=== PATIENT | male | born 1945 | race Two or more races ===

== ENCOUNTER 2024-03-20 14:27 | Emergency (ER) | payer MEDICARE, MEDICAID, SELFPAY ==
[2024-03-20 14:41] VITALS: BP 140/91; PULSE 80; RESP 19; TEMP 36.8; O2SAT 98; BMI 42.0
--- NOTE | 2024-03-20 14:54 | XR_ITS ---
Examination: CT abdomen and pelvis without contrast. Coronal 3-D reconstructions. Sagittal 2-D reconstructions. Date and time of exam:March 20, 2024 at 1500 hrs. Indications: Onset generalized abdominal pain today CTDI: vol (mGy): 16.7 DLP: (mGycm): 1100 Technique: Axial images of the abdomen have been obtained, 3 mm slice thickness Intravenous contrast material has not been administered. Low dose protocols were performed. One or more of the following dose reduction techniques were used; automated exposure control, adjustment of the mA and/or KV according to patient size, use of iterative reconstruction technique. Findings: No focal liver or splenic lesions Absent gallbladder Edema in the duodenum axial image 65 No pancreatic edema Mild renal parenchymal scar formation No pericecal inflammatory change No bowel obstruction No diverticulitis Eccentric thickening of the urinary bladder wall, anteriorly measuring up to 10 mm Transverse prostate dimension 4.3 cm Advanced degenerative disc disease L1-L2, L4-L5, L5-S1 Impression: Edema involving the duodenum consistent with active peptic disease duodenum Mild renal parenchymal scar formation, mild perinephric stranding consider urinary tract infection Abnormal thickening of the urinary bladder wall anteriorly measuring up to 10 mm, differential would include cystitis, early bladder carcinoma not excluded, consider cystoscopy follow-up
--- NOTE | 2024-03-20 14:54 | PD.EDRME ---
Rapid Medical Screening Exam RME Arrival date/time: 03/20/24 14:27 78-year-old male presents the emergency department complaint of abdominal pain all over the last couple of weeks seen by his PCP with started on Cipro Chief Complaint: Abdominal Pain Vital signs: Vital Signs Temperature 98.3 F 03/20/24 14:41 Pulse Rate 80 03/20/24 14:41 Respiratory Rate 19 03/20/24 14:41 Blood Pressure 140/91 H 03/20/24 14:41 Pulse Oximetry (%) 98 03/20/24 14:41 Oxygen Delivery Method Room Air 03/20/24 14:41
[2024-03-20 16:20] LABS: Basophils # (Auto) 0.1 Thou/mm3 (0.0-0.2); Basophils % (Auto) 1 % (0-2.5); Eosinophils # (Auto) 0.1 Thou/mm3 (0.0-0.5); Eosinophils % (Auto) 1 % (0-10); Hematocrit 46.3 % (41.0-53.0); Hemoglobin 16.4 g/dL (13.5-16.0); Immature Granulocytes % (Auto) 1 % (0-0); Immature Granulocytes Auto 0.08 Thou/mm3 (0.00-0.00); Lymphocytes # (Auto) 1.5 Thou/mm3 (1.0-4.8); Lymphocytes % (Auto) 12 % (10-50); Mean Corpuscular HGB Conc 35.4 g/dl (31.0-37.0); Mean Corpuscular Hemoglobin 34.2 pg (25.0-35.0); Mean Corpuscular Volume 97 fL (80-100); Monocytes % (Auto) 8 % (0-12); Neutrophils # (Auto) 9.9 Thou/mm3 (1.8-7.7); Neutrophils % (Auto) 78 % (37-80); Nucleated Red Blood Cell % 0 /100 WBC (0); Platelet Count 250 Thou/mm3 (140-440); RDW Standard Deviation 49.4 fL (35.1-43.9); White Blood Count 12.6 Thou/mm3 (3.8-10.6)
[2024-03-20 16:38] LABS: Alanine Aminotransferase 36 U/L (10-49); Albumin, Serum 3.5 gm/dL (3.4-4.8); Albumin/Globulin Ratio 1.3 (1.2-2.2); Alkaline Phosphatase 93 U/L (46-116); Anion Gap 7 (7-16); Aspartate Amino Transferase 40 U/L (0-34); BUN/Creatinine Ratio 6 Ratio (12-20); Bilirubin,Total 0.7 mg/dL (0.3-1.2); Blood Urea Nitrogen 8 mg/dL (9-23); Calcium 8.9 mg/dL (8.3-10.6); Calcium (Corrected) 9.3 mg/dL (8.5-10.1); Carbon Dioxide 27.8 mMol/L (20.0-31.0); Chloride 104 mMol/L (98-107); Creatinine (Component) 1.3 mg/dL (0.6-1.3); Estimated Creatinine Clearance 61.3 mL/min (>60); Globulin 2.8 gm/dL (2.3-3.5); Glucose 87 mg/dL (74-106); Lipase 36 U/L (12-53); Osmolality,Calculated 274 (275-295); Potassium 4.1 mMol/L (3.4-5.1); Sodium 139 mMol/L (136-145); Total Protein 6.3 gm/dL (5.7-8.2); eGFR 56 See Note
[2024-03-20 18:13] VITALS: BP 141/84; PULSE 88; RESP 16; TEMP 37.1; O2SAT 95
[2024-03-20 19:11] LABS: Collection Type, Urine Clean Catch
[2024-03-20 19:27] LABS: Bacteria,Urine Rare; Bilirubin,Urine Negative (Negative); Blood,Urine Negative (Negative); Clarity,Urine Clear (Clear/Hazy); Color,Urine Yellow (Lt Yel-Yel); Culture Indicated,Urine Not Indicated; Glucose, Urine Negative (Negative); Hyaline Casts,Urine < 1 /hpf (0-1); Ketones,Urine Trace (Negative); Leukocyte Esterase,Urine Negative (Negative); Nitrite,Urine Negative (Negative); Protein,Urine 1+ (Neg - Trace); RBC,Urine 1 /hpf (0-3); Specific Gravity,Urine 1.021 (1.001-1.035); Squamous Epithelial Cell,Urine < 1 /hpf (0-5); Urobilinogen,Urine Negative mg/dL (0.0-1.0); WBC,Urine 3 /hpf (0-5)
[2024-03-20 21:28] VITALS: BP 141/73; PULSE 83; RESP 17; TEMP 36.6; O2SAT 97
--- NOTE | 2024-03-20 21:35 | EDNOTE_ITS ---
ED Abdominal Pain RME/HPI General Chief Complaint: Abdominal Pain Stated complaint: abd pain x1 month Time seen by provider: 03/20/24 21:33 Arrival date/time: 03/20/24 14:27 Limitations: no limitations RME / HPI RME / HPI narrative: 03/20/24 14:27 78-year-old male presents the emergency department complaint of abdominal pain all over the last couple of weeks seen by his PCP with started on Cipro DR. BHARDWAJ MAIN ED EVALUATION: 78-year-old male presents to the Emergency Department with complaint of decreased appetite for the last week. He denies abdominal pain. He recently finished a course of Ciprofloxacin ?diarrhea three weeks ago and was told if he does not feel better to come to the emergency department . He has not follow back up with his primary care physician. He also prescribed famotidine which he is taking. He denies eating. He just states he ?gets full easy?. He denies belching or burping. Related Data Home Medications ?Medication ?Instructions ?Recorded ?Confirmed ibuprofen 800 mg tablet 800 mg PO TID PRN Pain 09/25/20 11/23/23 lisinopril 40 mg tablet 40 mg PO QDAY 03/05/23 11/23/23 Previous Rx's ?Medication ?Instructions ?Recorded pantoprazole 40 mg tablet,delayed 40 mg PO QDAY #20 tabs 03/20/24 release (Protonix) Allergies Allergy/AdvReac Type Severity Reaction Status Date / Time aspirin Allergy Intermediate UPSET Verified 11/23/23 10:58 STOMACH Review of Systems Review of Systems Systems Reviewed: All systems reviewed, normal except as documented Narrative Review of Systems: GEN: No fever, no chills, no weight loss, + decreased appetite EYES: No discharge, no visual changes, no pain HEENT: No ear pain, no congestion, no sore throat PULM: No shortness of breath, no cough, no congestion CV: No chest pain, no dyspnea on exertion, no palpitations GI: No nausea, no vomiting, no diarrhea, no pain, no constipation : No frequency, no urgency and no dysuria MUSC/SKEL: No joint pain, no back pain SKIN: No rash PSYCH: No hallucinations, no depression HEME/LYMPH: No easy bleeding or bruising tendencies NEURO: No weakness, no headache Past Medical History Past Medical History CARDIAC: Positive Hypertension GASTROINTESTINAL: Positive Gall Bladder Disease and Gastroesophageal Reflux Disease Family History FAMILY HISTORY: Positive Family Cardiac Disorders, Family Gastrointestinal Problems, Family Cancer and Family Surgery; Negative Family Psychiatric Problems, Family Respiratory Disorders or Family Anesthesia Reaction Social History SMOKING STATUS: Never smoker SUBSTANCE USE: does not use ALCOHOL: Never ED Exam General Limitations: Present no limitations General appearance: Present alert and in no apparent distress Head Head exam: Present atraumatic, normocephalic and normal inspection Eye Eye exam: Present normal appearance, PERRL and EOMI ENT ENT exam: Present normal exam, normal oropharynx and mucous membranes moist Neck Neck exam: Present normal inspection, full ROM and trachea midline Chest Chest inspection: Present normal inspection and symmetric chest wall rise Respiratory Respiratory exam: Present normal lung sounds bilaterally Cardiovascular Cardiovascular exam: Present regular rate, normal rhythm and normal heart sounds Abdominal Exam Abdominal exam: Present soft and normal bowel sounds Extremities Exam Extremities exam: Present normal inspection and full ROM Back Exam Back exam: Present normal inspection and full ROM Neurological Exam Neurological exam: Present alert, oriented X3 and CN II-XII intact Psychiatric Psychiatric exam: Present normal affect and normal mood Skin Skin exam: Present warm, dry, intact and normal color Course Quality Measures none Orders Category Date Time Status CT abdomen pelvis wo con Stat Exams 03/20/24 14:54 Completed CBC Stat Lab 03/20/24 15:45 Completed Comprehensive Metabolic Panel Stat Lab 03/20/24 15:45 Completed Lipase Stat Lab 03/20/24 15:45 Completed UA, C/S IF [Urinalysis, C/S if Indicated] Stat Lab 03/20/24 18:25 Completed Vital Signs Vital signs: Vital Signs Temperature 98.3 F 03/20/24 14:41 Pulse Rate 80 03/20/24 14:41 Respiratory Rate 19 03/20/24 14:41 Blood Pressure 140/91 H 03/20/24 14:41 Pulse Oximetry (%) 98 03/20/24 14:41 Oxygen Delivery Method Room Air 03/20/24 14:41 Abdominal Pain MDM MDM Narrative MDM Narrative:: Makenzie Connelly am scribing for and in the presence of Dr. Bhardwaj. Patient data External records reviewed:: [facility] previous records (Reviewed Orthopedics note by Dr. Pack dated 11/23/23.) Clinical information provided by:: patient Social determinants that could affect healthcare access:: none Patient has the following chronic illnesses:: Hypertension and arthritis How is presenting disease/condition affected by chronic disease/condition?: uneffected by Evaluation data The following diagnostics were reviewed and interpreted by me:: lab results and radiology exam(s) Lab and/or radiology exams considered but not ordered:: none Interpretation Summary: Procedure(s): CT abdomen pelvis wo [facility] Accession Number(s): [id number] cc: Og (ERLIN),Tonio KERN; King Garcia MD~ Examination: CT abdomen and pelvis without contrast. Coronal 3-D reconstructions. Sagittal 2-D reconstructions. Date and time of exam:March 20, 2024 at 1500 hrs. Indications: Onset generalized abdominal pain today CTDI: vol (mGy): 16.7 DLP: (mGycm): 1100 Technique: Axial images of the abdomen have been obtained, 3 mm slice thickness Intravenous contrast material has not been administered. Low dose protocols were performed. One or more of the following dose reduction techniques were used; automated exposure control, adjustment of the mA and/or KV according to patient size, use of iterative reconstruction technique. Findings: No focal liver or splenic lesions Absent gallbladder Edema in the duodenum axial image 65 No pancreatic edema Mild renal parenchymal scar formation No pericecal inflammatory change No bowel obstruction No diverticulitis Eccentric thickening of the urinary bladder wall, anteriorly measuring up to 10 mm Transverse prostate dimension 4.3 cm Advanced degenerative disc disease L1-L2, L4-L5, L5-S1 Impression: Edema involving the duodenum consistent with active peptic disease duodenum Mild renal parenchymal scar formation, mild perinephric stranding consider urinary tract infection Abnormal thickening of the urinary bladder wall anteriorly measuring up to 10 mm, differential would include cystitis, early bladder carcinoma not excluded, consider cystoscopy follow-up Dictated By: King Garcia MD Medications / Prescriptions Medications or Prescriptions considered but not ordered:: none Medication administrations:: see above if any Consultations Consultation(s) initiated? (list below): No Diagnosis Differential diagnosis abdominal pain: abdominal pain, constipation, small bowel obstruction and other (GERD) Most likely diagnosis given after review of the tests above:: As noted below. Admission Indicated Admission indicated?: not indicated Admission Request Was there a request for admission?: No Disposition Plan Disposition Plan: Discharge Discharge Attestation Discharge Attestation: The patient and all family members were given an opportunity to ask questions and understood the discharge instructions. Discharge instructions specifically effects, indications for sooner follow up or return to the emergency department, and the expected course of current diagnosis. Patient condition: Stable Discharge Plan Plan Patient Disposition: HOME (Self Care) Prescriptions/Referrals Prescriptions/Med Rec: New pantoprazole [Protonix] 40 mg tablet,delayed release (DR/EC) 40 mg PO QDAY Qty: 20 0RF No Action lidocaine HCl [Xylocaine] 10 mg/mL (1 %) solution 20 ml Infiltration X1 Qty: 20 0RF triamcinolone acetonide 40 mg/mL suspension 40 mg intra-articular .x2 Qty: 1 0RF lisinopril 40 mg tablet 40 mg PO QDAY ibuprofen 800 mg Tablet 800 mg PO TID PRN (Reason: Pain) Referrals: Rubén Triana MD [Primary Care Provider] - In 1 week Problem List Clinical Impression: Peptic ulcer disease Patient/Caregiver Discharge Instructions Education Materials: ED PEPTIC ULCER vs GASTRITIS Additional Instructions: You can continue with your normal famotidine for the next 5 days to take with today's prescribed Protonix. After 5 days you can continue with just the Protonix and follow-up with your primary care doctor in 10 to 14 days for recheck. Feel free return to the emergency department sooner if symptoms worsen or if you notice any new, concerning issues. Print Language: Serbian Stand Alone Forms: Kamilah Award Info., Patient Portal Info Letter
--- NOTE | 2024-03-20 21:37 | PC.NURSE ---
Dr. Christianson at bedside to speak to pt
== END 2024-03-20 23:05 | disposition home or self-care (01) ==
PROVIDERS: Nurse Practitioner Primary Care; Emergency Provider Emergency Medicine; PCP Internal Medicine
DX: K27.9 Peptic ulcer, site unspecified, unspecified as acute or chronic, without hemorrhage or perforation (principal)
CPT/HCPCS: 36415; 74176; 80053; 81001; 83690; 85025; 99284

== ENCOUNTER 2024-05-29 13:41 | Emergency (ER) | payer MEDICARE, MEDICAID, SELFPAY ==
[2024-05-29 13:46] VITALS: BP 110/67; PULSE 106; RESP 18; TEMP 37.4; O2SAT 91
[2024-05-29 13:51] VITALS: BMI 30.4
[2024-05-29 13:57] VITALS: BP 125/75; PULSE 94; RESP 18
--- NOTE | 2024-05-29 15:00 | XR_ITS ---
Examination: Abdomen AP single view Technique: AP portable supine abdomen, single view Exam date and time: May 29, 2024 1559 hours INDICATIONS: Constipation last night. FINDINGS: Mild air and stool throughout the colon No obstruction No free air Minimal small bowel ileus Surgical clips upper right abdomen IMPRESSION: Nonobstructive bowel gas pattern
--- NOTE | 2024-05-29 15:00 | PD.EDRME ---
Rapid Medical Screening Exam E Arrival date/time: 05/29/24 13:41 78-year-old male presents to the emergency department with complaints of lower abdominal pain and rectal pain history of hemorrhoids and constipation. I have greeted and performed a focused initial assessment of this patient. Initial appropriate labs ordered at this time. A comprehensive ED assessment and evaluation of the patient and analysis of all test and completion of medical decision making process will be conducted by additional ED provider. Chief Complaint: General Adult/Misc Complain Time Seen by Provider: 05/29/24 14:39 Vital signs: Vital Signs Temperature 99.3 F 05/29/24 13:46 Pulse Rate 106 H 05/29/24 13:46 Respiratory Rate 18 05/29/24 13:46 Blood Pressure 110/67 05/29/24 13:46 Pulse Oximetry (%) 91 L 05/29/24 13:46 Oxygen Delivery Method Room Air 05/29/24 13:46
[2024-05-29 15:35] LABS: Basophils # (Auto) 0.1 Thou/mm3 (0.0-0.2); Basophils % (Auto) 0 % (0-2.5); Eosinophils # (Auto) 0.3 Thou/mm3 (0.0-0.5); Eosinophils % (Auto) 2 % (0-10); Hemoglobin 15.5 g/dL (13.5-16.0); Immature Granulocytes % (Auto) 1 % (0-0); Immature Granulocytes Auto 0.09 Thou/mm3 (0.00-0.00); Lymphocytes # (Auto) 1.7 Thou/mm3 (1.0-4.8); Lymphocytes % (Auto) 13 % (10-50); Mean Corpuscular HGB Conc 35.2 g/dl (31.0-37.0); Mean Corpuscular Hemoglobin 34.4 pg (25.0-35.0); Mean Corpuscular Volume 98 fL (80-100); Monocytes # (Auto) 1.1 Thou/mm3 (0.0-0.8); Monocytes % (Auto) 8 % (0-12); Neutrophils # (Auto) 10.3 Thou/mm3 (1.8-7.7); Neutrophils % (Auto) 76 % (37-80); Nucleated Red Blood Cell % 0 /100 WBC (0); Platelet Count 303 Thou/mm3 (140-440); RDW Standard Deviation 58.8 fL (35.1-43.9); White Blood Count 13.5 Thou/mm3 (3.8-10.6)
[2024-05-29 15:53] LABS: Collection Type, Urine Clean Catch; Squamous Epithelial Cell,Urine 0 /hpf (0-5)
[2024-05-29 15:58] LABS: Alanine Aminotransferase 36 U/L (10-49); Albumin, Serum 2.9 gm/dL (3.4-4.8); Albumin/Globulin Ratio 0.8 (1.2-2.2); Alkaline Phosphatase 173 U/L (46-116); Anion Gap 8 (7-16); Aspartate Amino Transferase 52 U/L (0-34); BUN/Creatinine Ratio 17 Ratio (12-20); Bilirubin,Total 2.2 mg/dL (0.3-1.2); Blood Urea Nitrogen 17 mg/dL (9-23); Calcium 8.3 mg/dL (8.3-10.6); Calcium (Corrected) 9.2 mg/dL (8.5-10.1); Carbon Dioxide 28.9 mMol/L (20.0-31.0); Chloride 106 mMol/L (98-107); Estimated Creatinine Clearance 65.5 mL/min (>60); Globulin 3.5 gm/dL (2.3-3.5); Glucose 89 mg/dL (74-106); Lipase 40 U/L (12-53); Osmolality,Calculated 285 (275-295); Potassium 4.3 mMol/L (3.4-5.1); Sodium 143 mMol/L (136-145); Total Protein 6.4 gm/dL (5.7-8.2); eGFR > 60 See Note
[2024-05-29 16:24] LABS: Bilirubin,Urine 2+ (Negative); Blood,Urine Negative (Negative); Clarity,Urine Clear (Clear/Hazy); Color,Urine Drk-Yellow (Lt Yel-Yel); Glucose, Urine Negative (Negative); Hyaline Casts,Urine < 1 /hpf (0-1); Ketones,Urine Trace (Negative); Leukocyte Esterase,Urine Negative (Negative); Nitrite,Urine Negative (Negative); Protein,Urine 1+ (Neg - Trace); RBC,Urine 1 /hpf (0-3); Specific Gravity,Urine 1.026 (1.001-1.035); WBC,Urine 2 /hpf (0-5)
[2024-05-29 19:32] VITALS: BP 109/72; PULSE 96; RESP 18; TEMP 37; O2SAT 95
--- NOTE | 2024-05-29 20:20 | PC.NURSE ---
Patient was changed into a grown and placed in room 17 in the ER for review of labs.
--- NOTE | 2024-05-29 21:09 | PD.EDADULT ---
ED General RME/HPI General Chief complaint: Abdominal Pain Stated complaint: CONSTIPATION/WEAKNESS Time Seen by Provider: 05/29/24 14:39 Arrival date/time: 05/29/24 13:41 CC: Diarrhea and rectal pain HPI ongoing for the past several days. The patient is in in episodes of diarrhea that are relieved temporarily with Imodium A-D but now has pressure sensation when he bears down, with a burning sensation. Patient currently has diarrhea which is restarted in the past 2 days 4 days prior to this the patient was on immediate Imodium and had no diarrhea. Past medical history includes C. difficile for which the patient was treated. Patient also complaining of swollen lower extremities. Left leg has been chronic for decades however the right leg has been for the past several weeks. RME / HPI RME / HPI narrative: 05/29/24 13:41 78-year-old male presents to the emergency department with complaints of lower abdominal pain and rectal pain history of hemorrhoids and constipation. I have greeted and performed a focused initial assessment of this patient. Initial appropriate labs ordered at this time. A comprehensive ED assessment and evaluation of the patient and analysis of all test and completion of medical decision making process will be conducted by additional ED provider. Related Data Home Medications ?Medication ?Instructions ?Recorded ?Confirmed ibuprofen 800 mg tablet 800 mg PO TID PRN Pain 09/25/20 11/23/23 lisinopril 40 mg tablet 40 mg PO QDAY 03/05/23 11/23/23 Previous Rx's ?Medication ?Instructions ?Recorded pantoprazole 40 mg tablet,delayed 40 mg PO QDAY #20 tabs 03/20/24 release (Protonix) furosemide 20 mg tablet (Lasix) 20 mg PO QAM #4 tabs 05/29/24 zinc oxide 22 % topical cream 1 applic topical .Twice daily #113 05/29/24 grams Allergies Allergy/AdvReac Type Severity Reaction Status Date / Time aspirin Allergy Intermediate UPSET Verified 11/23/23 10:58 STOMACH Review of Systems Review of Systems Narrative Review of Systems: GEN: No fever, no chills, no weight loss EYES: No discharge, no visual changes, no pain HEENT: No ear pain, no congestion, no sore throat PULM: No shortness of breath, no cough, no congestion CV: No chest pain, no dyspnea on exertion, no palpitations GI: No nausea, no vomiting, no diarrhea, no pain, no constipation : No frequency, no urgency, no dysuria MUSC/SKEL: No joint pain, no back pain SKIN: No rash PSYCH: No hallucinations, no depression HEME/LYMPH: No easy bleeding or bruising tendencies NEURO: No weakness, no headache ED Exam Narrative Physical exam: [General: Deconditioned but not in any acute distress Head normocephalic HEENT: Within acceptable limits Neck is supple nontender Chest equal chest rise nontender to palpation Respiratory: Clear to auscultation no wheezes crackles or rubs CV: Rate rhythm is regular no murmurs rubs or clicks Abdomen is distended secondary to body habitus soft nontender no masses positive bowel sounds all 4 quadrants Rectum: Poor rectal tone small amount of shukla diarrhea. Rectal area is excoriated with no open lesions or bleeding. Back: No CVA tenderness no spinous process tenderness from cervical spine thoracic and lumbar spine Skin: Intact no petechiae rash induration ulceration or crepitus Extremities: Moving all extremity against resistance cap refill less than 2 seconds neurosensory intact, 2+ pitting edema in both ankles and up to the base of the knee bilaterally. No abdominal or hip edema. Neuro: Awake alert oriented x3 Glascow coma 15 no focal deficits] Course Quality Measures none Orders Category Date Time Status XR abdomen 1V Stat Exams 05/29/24 15:00 Completed CBC Stat Lab 05/29/24 15:20 Completed Comprehensive Metabolic Panel Stat Lab 05/29/24 15:20 Completed Lipase Stat Lab 05/29/24 15:20 Completed Urinalysis Stat Lab 05/29/24 15:40 Completed Vital Signs Vital signs: Vital Signs Temperature 99.3 F 05/29/24 13:46 Pulse Rate 106 H 05/29/24 13:46 Respiratory Rate 18 05/29/24 13:46 Blood Pressure 110/67 05/29/24 13:46 Pulse Oximetry (%) 91 L 05/29/24 13:46 Oxygen Delivery Method Room Air 05/29/24 13:46 [facility] Patient data External records reviewed:: [facility] previous records Clinical information provided by:: patient and family Social determinants that could affect healthcare access:: none Patient has the following chronic illnesses:: Hypertension How is presenting disease/condition affected by chronic disease/condition?: uneffected by Evaluation data The following diagnostics were reviewed and interpreted by me:: lab results and radiology exam(s) Lab and/or radiology exams considered but not ordered:: CBC has a leukocytosis of 13.5 no anemia thrombocytopenia CMP shows no acute electrolyte imbalances renal impairment mild transaminitis elevation, with T. bili of 2.2. Lipase of 40 Urine is negative for UTI Abdominal x-ray as interpreted by radiology shows unobstructed bowel bladder pattern. Interpretation Summary: Buttock excoriation, lower extremity edema Medications Medications considered but not ordered:: None Medication administrations:: None Consultations Consultation(s) initiated? (list below): No Diagnosis Differential Diagnosis ED Complaint MDM: Constipation ileus obstipation Most likely diagnosis given after review of the tests above:: Buttock excoriation, lower extremity edema Admission Indicated Admission indicated?: not indicated Explain why admission is indicated or not indicated:: Stable for outpatient follow-up Admission Request Was there a request for admission?: No Disposition Plan Disposition Plan: Discharge Discharge Attestation Discharge Attestation: The patient and all family members were given an opportunity to ask questions and understood the discharge instructions. Discharge instructions specifically effects, indications for sooner follow up or return to the emergency department, and the expected course of current diagnosis. Patient condition: Stable Medical Decision Making Differential Diagnosis Differential Diagnosis: Constipation ileus obstipation Lab Data 05/29/24 15:20 05/29/24 15:20 Labs: Lab Results 05/29/24 05/29/24 Range/Units 15:20 15:40 WBC 13.5 H (3.8-10.6) Thou/mm3 RBC 4.50 (4.50-5.90) Miln/mm3 Hgb 15.5 (13.5-16.0) g/dL Hct 44.0 (41.0-53.0) % MCV 98 (80-100) fL MCH 34.4 (25.0-35.0) pg MCHC 35.2 (31.0-37.0) g/dl RDW Std Deviation 58.8 H (35.1-43.9) fL Plt Count 303 (140-440) Thou/mm3 Neut % (Auto) 76 (37-80) % Lymph % (Auto) 13 (10-50) % Stanley % (Auto) 8 (0-12) % Eos % (Auto) 2 (0-10) % Baso % (Auto) 0 (0-2.5) % Neut # (Auto) 10.3 H (1.8-7.7) Thou/mm3 Lymph # (Auto) 1.7 (1.0-4.8) Thou/mm3 Stanley # (Auto) 1.1 H (0.0-0.8) Thou/mm3 Eos # (Auto) 0.3 (0.0-0.5) Thou/mm3 Baso # (Auto) 0.1 (0.0-0.2) Thou/mm3 Immature Gran # (Auto) 0.09 H (0.00-0.00) Thou/mm3 Absolute Nucleated RBC 0.00 (0.00-0.00) Thou/mm3 Immature Gran % 1 H (0-0) % Nucleated RBC % 0 (0) /100 WBC Sodium 143 (136-145) mMol/L Potassium 4.3 (3.4-5.1) mMol/L Chloride 106 (98-107) mMol/L Carbon Dioxide 28.9 (20.0-31.0) mMol/L Anion Gap 8 (7-16) BUN 17 (9-23) mg/dL Creatinine 1.0 (0.6-1.3) mg/dL Estim Creat Clear Calc 65.5 (>60) mL/min eGFR > 60 (60 - ) See Note BUN/Creatinine Ratio 17 (12-20) Ratio Glucose 89 (74-106) mg/dL Calculated Osmolality 285 (275-295) Calcium 8.3 (8.3-10.6) mg/dL Corrected Calcium 9.2 (8.5-10.1) mg/dL Total Bilirubin 2.2 H (0.3-1.2) mg/dL AST 52 H (0-34) U/L ALT 36 (10-49) U/L Alkaline Phosphatase 173 H (46-116) U/L Total Protein 6.4 (5.7-8.2) gm/dL Albumin 2.9 L (3.4-4.8) gm/dL Globulin 3.5 (2.3-3.5) gm/dL Albumin/Globulin Ratio 0.8 L (1.2-2.2) Lipase 40 (12-53) U/L Ur Collection Type Clean Catch Urine Color Drk-Yellow A (Lt Yel-Yel) Urine Clarity Clear (Clear/Hazy) Urine pH 6.0 (5.0-7.0) Ur Specific [place] 1.026 (1.001-1.035) Urine Protein 1+ A (Neg - Trace) Urine Glucose (UA) Negative (Negative) Urine Ketones Trace (Negative) Urine Blood Negative (Negative) Urine Nitrite Negative (Negative) Urine Bilirubin 2+ A (Negative) Urine Urobilinogen (Auto) 2.0 (0.0-1.0) mg/dL Ur Leukocyte Esterase Negative (Negative) Urine RBC 1 (0-3) /hpf Urine WBC 2 (0-5) /hpf Ur Squamous Epith Cells 0 (0-5) /hpf Urine Bacteria None (None) Hyaline Casts < 1 (0-1) /hpf Discharge Plan Plan Patient Disposition: HOME (Self Care) Patient condition on transfer: Stable Prescriptions/Referrals Prescriptions/Med Rec: New furosemide [Lasix] 20 mg tablet 20 mg PO QAM Qty: 4 0RF zinc oxide 22 % cream 1 applic topical .Twice daily Qty: 113 0RF No Action lidocaine HCl [Xylocaine] 10 mg/mL (1 %) solution 20 ml Infiltration X1 Qty: 20 0RF triamcinolone acetonide 40 mg/mL suspension 40 mg intra-articular .x2 Qty: 1 0RF lisinopril 40 mg tablet 40 mg PO QDAY ibuprofen 800 mg Tablet 800 mg PO TID PRN (Reason: Pain) pantoprazole [Protonix] 40 mg tablet,delayed release (DR/EC) 40 mg PO QDAY Qty: 20 0RF Referrals: Rubén Triana MD [Primary Care Provider] - In 1 week Problem List Clinical Impression: Pain, rectal, Bilateral edema of lower extremity Patient/Caregiver Discharge Instructions Education Materials: ED Leg Swelling in Both Legs Additional Instructions: Apply the cream to the rectum twice a day to help provide a barrier as long as you have diarrhea. Take the medications each morning for the next 4 days. Print Language: Filipino Stand Alone Forms: Kamilah Award Info., Patient Portal Info Letter, Work/School Release PA/DISTRICT LOSS PREVENTION MANAGER Supervising Physician PA/DISTRICT LOSS PREVENTION MANAGER Supervising Physician: Hina Leung ENP
--- NOTE | 2024-05-29 21:15 | PC.NURSE ---
PATIENT STARTED TO THROW THINGS AND SPIT AT STAFF A SHERYL BOWEN WAS CALLED AND PROVIDER ORDERED MEDS AND RESTRAINTS FOR PATIENTS SAFETY AND STAFFS SAFETY.
[2024-05-29] MEDS: COD LIV OIL/ZNOX CREAM 40% 60 GM TUBE TOP (21:36)
[2024-05-29 21:41] VITALS: BP 110/70; PULSE 86; RESP 18; TEMP 36.8; O2SAT 95
== END 2024-05-29 21:47 | disposition home or self-care (01) ==
PROVIDERS: Nurse Practitioner Primary Care; Emergency Provider Emergency Medicine; PCP Internal Medicine
DX: K62.89 Other specified diseases of anus and rectum (principal); R60.0 Localized edema; K59.00 Constipation, unspecified
CPT/HCPCS: 36415; 74018; 80053; 81001; 83690; 85025; 99283; A9270

== ENCOUNTER → 2024-06-05 | Outpatient (CLI) | payer MEDICARE, MEDICAID, SELFPAY | END | disposition home or self-care (01) | LOC: SLDO 13:50 | PROVIDERS: Referring Provider Internal Medicine; Visit Provider Internal Medicine | DX: R19.7 Diarrhea, unspecified (principal) | CPT/HCPCS: 87015; 87045; 87046; 87177; 87209; 87493; 87899 ==

== ENCOUNTER 2024-08-19 14:03 | Inpatient (IN) | payer MEDICARE, MEDICAID, SELFPAY ==
--- NOTE | 2024-08-19 14:12 | XR_ITS ---
Examination: CT brain head without contrast. 2-D sagittal coronal reconstructions Date and time of exam:08/19/2024, 3:16 PM CTDI: vol (mGy):53.3 DLP: (mGycm):1177 INDICATION: Confusion Technique: Multiple CT axial sections of the brain have been obtained, 5 mm slice thickness. Contrast has not been administered. 2-D sagittal, coronal reconstructions have been obtained Low dose protocols were performed. One or more of the following dose reduction techniques were used; automated exposure control, adjustment of the mA and/or KV according to patient size, use of iterative reconstruction technique. Findings: Diffuse cortical atrophy with associated ventricular and extra-axial enlargement. Periventricular low density white matter changes consistent with chronic small vessel disease. Intra-axial or extra-axial hemorrhage density is not seen. No mass effect or midline shift Basal cisterns are not remarkable. Fourth ventricle is midline. Cranial vault intact. Impression: Negative for acute hemorrhage, mass effect or midline shift. Chronic changes as above
--- NOTE | 2024-08-19 14:12 | EKG_ITS ---
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
--- NOTE | 2024-08-19 14:12 | XR_ITS ---
Exam: Chest 1 view, AP Date and time of exam: 08/19/2024, 3:24 PM INDICATION: Hypoxia Comparison: 12/23/2021. Findings: Study limited by patient rotation and low lung volumes. Diffuse ill-defined opacification throughout the visualized left lung mason. Left hemidiaphragm and left costophrenic angle are obscured. Blunting of the right costophrenic angle. No pneumothorax. No acute bony abnormality. Impression: Limited study as above. Diffuse left-sided infiltrate. Possible bilateral pleural effusions
--- NOTE | 2024-08-19 14:13 | EDNOTE_ITS ---
<Statement entered by Kelsie Hudson MD - 08/20/24 15:22> As co-signing physician, I was present and available for consult prn. I concur with the plan and care as documented by the midlevel provider. ED General RME/HPI General Chief complaint: Shortness of Breath/Dyspnea Stated complaint: LOW OXYGEN Time Seen by Provider: 08/19/24 14:06 Arrival date/time: 08/19/24 14:03 RME / HPI RME / HPI narrative: 78-year-old male patient with significant history of hypertension, was sent to us from home for evaluation regarding hypoxia. Apparently patient was noted to be hypoxic, with oxygen saturation less than 90%. Patient was also noted to be confused for the last few days that comes and goes. On my initial evaluation patient is able to answer question appropriately, was noted to be alert and oriented x 3. Patient is denying any complaints. He told me that he is okay. Related Data Home Medications ?Medication ?Instructions ?Recorded ?Confirmed ibuprofen 800 mg tablet 800 mg PO TID PRN Pain 09/2511/23/23 lisinopril 40 mg tablet 40 mg PO QDAY 03/05/2311/22 Previous Rx's ?Medication ?Instructions ?Recorded pantoprazole 40 mg tablet,delayed 40 mg PO QDAY #20 ta bs 03/20/24 release (Protonix) furosemide 20 mg tablet (Lasix) 20 mg PO QAM #4 tabs 0 05/29/24 zinc oxide 22 % topical cream 1 applic topical .Twice daily #113 05/29/24 grams Allergies Allergy/AdvReac Type Severity Reaction Status Date / Time aspirin Allergy Intermediate UPSET Verified 11/23/23 10:58 STOMACH Review of Systems Review of Systems Narrative Review of Systems: Review of system reviewed and within normal limits except mentioned in HPI ED Exam Narrative Physical exam: VITAL SIGNS: Reviewed. GENERAL APPEARANCE: Alert and interactive, follows commands, no acute distress, HEAD AND FACE: Non-traumatic. ENT: PERRL, pink conjunctivitis, eyelid no trauma, Mucous membrane moist. NECK: Supple, nontender, no nuchal rigidity. CHEST: No tenderness, no crepitus, no paradoxical movement, no retractions. LUNGS: Clear, well ventilated, symmetric, no rales, no wheezing, no ronchi, no stridor, good breath sounds bilaterally. HEART: Regular rate, regular rhythm, no murmur, no gallops. ABDOMEN: Soft, positive bowel sounds, nondistended, no guarding, nontender, no rebound, no masses, RECTAL: Deferred. GENITAL: Deferred. NEUROLOGICAL: Gross motor function intact sensory function intact, Appropriate for age. MUSCULOSKELETAL: low back nontender, full range of motion. EXTREMITIES: Nontender, full range of motion. SKIN: Color pink, dry, no rash, no lacerations, no abrasions, no contusions. LYMPHATICS: Deferred. Course Quality Measures none Orders Category Date Time Status COVID-19 Screening Questionnaire NOW Care 08/19/24 16:44 Active Decision to Admit X1 Care 08/19/24 16:44 Active EKG (ED ONLY) *Do not use* NOW Care 08/19/24 14:[address] head/brain wo con Stat Exams 08/19/24 14:12 Completed EKG (ED Only) Stat Exams 08/19/24 14:12 Draft XR chest 1V Stat Exams 08/19/24 14:12 Completed B-Type Natriuretic Peptide Stat Lab 08/19/24 14:59 Completed Blood Culture (Lab) Stat Lab 08/19/24 14:59 Received C-Reactive Protein Stat Lab 08/19/24 14:59 Completed CBC Stat Lab 08/19/24 14:59 Completed Comprehensive Metabolic Panel Stat Lab 08/19/24 14:59 Completed Lactate (Lactic Acid) Stat Lab 08/19/24 14:59 Results Partial Thromboplastin Time Stat Lab 08/19/24 14:59 Completed Procalcitonin Stat Lab 08/19/24 14:59 Completed Prothrombin Time with INR Stat Lab 08/19/24 14:59 Completed Troponin I Stat Lab 08/19/24 14:59 Completed UA, C/S IF [Urinalysis, C/S if Indicated] Stat Lab 08/19/24 14:50 Completed Azithromycin Inj [Zithromax Inj] 500 mg Med 08/19/24 16:21 Discontinued Sodium Chloride 0.9% 250 ml [Ns] 250 ml IV X1 KCL 10% Liq UDC 15 ML Med 08/19/24 17:33 Discontinued 40 meq PO X1 ONE POTASSIUM CHL 10 mEq IVPB [Kcl Ivpb] Med 08/19/24 16:22 Discontinued 10 meq in 100 ml IV X1 Potassium Chloride [K-Dur] Med 08/19/24 16:21 Discontinued 40 meq PO X1 ONE Ringers Lactated 1000 ml [Lactated Ringers] 1,000 ml Med 08/19/24 16:37 Discontinued IV 999 mls/hr cefTRIAXone/D5w 1gm IV premix [Rocephin/D5w 1gm IV Med 08/19/24 16:21 Discontinued premix] 1 gm in 50 ml IV X1 Vital Signs Vital signs: Vital Signs Temperature 98.6 F 08/19/24 15:06 Pulse Rate 91 08/19/24 15:06 Respiratory Rate 18 08/19/24 15:06 Blood Pressure 113/87 H 08/19/24 15:06 Pulse Oximetry (%) 96 08/19/24 15:06 Oxygen Delivery Method Nasal Cannula 08/19/24 15:06 Oxygen Flow Rate 1.5 08/19/24 15:06 [facility] Patient data External records reviewed:: None Clinical information provided by:: patient Social determinants that could affect healthcare access:: none Patient has the following chronic illnesses:: None How is presenting disease/condition affected by chronic disease/condition?: no chronic disease Evaluation data The following diagnostics were reviewed and interpreted by me:: lab results, radiology exam(s) and EKG tracing(s) Lab and/or radiology exams considered but not ordered:: None Interpretation Summary: EKG showed atrial fibrillation ventricular rate of 95 bpm, no ST segment elevation depression noted. Medications Medications considered but not ordered:: None Medication administrations:: Medication Administration History Discontinued Medications Ceftriaxone Sodium/Dextrose (Rocephin/D5w 1gm Iv Premix) 1 gm in 50 mls @ 100 mls/hr IV X1 ONE Stop: 08/19/24 16:50 Last Admin: 08/19/24 17:17 Dose: 100 mls/hr Documented By: Azithromycin 500 mg/ Sodium (Chloride) 250 mls @ 250 mls/hr IV X1 ONE Stop: 08/19/24 17:20 Potassium Chloride (Kcl Ivpb) 10 meq in 100 mls @ 100 mls/hr IV X1 ONE Stop: 08/19/24 17:21 Lactated Ringer's (Lactated Ringers) 1,000 mls @ 999 mls/hr IV .Q1H1M ONE Stop: 08/19/24 17:37 Potassium Chloride (Potassium Chloride 20 Meq Tabcr) 40 meq PO X1 ONE Stop: 08/19/24 16:22 Potassium Chloride (Potassium Chloride 10% 20 Meq/15 Ml Udc) 40 meq PO X1 ONE Stop: 08/19/24 17:34 Potassium replacement, IV fluid hydration Zithromax IV and ceftriaxone IV Consultations Consultation(s) initiated? (list below): No Diagnosis Differential Diagnosis ED Complaint MDM: Altered mental status, pneumonia, hypoxia Most likely diagnosis given after review of the tests above:: Altered mental status, pneumonia, hypoxia Admission Indicated Admission indicated?: indicated Explain why admission is indicated or not indicated:: Needs to be admitted for further management. Admission Request Was there a request for admission?: Yes Admission Attestation Admission request attestation: Discussed case with [Dr. Carlos] from Hospitalist service regarding admission. Discussed patients ED course, exam findings, labs, and radiology results. The Hospitalist [agrees,] to accept the patient for admission. Disposition Plan Disposition Plan: Admit Medical Decision Making MDM Narrative MDM Narrative: 78-year-old male patient with significant history of hypertension, was sent to us from home for evaluation regarding hypoxia. Apparently patient was noted to be hypoxic, with oxygen saturation less than 90%. Patient was also noted to be confused for the last few days that comes and goes. On my initial evaluation patient is able to answer question appropriately, was noted to be alert and oriented x 3. Patient is denying any complaints. He told me that he is okay. Patient is DNR EKG showed atrial fibrillation, ventricular rate of 95 bpm, no ST segment elevation or depression noted. Potassium was noted to be 2.6. CBC no leukocytosis. Lactic acid 2.6. Total bili was noted to be 1.3. C-reactive protein is 1.7. Urinalysis no UTI chest x-ray showed Limited study as above. Diffuse left-sided infiltrate. Possible bilateral pleural effusions Currently patient is satting 92% on 2 L. Patient received IV fluids, IV ceftriaxone and IV Zithromax. Differential Diagnosis Differential Diagnosis: Altered mental status, pneumonia, hypoxia Lab Data 08/19/24 14:59 08/19/24 14:59 Labs: Lab Results 08/19/24 08/19/24 Range/Units 14:50 14:59 WBC 8.3 (3.8-10.6) Thou/mm3 RBC 3.62 L (4.50-5.90) Miln/mm3 Hgb 12.2 L (13.5-16.0) g/dL Hct 33.3 L (41.0-53.0) % MCV 92 (80-100) fL MCH 33.7 (25.0-35.0) pg MCHC 36.6 (31.0-37.0) g/dl RDW Std Deviation 46.2 H (35.1-43.9) fL Plt Count 56 L (140-440) Thou/mm3 Neut % (Auto) 80 (37-80) % Lymph % (Auto) 13 (10-50) % [place] % (Auto) 6 (0-12) % Eos % (Auto) 0 (0-10) % Baso % (Auto) 0 (0-2.5) % Neut # (Auto) 6.7 (1.8-7.7) Thou/mm3 Lymph # (Auto) 1.1 (1.0-4.8) Thou/mm3 [place] # (Auto) 0.5 (0.0-0.8) Thou/mm3 Eos # (Auto) 0.0 (0.0-0.5) Thou/mm3 Baso # (Auto) 0.0 (0.0-0.2) Thou/mm3 Immature Gran # (Auto) 0.05 H (0.00-0.00) Thou/mm3 Absolute Nucleated RBC 0.00 (0.00-0.00) Thou/mm3 Immature Gran % 1 H (0-0) % Nucleated RBC % 0 (0) /100 WBC PT 11.9 (9.0-12.2) Seconds INR 1.1 (0.9-1.3) APTT 23.6 (22.0-36.0) Seconds Sodium 137 (136-145) mMol/L Potassium 2.6 L* (3.4-5.1) mMol/L Chloride 99 (98-107) mMol/L Carbon Dioxide 27.8 (20.0-31.0) mMol/L Anion Gap 10 (7-16) BUN 11 (9-23) mg/dL Creatinine 0.6 (0.6-1.3) mg/dL Estim Creat Clear Calc Not Performed. eGFR > 60 (60 - ) See Note BUN/Creatinine Ratio 18 (12-20) Ratio Glucose 90 (74-106) mg/dL Calculated Osmolality 273 L (275-295) Lactic Acid 2.6 H (0.4-2.0) mMol/L Calcium 8.0 L (8.3-10.6) mg/dL Corrected Calcium 9.2 (8.5-10.1) mg/dL Total Bilirubin 1.3 H (0.3-1.2) mg/dL AST 29 (0-34) U/L ALT 14 (10-49) U/L Alkaline Phosphatase 106 (46-116) U/L Troponin I < 0.020 (0.0-0.045) ng/mL C-Reactive Prot, Quant 1.7 H (0.0-0.9) mg/dL B-Natriuretic Peptide 155 H (0-100) pg/mL Total Protein 5.2 L (5.7-8.2) gm/dL Albumin 2.5 L (3.4-4.8) gm/dL Globulin 2.7 (2.3-3.5) gm/dL Albumin/Globulin Ratio 0.9 L (1.2-2.2) Procalcitonin 0.14 (0.0-0.49) ng/ml Ur Collection Type Clean Catch Urine Color Drk-Yellow A (Lt Yel-Yel) Urine Clarity Clear (Clear/Hazy) Urine pH 6.0 (5.0-7.0) Ur Specific [place] 1.022 (1.001-1.035) Urine Protein Trace (Neg - Trace) Urine Glucose (UA) Negative (Negative) Urine Ketones Negative (Negative) Urine Blood Negative (Negative) Urine Nitrite Negative (Negative) Urine Bilirubin 1+ A (Negative) Urine Urobilinogen (Auto) 8.0 (0.0-1.0) mg/dL Ur Leukocyte Esterase Negative (Negative) Urine RBC 2 (0-3) /hpf Urine WBC 4 (0-5) /hpf Ur Squamous Epith Cells < 1 (0-5) /hpf Urine Bacteria None (None) Ur Culture Indicated? Not Indicated Misc Test Result Platelets confirmed Discharge Plan Plan Patient Disposition: Admit Acute Care w/in Hospital Prescriptions/Referrals Prescriptions/Med Rec: No Action lidocaine HCl [Xylocaine] 10 mg/mL (1 %) solution 20 ml Infiltration X1 Qty: 20 0RF triamcinolone acetonide 40 mg/mL suspension 40 mg intra-articular .x2 Qty: 1 0RF lisinopril 40 mg tablet 40 mg PO QDAY ibuprofen 800 mg Tablet 800 mg PO TID PRN (Reason: Pain) pantoprazole [Protonix] 40 mg tablet,delayed release (DR/EC) 40 mg PO QDAY Qty: 20 0RF furosemide [Lasix] 20 mg tablet 20 mg PO QAM Qty: 4 0RF zinc oxide 22 % cream 1 applic topical .Twice daily Qty: 113 0RF Referrals: Rubén Triana MD [Primary Care Provider] - In 1 week Problem List Clinical Impression: Pneumonia, Altered mental status Patient/Caregiver Discharge Instructions Print Language: Khmer Stand Alone Forms: [facility] Award Info., Patient Portal Info Letter
[2024-08-19 14:21] VITALS: PULSE 85; RESP 18; O2SAT 96
[2024-08-19 15:04] LABS: Collection Type, Urine Clean Catch
[2024-08-19 15:06] VITALS: BP 113/87; PULSE 91; RESP 18; TEMP 37; O2SAT 96
[2024-08-19 15:06] LABS: Lactate (Lactic Acid) 2.6 mMol/L (0.4-2.0)
--- NOTE | 2024-08-19 15:09 | PC.NURSE ---
Pt comes from home [facility], family called stating pt's O2 low at 90-91% RA. Pt placed on 2L O@ and is able to maintain a sat of 95-96%. Family also told EMS that pt has been talking to himself for the last 2-3 days. GCS 15, vital other than O2 are WNL. Bs 77 per EMS, 84 with me. Pt not currently showing signs of distress, has NC in at 1.5L and on monitor.
[2024-08-19 15:14] LABS: Basophils % (Auto) 0 % (0-2.5); Eosinophils % (Auto) 0 % (0-10); Hematocrit 33.3 % (41.0-53.0); Hemoglobin 12.2 g/dL (13.5-16.0); Immature Granulocytes % (Auto) 1 % (0-0); Immature Granulocytes Auto 0.05 Thou/mm3 (0.00-0.00); Lymphocytes # (Auto) 1.1 Thou/mm3 (1.0-4.8); Lymphocytes % (Auto) 13 % (10-50); Mean Corpuscular HGB Conc 36.6 g/dl (31.0-37.0); Mean Corpuscular Hemoglobin 33.7 pg (25.0-35.0); Mean Corpuscular Volume 92 fL (80-100); Monocytes # (Auto) 0.5 Thou/mm3 (0.0-0.8); Monocytes % (Auto) 6 % (0-12); Neutrophils # (Auto) 6.7 Thou/mm3 (1.8-7.7); Neutrophils % (Auto) 80 % (37-80); Nucleated Red Blood Cell % 0 /100 WBC (0); RDW Standard Deviation 46.2 fL (35.1-43.9); Red Blood Count 3.62 Miln/mm3 (4.50-5.90); White Blood Count 8.3 Thou/mm3 (3.8-10.6)
[2024-08-19 15:16] LABS: Bilirubin,Urine 1+ (Negative); Blood,Urine Negative (Negative); Clarity,Urine Clear (Clear/Hazy); Color,Urine Drk-Yellow (Lt Yel-Yel); Culture Indicated,Urine Not Indicated; Glucose, Urine Negative (Negative); Ketones,Urine Negative (Negative); Leukocyte Esterase,Urine Negative (Negative); Nitrite,Urine Negative (Negative); Protein,Urine Trace (Neg - Trace); RBC,Urine 2 /hpf (0-3); Specific Gravity,Urine 1.022 (1.001-1.035); Squamous Epithelial Cell,Urine < 1 /hpf (0-5); WBC,Urine 4 /hpf (0-5)
[2024-08-19 15:21] LABS: Platelet Count 56 Thou/mm3 (140-440)
[2024-08-19 15:24] LABS: INR 1.1 (0.9-1.3); Partial Thromboplastin Time 23.6 Seconds (22.0-36.0); Prothrombin Time 11.9 Seconds (9.0-12.2)
[2024-08-19 15:34] LABS: Alanine Aminotransferase 14 U/L (10-49); Albumin, Serum 2.5 gm/dL (3.4-4.8); Albumin/Globulin Ratio 0.9 (1.2-2.2); Alkaline Phosphatase 106 U/L (46-116); Anion Gap 10 (7-16); Aspartate Amino Transferase 29 U/L (0-34); B-Type Natriuretic Peptide 155 pg/mL (0-100); BUN/Creatinine Ratio 18 Ratio (12-20); Bilirubin,Total 1.3 mg/dL (0.3-1.2); Blood Urea Nitrogen 11 mg/dL (9-23); C-Reactive Protein 1.7 mg/dL (0.0-0.9); Calcium (Corrected) 9.2 mg/dL (8.5-10.1); Carbon Dioxide 27.8 mMol/L (20.0-31.0); Chloride 99 mMol/L (98-107); Creatinine (Component) 0.6 mg/dL (0.6-1.3); Globulin 2.7 gm/dL (2.3-3.5); Glucose 90 mg/dL (74-106); Osmolality,Calculated 273 (275-295); Procalcitonin 0.14 ng/ml (0.0-0.49); Sodium 137 mMol/L (136-145); Total Protein 5.2 gm/dL (5.7-8.2); Troponin I < 0.020 ng/mL (0.0-0.045); eGFR > 60 See Note
[2024-08-19 15:37] LABS: Potassium 2.6 mMol/L (3.4-5.1)
[2024-08-19 15:44] LABS: Slide Review Platelets confirmed
[2024-08-19] MEDS: cefTRIAXone/D5w 1gm IV premix 1 GM/50 ML BAG IV (17:17)
[2024-08-19 18:01] LABS: Reflex Lactate? Y
--- NOTE | 2024-08-19 18:11 | PD.RESHP ---
Documentation for date of: 08/19/24 HPI History of Present Illness History of present illness: 78 y/o male patient with significant medical history for hypertension, GERD, severe osteoarthritis of bilateral knees and current smoker was brought to ED from home for symptoms of altered mental status and hypoxia (in lower 90s when checked at home). Patient is accompanied by daughter who provides further information. Patient was witnessed to have altered mental status last night which has progressed. Per daughter, patient was admitted at [facility] in March 2020 for for C. difficile, COVID and influenza B. Since then patient has declined and mobility. At baseline patient is AO x 3 but for the last he has become immobile. No symptoms of fever, chills, nausea, vomiting, chest pain/chest pressure or other associate symptoms. Patient has been endorsing intermittent nonproductive cough for the last few week per daughter. ED vitals were unremarkable, labs were significant for WBC 8.3, Hgb 12.2, PLT 56 (was 300K in May 2024) potassium 2.6, lactic acid 2.6, T. bili 1.3, BNP 155, CRP 1.7. Urinalysis was negative for UTI. Head CT was negative for acute hemorrhage or midline shift, chest x-ray reading indicated: Diffuse left-sided infiltrate. Possible bilateral pleural effusions. Patient will be admitted for altered mental status and pneumonia. 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[place], [id number] current smoker, denies alcohol use or other illicit drugs Allergies: Aspirin = upset stomach CODE STATUS: DNR Review of Systems Review of Systems Systems Reviewed: All systems reviewed, normal except as documented Exam Vital Signs Temp Pulse Resp BP Pulse Ox O2 Del Method O2 Flow Rate 98.6 F 91 18 113/87 H 96 Nasal Cannula 1.5 08/19/24 15:06 08/19/24 15:06 08/19/24 15:06 08/19/24 15:06 08/19/24 15:06 08/19/24 15:06 08/19/24 15:06 Narrative Exam Constitutional: Frail looking elderly, in no acute distress, lying in bed, hard of hearing HEENT: NCAT, EOMI, reactive round pupils b/l, patent nares b/l, moist mucous membranes Lung: Distant breath sounds on L side, no wheezing, no rhonchi Heart: Regular S1S2, no murmurs, gallops, or rubs Abdomen: Soft, non-distended, non-tender, bowel sounds present throughout Extremities: No cyanosis, clubbing, edema of LLE compared to right Neurologic: AOx1, unable to perform the rest due to mentation Skin: Warm, dry, no lesions or rashes noted Results: Labs 08/22/24 08:20 08/22/24 08:20 Labs: Short CBC 08/19/24 Range/Units 14:59 WBC 8.3 (3.8-10.6) Thou/mm3 Hgb 12.2 L (13.5-16.0) g/dL Hct 33.3 L (41.0-53.0) % Plt Count 56 L (140-440) Thou/mm3 BMP 08/19/24 14:59 Sodium 137 Potassium 2.6 L* Chloride 99 Carbon Dioxide 27.8 BUN 11 Creatinine 0.6 Glucose 90 Calcium 8.0 L Cardiac Enzymes 08/19/24 Range/Units 14:59 Troponin I < 0.020 (0.0-0.045) ng/mL Liver Function 08/19/24 Range/Units 14:59 Total Bilirubin 1.3 H (0.3-1.2) mg/dL AST 29 (0-34) U/L ALT 14 (10-49) U/L Alkaline Phosphatase 106 (46-116) U/L Albumin 2.5 L (3.4-4.8) gm/dL Urine 08/19/24 Range/Units 14:50 Urine Color Drk-Yellow A (Lt Yel-Yel) Urine Clarity Clear (Clear/Hazy) Urine pH 6.0 (5.0-7.0) Ur Specific [place] 1.022 (1.001-1.035) Urine Protein Trace (Neg - Trace) Urine Glucose (UA) Negative (Negative) Quality Measures Quality Measures none Advance care planning discussed with:: child Medications Home Medications and Allergies Home Medications ?Medication ?Instructions ?Recorded ?Confirmed ?Type ibuprofen 800 mg tablet 800 mg PO TID PRN Pain 09/25/20 08/19/24 History lisinopril 40 mg tablet 40 mg PO QDAY 03/05/23 08/19/24 History albuterol sulfate 90 mcg/actuation 2 puff inhalation Q4H PRN 08/19/24 08/19/24 History aerosol inhaler shortness of breath or wheezing metoclopramide HCl 10 mg tablet 10 mg PO Q6H PRN nausea and 08/19/24 08/19/24 History vomiting ondansetron HCl 4 mg tablet 4 mg PO Q6H PRN nausea and vomiting 08/19/24 08/19/24 History Allergies Allergy/AdvReac Type Severity Reaction Status Date / Time aspirin Allergy Intermediate UPSET Verified 08/19/24 20:56 STOMACH Visit Medications Acetaminophen (Acetaminophen 325 Mg Tablet) 650 mg PO Q6H PRN PRN Reason: Fever >101.5 Stop: 09/18/24 17:49 Albuterol/Ipratropium (Albuterol/Ipratropium (Duoneb) Rt Ol 3 Ml Nebu) 3 ml INH Q6HRRT TEE Stop: 09/18/24 18:59 Docusate Sodium (Docusate Sod 100 Mg Capsule) 100 mg PO QDAY PRN; Protocol PRN Reason: CONSTIPATION Stop: 09/18/24 17:54 Heparin Sodium (Porcine) (Heparin Sod Inj 5000 Unit/Ml Vial) 5,000 unit SC Q8HR TEE Stop: 09/02/24 21:59 Sodium Chloride (Ns) 1,000 mls @ 100 mls/hr IV .Q10H TEE Stop: 09/18/24 17:59 Ceftriaxone Sodium/Dextrose (Rocephin/D5w 2gm) 2 gm in 50 mls @ 100 mls/hr IV QDAY@1400 TEE Stop: 08/27/24 13:59 Azithromycin 500 mg/ Sodium (Chloride) 250 mls @ 250 mls/hr IV QDAY@1400 TEE Stop: 08/27/24 13:59 Metoclopramide HCl (Metoclopramide Inj 5 Mg/Ml Vial 2 Ml) 10 mg IVP Q6H PRN; Protocol PRN Reason: NAUSEA OR VOMITING Stop: 09/18/24 17:49 Pantoprazole Sodium (Pantoprazole Inj 40 Mg Vial) 40 mg IVP QDAY TEE Stop: 09/19/24 08:59 Potassium Chloride (Potassium Chloride 10% 20 Meq/15 Ml Udc) 40 meq PO X1 ONE Stop: 08/19/24 18:07 Discontinued Medications Ceftriaxone Sodium/Dextrose (Rocephin/D5w 1gm Iv Premix) 1 gm in 50 mls @ 100 mls/hr IV X1 ONE Stop: 08/19/24 16:50 Last Admin: 08/19/24 17:17 Dose: 100 mls/hr Azithromycin 500 mg/ Sodium (Chloride) 250 mls @ 250 mls/hr IV X1 ONE Stop: 08/19/24 17:20 Potassium Chloride (Kcl Ivpb) 10 meq in 100 mls @ 100 mls/hr IV X1 ONE Stop: 08/19/24 17:21 Lactated Ringer's (Lactated Ringers) 1,000 mls @ 999 mls/hr IV .Q1H1M ONE Stop: 08/19/24 17:37 Azithromycin 500 mg/ Sodium (Chloride) 250 mls @ 250 mls/hr IV QDAY@1400 TEE Stop: 08/27/24 13:59 Potassium Chloride (Potassium Chloride 20 Meq Tabcr) 40 meq PO X1 ONE Stop: 08/19/24 16:22 Potassium Chloride (Potassium Chloride 10% 20 Meq/15 Ml Udc) 40 meq PO X1 ONE Stop: 08/19/24 17:34 Sodium Chloride (Sodium Chloride Rt 10% 15 Ml Nebu) 5 ml INH X1 ONE Stop: 08/19/24 17:56 Assessment & Plan Plan 78 y/o male patient with significant medical history for hypertension, GERD, severe osteoarthritis of bilateral knees and current smoker was brought to ED from home for symptoms of altered mental status and hypoxia. Patient admitted for AMS and PNA. #Acute encephalopathy likely due to #Pneumonia #Possible aspiration Patient with AMS for x1 day Patient also endorsing intermittent cough CXR showed diffuse left-sided infiltrate Plan: -Neurocheck Q4H -IV abx Azithro and Rocephin -Blood culture -DuoNebs Q6H -Tylenol for fever -Aspiration precaution #DVT Patient immobile for last few months On physical exam LLE edematous compared to right Platelets decreased from 300K to 59K since May 2024 Wells score of 4.5 points, 16.2% chance of PE Plan: -US of LE -Heparin prophylaxis -Follow up CBC #Thrombocytopenia Patient's plt level has decreased over last x2 months from 300K to 59K Occult blood negative No sign of active bleeding PT and PTT normal Likely TTP vs ITP, less likely HUS Plan: -Monitor daily CBC -Blood smear -Transfuse plts if < 20K #Hx of HTN #Hx of GERD Plan: -Currently BP WNL -Consider restarting home med after reconciliation -PPI prophylaxis Health Maintenance Dispo: Patient admitted for AMS secondary to PNA Diet: Regular after passing swallow eval DVT/PPx: Heparin GI ppx: Protonix Lines: PIV Code Status: DNR This patient care was discussed with my attending Dr. Javier Carlos MD PGY-2 Disclaimer: Minor errors in stoker installation mechanic may be present since this note was dictated by speech recognition software. Attending Provider Attestation/Addendum Patient seen and examined at bedside with resident. Agree with assessment and plan as dictated above. In short patient is a 78-year-old male with history of hypertension, GERD, recent C. difficile infection, failure to thrive who presented to the ED with worsening fatigue, somnolence, weight loss, unilateral leg swelling. Patient found to be hypoxic when picked up by EMS. In the ER, labs mostly normal but chest x-ray showed left-sided pneumonia. Ultrasound obtained showed DVT and platelet count in the 60s which was normal as of 3 months ago. Will admit patient for further management of pneumonia, altered mental status and weakness, DVT management. William Herrera MD
[2024-08-19 18:26] VITALS: BP 111/74; PULSE 85; RESP 17; TEMP 36.9; O2SAT 100
[2024-08-19 18:30] LABS: Lactic Acid, 3 HR 2.5 mMol/L (0.4-2.0)
--- NOTE | 2024-08-19 18:35 | XR_ITS ---
Examination: Venous duplex lower extremity sonogram, bilateral. Date and time of exam: August 19, 2024 at 0958 hrs. Indications: Redness swelling and pain involving the legs this week Technique: Multiple sonographic images of the deep venous system have been obtained. B-mode/2-D grayscale imaging of vascular structures and Doppler spectral analysis (waveforms) and color performed Both legs are examined. Findings: Normal right deep venous system Extensive occlusive deep vein thrombus involving the left superficial femoral, popliteal veins. Impression: Extensive occlusive deep vein thrombus involving the left superficial femoral and popliteal veins
[2024-08-19] MEDS: ALBUTEROL/IPRATROPIUM (Duoneb) RT SOL 3 ML NEBU INH (18:37)
[2024-08-19] MEDS: SODIUM CHLORIDE RT 10% 15 ML NEBU 5 ML INH (18:38)
[2024-08-19 18:40] VITALS: PULSE 104; PULSE 88; RESP 20; O2SAT 100; O2SAT 94
[2024-08-19 18:52] VITALS: PULSE 92; RESP 20; O2SAT 100
[2024-08-19] MEDS: POTASSIUM CHLORIDE 10% 20 MEQ/15 ML UDC 40 MEQ PO (19:53)
[2024-08-19] MEDS: RINGERS LACTATED 1000 ML 1,000 ML 999 ML IV (19:57)
[2024-08-19] MEDS: POTASSIUM CHL 10 mEq IVPB 10 MEQ/100 ML BAG 100 MEQ IV ×3 (19:59→23:59)
[2024-08-19] MEDS: AZITHROMYCIN INJ 500 MG in SODIUM CHLORIDE 0.9% 250 ML 250 ML 250 MG IV (19:59)
[2024-08-19 23:24] LABS: Basophils % (Auto) 0 % (0-2.5); Eosinophils % (Auto) 0 % (0-10); Hematocrit 29.7 % (41.0-53.0); Hemoglobin 10.9 g/dL (13.5-16.0); Immature Granulocytes % (Auto) 1 % (0-0); Immature Granulocytes Auto 0.04 Thou/mm3 (0.00-0.00); Lymphocytes % (Auto) 13 % (10-50); Mean Corpuscular HGB Conc 36.7 g/dl (31.0-37.0); Mean Corpuscular Volume 93 fL (80-100); Monocytes # (Auto) 0.5 Thou/mm3 (0.0-0.8); Monocytes % (Auto) 6 % (0-12); Neutrophils % (Auto) 80 % (37-80); Nucleated Red Blood Cell % 0 /100 WBC (0); RDW Standard Deviation 45.9 fL (35.1-43.9); Red Blood Count 3.21 Miln/mm3 (4.50-5.90); White Blood Count 7.5 Thou/mm3 (3.8-10.6)
[2024-08-19 23:28] LABS: Platelet Count 49 Thou/mm3 (140-440)
[2024-08-20] VITALS (10 sets, daily range): BP systolic 95–106; BP diastolic 59–75; PULSE 78–89; RESP 16–22; TEMP 35.5–36.6; O2SAT 94–100; BMI 29.2
[2024-08-20] MEDS: SODIUM CHLORIDE 0.9% 1000 ML 1,000 ML 100 ML IV ×2 (00:03→15:02)
[2024-08-20] MEDS: ALBUTEROL/IPRATROPIUM (Duoneb) RT SOL 3 ML NEBU INH ×4 (00:21→19:24)
[2024-08-20] MEDS: POTASSIUM CHL 10 mEq IVPB 10 MEQ/100 ML BAG 100 MEQ IV ×5 (00:40→21:38)
[2024-08-20 00:56] LABS: Path Review Blood Smear Sent to Pathologist; Slide Review Platelets confirmed
[2024-08-20 06:12] LABS: OBS Card Lot # 23001; OBS Developer Lot # 23002; OBS Performed By fabic; OBS QC OK? Yes; Occult Blood, Stool Negative (Negative)
--- NOTE | 2024-08-20 07:07 | XR_ITS ---
Examination: CTA chest with intravenous contrast 2-D reconstructions 3-D reconstructions, vascular Date and time of exam: August 21, 1999 2510 0 9:00 PM Indications: Onset chest pain shortness of breath today CTDI: vol (mGy) 13.1 DLP: (mGycm) 498 Technique: Multiple axial sections of the thorax have been obtained. 3 mm slice thickness, from below the hemidiaphragms to above the apices of the lungs. Mediastinal and lung density settings have been obtained. 2-D sagittal and coronal reconstructions. 3-D angiographic renderings, 3-D volume renderings, 3D post processing, vascular maximum intensity projections obtained. Contrast administered is 100 cc Isovue-370 intravenous. Low dose protocols were performed. One or more of the following dose reduction techniques were used; automated exposure control, adjustment of the mA and/or KV according to patient size, use of iterative reconstruction technique. Findings: No thoracic aortic aneurysmal dilatation Multiple pulmonary artery filling defects in right pulmonary artery branches Infarction of the right lower lobe Moderate enlargement cardiac contour with prominent vascular congestion Moderate left pleural disease Probable septal pulmonary edema No pathologic mediastinal lymphadenopathy No focal liver or splenic lesions Cirrhosis, liver irregular in contour with mild ascites Absent gallbladder Impression: Multiple pulmonary artery emboli right pulmonary artery branches Mild heart failure Pulmonary infarction right base Cirrhosis, mild ascites
[2024-08-20] MEDS: PANTOPRAZOLE INJ 40 MG VIAL IVP (09:36)
[2024-08-20 09:44] LABS: Basophils % (Auto) 0 % (0-2.5); Eosinophils # (Auto) 0.1 Thou/mm3 (0.0-0.5); Eosinophils % (Auto) 2 % (0-10); Hematocrit 25.2 % (41.0-53.0); Hemoglobin 9.6 g/dL (13.5-16.0); Immature Granulocytes % (Auto) 1 % (0-0); Immature Granulocytes Auto 0.04 Thou/mm3 (0.00-0.00); Lymphocytes % (Auto) 18 % (10-50); Mean Corpuscular HGB Conc 38.1 g/dl (31.0-37.0); Mean Corpuscular Volume 89 fL (80-100); Monocytes # (Auto) 0.3 Thou/mm3 (0.0-0.8); Monocytes % (Auto) 6 % (0-12); Neutrophils # (Auto) 4.2 Thou/mm3 (1.8-7.7); Neutrophils % (Auto) 74 % (37-80); Nucleated Red Blood Cell # 0.02 Thou/mm3 (0.00-0.00); Nucleated Red Blood Cell % 0 /100 WBC (0); RDW Standard Deviation 43.9 fL (35.1-43.9); Red Blood Count 2.82 Miln/mm3 (4.50-5.90); White Blood Count 5.7 Thou/mm3 (3.8-10.6)
[2024-08-20 09:51] LABS: Platelet Count 29 Thou/mm3 (140-440)
[2024-08-20 10:01] LABS: Alanine Aminotransferase 10 U/L (10-49); Albumin, Serum 1.9 gm/dL (3.4-4.8); Albumin/Globulin Ratio 0.9 (1.2-2.2); Alkaline Phosphatase 81 U/L (46-116); Anion Gap 7 (7-16); Aspartate Amino Transferase 20 U/L (0-34); BUN/Creatinine Ratio 28 Ratio (12-20); Bilirubin,Total 0.7 mg/dL (0.3-1.2); Blood Urea Nitrogen 11 mg/dL (9-23); Calcium 7.3 mg/dL (8.3-10.6); Carbon Dioxide 26.8 mMol/L (20.0-31.0); Chloride 104 mMol/L (98-107); Creatinine (Component) 0.4 mg/dL (0.6-1.3); Globulin 2.2 gm/dL (2.3-3.5); Glucose 87 mg/dL (74-106); Magnesium 1.1 mg/dL (1.6-2.6); Osmolality,Calculated 274 (275-295); Phosphorous 2.7 mg/dL (2.4-5.1); Potassium 2.9 mMol/L (3.4-5.1); Sodium 138 mMol/L (136-145); Total Protein 4.1 gm/dL (5.7-8.2); eGFR > 60 See Note
[2024-08-20] MEDS: Magnesium Sulfate 4 GM Ivpb 4 GM/50 ML BAG IV (10:59)
[2024-08-20 11:03] LABS: Slide Review Platelets confirmed
[2024-08-20 11:10] LABS: Immature Reticulocyte Fraction 0.8 % (2.3-13.4); Reticulocyte % (Auto) 0.3 % (0.5-1.5); Reticulocyte Absolute Auto 8.5 Biln/L (25.0-75.0); Reticulocyte Hgb Content 40.2 pg (28.0-35.0)
[2024-08-20 11:15] LABS: Fibrinogen 132 mg/dL (175-375)
[2024-08-20 11:20] LABS: LDH (Lactate Dehydrogenase) 112 U/L (120-246)
--- NOTE | 2024-08-20 12:26 | ESPR_ITS ---
Documentation for date of: 08/20/24 Subjective Subjective Interval history: Patient examined at bedside. Venous doppler positive for DVT in left superficial femoral and popliteal veins. Hb has downtrended to 10.9, platelets downtrended to 29 today. Will hold off on starting heparin drip for DVT and consider starting fondaparinux. Start dexamethasone empirically for ITP. Further workup is pending including--LDH, haptoglobin, fibrinogen, and reticulocytes. CT angio chest pending to rule out PE. Continue antibiotics pneumonia, blood cultures are pending. Exam Vital Signs Temp Pulse Resp BP Pulse Ox O2 Del Method O2 Flow Rate 97.3 F 84 19 97/59 L 100 Room Air 0.5 08/20/24 08:00 08/20/24 08:00 08/20/24 08:00 08/20/24 08:00 08/20/24 08:00 08/20/24 08:00 08/19/24 18:52 Narrative Exam Constitutional: Frail looking elderly, in no acute distress, lying in bed, hard of hearing HEENT: NCAT, EOMI, reactive round pupils b/l, patent nares b/l, moist mucous membranes Lung: Distant breath sounds on L side, no wheezing, no rhonchi Heart: Regular S1S2, no murmurs, gallops, or rubs Abdomen: Soft, non-distended, non-tender, bowel sounds present throughout Extremities: No cyanosis, clubbing, edema of LLE compared to right/cold Neurologic: AOx1, unable to perform the rest due to mentation Skin: Warm, dry, purpural noticed throughout body Objective Labs 08/20/24 09:25 08/20/24 09:25 Labs: Laboratory Results - last 24 hr 08/19/24 08/19/24 08/19/24 14:50 14:59 18:19 WBC 8.3 RBC 3.62 L Hgb 12.2 L Hct 33.3 L MCV 92 MCH 33.7 MCHC 36.6 RDW Std Deviation 46.2 H Plt Count 56 L Neut % (Auto) 80 Lymph % (Auto) 13 [place] % (Auto) 6 Eos % (Auto) 0 Baso % (Auto) 0 Neut # (Auto) 6.7 Lymph # (Auto) 1.1 [place] # (Auto) 0.5 Eos # (Auto) 0.0 Baso # (Auto) 0.0 Immature Gran # (Auto) 0.05 H Absolute Nucleated RBC 0.00 Immature Gran % 1 H Nucleated RBC % 0 Smear Path Review Retic Count (auto) Absolute Retic Immature Retic Fraction Retic Hgb Content CHr PT 11.9 INR 1.1 APTT 23.6 Fibrinogen Sodium 137 Potassium 2.6 L* Chloride 99 Carbon Dioxide 27.8 Anion Gap 10 BUN 11 Creatinine 0.6 Estim Creat Clear Calc Not Performed. eGFR > 60 BUN/Creatinine Ratio 18 Glucose 90 Calculated Osmolality 273 L Lactic Acid 2.6 H 2.5 H Calcium 8.0 L Corrected Calcium 9.2 Phosphorus Magnesium Total Bilirubin 1.3 H AST 29 ALT 14 Alkaline Phosphatase 106 Lactate Dehydrogenase Troponin I < 0.020 C-Reactive Prot, Quant 1.7 H B-Natriuretic Peptide 155 H Total Protein 5.2 L Albumin 2.5 L Globulin 2.7 Albumin/Globulin Ratio 0.9 L Procalcitonin 0.14 Ur Collection Type Clean Catch Urine Color Drk-Yellow A Urine Clarity Clear Urine pH 6.0 Ur Specific [place] 1.022 Urine Protein Trace Urine Glucose (UA) Negative Urine Ketones Negative Urine Blood Negative Urine Nitrite Negative Urine Bilirubin 1+ A Urine Urobilinogen (Auto) 8.0 Ur Leukocyte Esterase Negative Urine RBC 2 Urine WBC 4 Ur Squamous Epith Cells < 1 Urine Bacteria None Ur Culture Indicated? Not Indicated Stool Occult Blood Misc Test Result Platelets confirmed 08/19/24 08/20/24 08/20/24 22:52 02:19 09:25 WBC 7.5 5.7 RBC 3.21 L 2.82 L Hgb 10.9 L 9.6 L Hct 29.7 L 25.2 L MCV 93 89 MCH 34.0 34.0 MCHC 36.7 38.1 H RDW Std Deviation 45.9 H 43.9 Plt Count 49 L 29 L* D Neut % (Auto) 80 74 Lymph % (Auto) 13 18 [place] % (Auto) 6 6 Eos % (Auto) 0 2 Baso % (Auto) 0 0 Neut # (Auto) 6.0 4.2 Lymph # (Auto) 1.[address] [place] # (Auto) 0.5 0.3 Eos # (Auto) 0.0 0.1 Baso # (Auto) 0.0 0.0 Immature Gran # (Auto) 0.04 H 0.04 H Absolute Nucleated RBC 0.00 0.02 H Immature Gran % 1 H 1 H Nucleated RBC % 0 0 Smear Path Review Sent to Pathologist Not Performed. Retic Count (auto) 0.3 L Absolute Retic 8.5 L Immature Retic Fraction 0.8 L Retic Hgb Content CHr 40.2 H PT INR APTT Fibrinogen 132 L Sodium 138 Potassium 2.9 L Chloride 104 Carbon Dioxide 26.8 Anion Gap 7 BUN 11 Creatinine 0.4 L Estim Creat Clear Calc 166.0 eGFR > 60 BUN/Creatinine Ratio 28 H Glucose 87 Calculated Osmolality 274 L Lactic Acid Calcium 7.3 L Corrected Calcium 9.0 Phosphorus 2.7 Magnesium 1.1 L Total Bilirubin 0.7 D AST 20 ALT 10 Alkaline Phosphatase 81 D Lactate Dehydrogenase 112 L Troponin I C-Reactive Prot, Quant B-Natriuretic Peptide Total Protein 4.1 L Albumin 1.9 L D Globulin 2.2 L Albumin/Globulin Ratio 0.9 L Procalcitonin Ur Collection Type Urine Color Urine Clarity Urine pH Ur Specific [place] Urine Protein Urine Glucose (UA) Urine Ketones Urine Blood Urine Nitrite Urine Bilirubin Urine Urobilinogen (Auto) Ur Leukocyte Esterase Urine RBC Urine WBC Ur Squamous Epith Cells Urine Bacteria Ur Culture Indicated? Stool Occult Blood Negative Misc Test Result Platelets confirmed Platelets confirmed Quality Measures Quality Measures none Advance care planning discussed with:: other Assessment & Plan Assessment Current Active Medications: Generic Name Dose Route Start Last Admin Trade Name Freq PRN Reason Stop Dose Admin Acetaminophen 650 mg 08/19/24 17:50 Acetaminophen 325 Mg Tablet PO 09/18/24 17:49 Q6H PRN Fever >101.5 Albuterol/Ipratropium 3 ml 08/19/24 19:00 08/20/24 07:07 Albuterol/Ipratropium (Duoneb) Rt Lo 3 Ml Nebu INH 09/18/24 18:59 3 ml Q6HRRT TEE Administration Docusate Sodium 100 mg 08/19/24 17:55 Docusate Sod 100 Mg Capsule PO 09/18/24 17:54 QDAY PRN CONSTIPATION Protocol Sodium Chloride 1,000 mls @ 100 mls/hr 08/19/24 18:00 08/20/24 00:03 Ns IV 09/18/24 17:59 100 mls/hr .Q10H TEE Administration Ceftriaxone Sodium/Dextrose 2 gm in 50 mls @ 100 mls/hr 08/20/24 14:00 Rocephin/D5w 2gm IV 08/27/24 13:59 QDAY@1400 TEE Azithromycin 500 mg/ Sodium 250 mls @ 250 mls/hr 08/20/24 14:00 Chloride IV 08/27/24 13:59 QDAY@1400 TEE Magnesium Sulfate 4 gm in 50 mls @ 12.5 mls/hr 08/20/24 10:31 08/20/24 10:59 Magnesium Sulfate Ivpb IV 08/20/24 14:30 12.5 mls/hr X1 ONE Administration Metoclopramide HCl 10 mg 08/19/24 17:50 Metoclopramide Inj 5 Mg/Ml Vial 2 Ml IVP 09/18/24 17:49 Q6H PRN NAUSEA OR VOMITING Protocol Pantoprazole Sodium 40 mg 08/20/24 09:00 08/20/24 09:36 Pantoprazole Inj 40 Mg Vial IVP 09/19/24 08:59 40 mg QDAY TEE Administration Pharmacy Consult 1 each 08/19/24 21:07 Pharmacy To Consult Pneumovacc XX 09/18/24 21:06 PRN PRN CONSULT Plan Matthew Perez is 78 y/o male patient with significant medical history for hypertension, GERD, severe osteoarthritis of bilateral knees and current smoker was brought to ED from home for symptoms of altered mental status and hypoxia. Patient admitted for AMS and PNA. #Acute encephalopathy likely due to #Pneumonia #Possible aspiration Patient with AMS for x1 day Patient also endorsing intermittent cough CXR showed diffuse left-sided infiltrate Plan: -Neurocheck Q4H -IV abx Azithro and Rocephin -Blood culture pending -DuoNebs Q6H -Tylenol for fever -Aspiration precaution #DVT #Thrombocytopenia Patient immobile for last few months On physical exam LLE edematous compared to right Platelets decreased from 300K to 59K since May 2024 Wells score of 4.5 points, 16.2% chance of PE Venous doppler positive for DVT in left superficial femoral and popliteal veins. Plan: -platelets further dropped from 56-->49-->29 -CT angio chest is pending -hold heparin -LDH, smear, haptoglobin, retic count pending -start dexamethasone 1 g daily for empiric treatment for ITP -start fondaparinux 7.5mgSC daily for DVT treatment -follow up with repeat PTPTT -Follow up CBC #Hx of HTN #Hx of GERD Plan: -Currently BP WNL -Consider restarting home med after reconciliation -PPI prophylaxis Health Maintenance Dispo: abx, DVT tx Diet: dysphagia after passing swallow eval DVT/PPx: no heparin, fondparanux 7.5mg daily GI ppx: Protonix Lines: PIV Code Status: DNR The patient's management plan was discussed with my attending physician Dr. Herrera. Kellen Cruz, PGY-1
[2024-08-20] MEDS: cefTRIAXone/D5w 2gm 2 GM/50 ML BAG IV (14:36)
[2024-08-20] MEDS: AZITHROMYCIN INJ 500 MG in SODIUM CHLORIDE 0.9% 250 ML 250 ML 250 MG IV (14:37)
[2024-08-20] MEDS: MethylPREDNISolone. 1,000 MG in SODIUM CHLORIDE 0.9% 250 ML 250 ML 266 MG IV (14:37)
[2024-08-20] MEDS: FONDAPARINUX 2.5 MG/0.5 ML 7.5 MG SC (15:00)
[2024-08-20 15:08] LABS: INR 1.1 (0.9-1.3); Partial Thromboplastin Time 29.6 Seconds (22.0-36.0)
--- NOTE | 2024-08-20 19:00 | PC.NURSE ---
Report received, pt resting family at side, currently running IV potassium 10meq bag one of eight total ordered. Pt has CTA ordered in need of min 20g to AC, unable to obtain access today.
--- NOTE | 2024-08-20 20:04 | PC.NURSE ---
Attempted to start IV to pt, unable to. Contacted charge nurse Lulú.
--- NOTE | 2024-08-20 21:20 | PC.NURSE ---
Tori MAYO able to start 20g to right upper arm via ultrasound, will contact CT for CTA.
--- NOTE | 2024-08-20 22:00 | PC.NURSE ---
Pt taken to CT
--- NOTE | 2024-08-20 22:20 | PC.NURSE ---
Pt back from CT 22g to right wrist leaking not functioning removed, connected pt back to IVF and potassium infusion to 20g to Right upper arm.
[2024-08-21] VITALS (12 sets, daily range): BP systolic 110–128; BP diastolic 82–91; PULSE 80–112; RESP 18–24; TEMP 35.2–36.9; O2SAT 93–100
[2024-08-21] MEDS: ALBUTEROL/IPRATROPIUM (Duoneb) RT SOL 3 ML NEBU INH ×4 (00:11→18:59)
[2024-08-21] MEDS: POTASSIUM CHL 10 mEq IVPB 10 MEQ/100 ML BAG 100 MEQ IV ×5 (00:15→08:03)
--- NOTE | 2024-08-21 00:16 | PRELIM_ITS ---
CT angiogram of the chest with intravenous contrast dated August 20, 2024 2209 hours Clinical History: Rule out pulmonary thromboembolism. Technique:Helical axial sections with sagittal and coronal reformats of the chest were obtained with intravenous contrast. Iterative reconstruction technique was employed to reduce patient radiation exposure. 3D and MIP reconstructed images were also provided. Comparison: No prior study is available for comparison. Findings: There are filling defects in the right main pulmonary artery and its divisions of the right middle and lower lobes. Extension is seen to segmental and subsegmental branches of the right lower lobe pulmonary artery (axial images 91- 112/231). No evidence of right heart strain. There is a cavitary segment of consolidation in the corresponding lung segment (axial images 98-126/231), which may represent a pulmonary infarct. There is dependent consolidation in the left lower lobe. There are ground-glass opacities in the left lung, likely due to pulmonary edema. There is small right and moderate left pleural effusions. The mediastinum demonstrates no evidence of mass or lymphadenopathy. The thoracic aorta is unremarkable. There is no pericardial effusion. No evidence of pneumothorax. Degenerative changes are identified in the spine. There is ascites. Impression: 1. Acute pulmonary thromboembolism involving the right pulmonary artery and its divisions as described above. No right heart strain. 2. Findings suggestive of pulmonary infarct in the right lower lobe. Recommend follow-up. 3. Ground-glass opacities in the left lung, likely due to pulmonary edema. 4. Small right and moderate left pleural effusions. 5. Ascites. Report Electronically Signed By: Jong Hough 08/21/2024 12:16:12 AM [EST]
--- NOTE | 2024-08-21 00:18 | PC.NURSE ---
Recieved call from [facility] pt CTA results positive for PE, provided with contact number for physicians, report to be sent.
--- NOTE | 2024-08-21 00:28 | PC.NURSE ---
Attempt to call MD regarding CTA result no answer will attempt again.
--- NOTE | 2024-08-21 00:40 | PC.NURSE ---
Called spoke with Dr. Hartley regarding CTA results positive for PE, informed MD of SC medication given earlier during day and ordered QDAY for DVT, to evaluate chart.
--- NOTE | 2024-08-21 01:00 | PC.NURSE ---
Pt confusion increasing, unaware of surroundings and will not follow simple command, HR change from 80's to 100-120 AFIB, rapid response called for change in mentation.
--- NOTE | 2024-08-21 01:05 | XR_ITS ---
Examination: AP chest single view Technique one AP portable semiupright chest single view Exam date and time: August 21, 2024 0114 hrs. Comparison August 2024 Indications: Rapid response respiratory distress today. Findings: Significant left lung pneumonia which has improved with better aeration left lung compared to August 19, 2024 Moderate left pleural disease Mild enlargement cardiac contour with mild vascular congestion Impression: Improvement, less atelectasis and pneumonia left lung Persistent left pleural fluid
--- NOTE | 2024-08-21 01:11 | XR_ITS ---
Examination: CT brain head without contrast. 2-D sagittal coronal reconstructions Date and time of exam:August 21, 2024 0201 hrs. Indications: Onset altered mental status today CTDI: vol (mGy):47.9 DLP: (mGycm):1023 Technique: Multiple CT axial sections of the brain have been obtained, 5 mm slice thickness. Contrast has not been administered. 2-D sagittal, coronal reconstructions have been obtained Low dose protocols were performed. One or more of the following dose reduction techniques were used; automated exposure control, adjustment of the mA and/or KV according to patient size, use of iterative reconstruction technique. Findings: No significant ventricular enlargement. Intra-axial or extra-axial hemorrhage density is not seen. No mass effect or midline shift Basal cisterns are not remarkable. Fourth ventricle is midline. Cranial vault intact. Impression: Negative for acute hemorrhage, mass effect or midline shift Advise clinical correlation follow-up accordingly
--- NOTE | 2024-08-21 01:20 | PC.NURSE ---
End of rapid plan lab work, CXR, Head CT, cont to replace potassium and admin 4GM magnesium sulfate.
[2024-08-21 01:28] LABS: Base Excess 0 (-3-3); HCO3 24 mEq/L (20-26); Inspired Oxygen, FIO2 21 %; O2 Saturation 94 % (91-98); PCO2 34 mmHg (32.0-48.0); PO2 71 mmHg (83-108); pH, Arterial 7.45 (7.35-7.45)
--- NOTE | 2024-08-21 01:29 | PD.RESEVENT ---
Documentation for date of: 08/21/24 Event Note Event Note: At 1 AM rapid response was called to the room 376 due to patient being more somnolent than usual. Patient has a history of dementia and is AO x 1 on the baseline. Patient is hemodynamically stable, blood pressure 128/91, heart rate 108, irregular rhythm, saturating 98% on room air. Patient appears somnolent, eyes are open, speech is incomprehensible, does not follow commands, AAO x 0. Earlier CTA chest showed pulmonary embolism. Patient is receiving fondaparinux SC, methylprednisolone IV. Also ordered magnesium 4 g IV. CBC, CMP, ammonia, lactate, magnesium, phosphorus, ammonia levels were ordered. CT head without contrast was ordered. Plan of care discussed with attending Dr. López, PGY-[address] Hartley. Camille Kinsey MD, PGY 1.
[2024-08-21 01:30] LABS: Allen Test Performed/OK; Puncture Site Left Radial
--- NOTE | 2024-08-21 01:41 | PC.RT ---
PLANT MACHINIST called for altered mentation, HR108,Spo2 99% on RA, RR 24. RT ABG draw and dismissed @0122 by MARIA ESTHER Mcmanus.
[2024-08-21 01:44] LABS: Lactate (Lactic Acid) 2.9 mMol/L (0.4-2.0)
[2024-08-21 01:48] LABS: Basophils % (Auto) 0 % (0-2.5); Eosinophils % (Auto) 0 % (0-10); Hematocrit 31.4 % (41.0-53.0); Hemoglobin 11.5 g/dL (13.5-16.0); Immature Granulocytes % (Auto) 1 % (0-0); Immature Granulocytes Auto 0.03 Thou/mm3 (0.00-0.00); Lymphocytes # (Auto) 0.3 Thou/mm3 (1.0-4.8); Lymphocytes % (Auto) 4 % (10-50); Mean Corpuscular HGB Conc 36.6 g/dl (31.0-37.0); Mean Corpuscular Hemoglobin 33.3 pg (25.0-35.0); Mean Corpuscular Volume 91 fL (80-100); Monocytes # (Auto) 0.1 Thou/mm3 (0.0-0.8); Monocytes % (Auto) 1 % (0-12); Neutrophils # (Auto) 6.2 Thou/mm3 (1.8-7.7); Neutrophils % (Auto) 94 % (37-80); Nucleated Red Blood Cell % 0 /100 WBC (0); RDW Standard Deviation 45.5 fL (35.1-43.9); Red Blood Count 3.45 Miln/mm3 (4.50-5.90); White Blood Count 6.6 Thou/mm3 (3.8-10.6)
[2024-08-21 01:54] LABS: Platelet Count 62 Thou/mm3 (140-440)
--- NOTE | 2024-08-21 01:55 | PC.NURSE ---
Pt taken for head CT
[2024-08-21 02:12] LABS: Slide Review Platelets confirmed
[2024-08-21] MEDS: Magnesium Sulfate 4 GM Ivpb 4 GM/50 ML BAG IV (02:15)
[2024-08-21] MEDS: SODIUM CHLORIDE 0.9% 1000 ML 1,000 ML 100 ML IV ×2 (02:15→21:53)
[2024-08-21 02:17] LABS: Alanine Aminotransferase 16 U/L (10-49); Albumin, Serum 2.5 gm/dL (3.4-4.8); Albumin/Globulin Ratio 0.9 (1.2-2.2); Alkaline Phosphatase 100 U/L (46-116); Ammonia < 10 uMol/L (11-32); Anion Gap 12 (7-16); Aspartate Amino Transferase 23 U/L (0-34); BUN/Creatinine Ratio 23 Ratio (12-20); Bilirubin,Total 0.7 mg/dL (0.3-1.2); Blood Urea Nitrogen 14 mg/dL (9-23); Calcium 7.7 mg/dL (8.3-10.6); Calcium (Corrected) 8.9 mg/dL (8.5-10.1); Carbon Dioxide 24.4 mMol/L (20.0-31.0); Chloride 102 mMol/L (98-107); Creatinine (Component) 0.6 mg/dL (0.6-1.3); Estimated Creatinine Clearance 110.7 mL/min (>60); Globulin 2.7 gm/dL (2.3-3.5); Glucose 141 mg/dL (74-106); Magnesium 1.8 mg/dL (1.6-2.6); Osmolality,Calculated 278 (275-295); Phosphorous 2.9 mg/dL (2.4-5.1); Potassium 3.5 mMol/L (3.4-5.1); Sodium 138 mMol/L (136-145); Total Protein 5.2 gm/dL (5.7-8.2); eGFR > 60 See Note
--- NOTE | 2024-08-21 02:20 | PC.NURSE ---
Pt back from CT
--- NOTE | 2024-08-21 02:25 | PRELIM_ITS ---
Radiograph of the chest (single view). August 21, 2024 0108 hours Clinical history: Possible aspiration Comparison: X-ray of August 20, 2024. Findings: Cardiomegaly. No pneumothorax. Moderate left pleural effusion, previously large. Left basilar consolidation, improved compared to prior. The bony thorax is unremarkable. Impression: Left basal pneumonia, improved compared to prior. Left pleural effusion, previously large. Report Electronically Signed By: Christiano Jacobs 08/21/2024 2:25:33 AM [EST]
[2024-08-21] MEDS: SODIUM CHLORIDE 0.9% 500 ML 500 ML 999 ML IV (02:58)
--- NOTE | 2024-08-21 03:28 | PRELIM_ITS ---
CT scan of the head without intravenous contrast (axial sections with sagittal and coronal reformats) August 21, 2024 0201 hours Clinical history: Lethargy. Comparison: None. Findings: There is no evidence of intracranial hemorrhage, mass effect or midline shift. There are periventricular white matter hypodensities, compatible with chronic small vessel ischemia. There is severe volume loss. The calvarium is unremarkable. The mastoid air cells and the visualized paranasal sinuses are clear. Impression: No evidence of intracranial hemorrhage, mass effect or midline shift. Periventricular chronic small vessel ischemia and volume loss. Aspect score 10. Report Electronically Signed By: Christiano Jacobs 08/21/2024 3:28:15 AM [EST]
[2024-08-21 04:07] LABS: Thyroid Stimulating Hormone 1.32 uIU/mL (0.55-4.78)
[2024-08-21 04:40] LABS: Reflex Lactate? Y
[2024-08-21 05:30] LABS: Lactate (Lactic Acid) 2.6 mMol/L (0.4-2.0)
[2024-08-21 05:38] LABS: Basophils % (Auto) 0 % (0-2.5); Eosinophils % (Auto) 0 % (0-10); Hematocrit 30.5 % (41.0-53.0); Immature Granulocytes % (Auto) 1 % (0-0); Immature Granulocytes Auto 0.06 Thou/mm3 (0.00-0.00); Lymphocytes # (Auto) 0.4 Thou/mm3 (1.0-4.8); Lymphocytes % (Auto) 5 % (10-50); Mean Corpuscular HGB Conc 36.1 g/dl (31.0-37.0); Mean Corpuscular Volume 94 fL (80-100); Monocytes # (Auto) 0.1 Thou/mm3 (0.0-0.8); Monocytes % (Auto) 1 % (0-12); Neutrophils # (Auto) 7.6 Thou/mm3 (1.8-7.7); Neutrophils % (Auto) 93 % (37-80); Nucleated Red Blood Cell % 0 /100 WBC (0); RDW Standard Deviation 46.7 fL (35.1-43.9); Red Blood Count 3.24 Miln/mm3 (4.50-5.90); White Blood Count 8.2 Thou/mm3 (3.8-10.6)
[2024-08-21 05:43] LABS: Platelet Count 68 Thou/mm3 (140-440)
[2024-08-21 06:01] LABS: Alanine Aminotransferase 13 U/L (10-49); Albumin, Serum 2.4 gm/dL (3.4-4.8); Alkaline Phosphatase 99 U/L (46-116); Anion Gap 10 (7-16); Aspartate Amino Transferase 21 U/L (0-34); BUN/Creatinine Ratio 18 Ratio (12-20); Bilirubin,Total 0.7 mg/dL (0.3-1.2); Blood Urea Nitrogen 11 mg/dL (9-23); Calcium 7.7 mg/dL (8.3-10.6); Carbon Dioxide 23.9 mMol/L (20.0-31.0); Chloride 103 mMol/L (98-107); Creatinine (Component) 0.6 mg/dL (0.6-1.3); Estimated Creatinine Clearance 110.7 mL/min (>60); Globulin 2.5 gm/dL (2.3-3.5); Glucose 145 mg/dL (74-106); Magnesium 2.7 mg/dL (1.6-2.6); Osmolality,Calculated 276 (275-295); Phosphorous 2.9 mg/dL (2.4-5.1); Potassium 3.9 mMol/L (3.4-5.1); Sodium 137 mMol/L (136-145); Total Protein 4.9 gm/dL (5.7-8.2); eGFR > 60 See Note
--- NOTE | 2024-08-21 06:32 | PC.NURSE ---
Pt potassium 3.[address] to complete total of 80meq Kcl, 60meq have been given, contacted Dr. Kinsey if additional two needed to be given, per MD pardo to give last two.
[2024-08-21 07:24] LABS: Slide Review Platelets confirmed
[2024-08-21 08:22] LABS: Reflex Lactate? Y
--- NOTE | 2024-08-21 09:19 | PC.SS ---
Follow up note: On IV meds. On IV antibiotic.
[2024-08-21] MEDS: FONDAPARINUX 2.5 MG/0.5 ML 7.5 MG SC (09:45)
[2024-08-21] MEDS: PANTOPRAZOLE INJ 40 MG VIAL IVP (09:45)
[2024-08-21] MEDS: MethylPREDNISolone. 1,000 MG in SODIUM CHLORIDE 0.9% 250 ML 250 ML 266 MG IV (09:46)
[2024-08-21 09:54] LABS: Lactic Acid, 3 HR 2.7 mMol/L (0.4-2.0)
--- NOTE | 2024-08-21 10:47 | PD.RESPRO ---
Documentation for date of: 08/21/24 Subjective Subjective Interval history: Patient examined at bedside. Overnight, their was a RR at 1am due to worsening mentation and increased somnolence. CT head was negative for acute changes. This morning, their is improvement with patient opening eyes and shaking head. Thrombocytopenia improved to 68 today after starting dexamethasone 1 g daily. Will continue. CT angio chest was positive for PE. Will continue fondapairnux for treatment. Continue azithromycin, Rocefin in setting of pneumonia. Blood cultures were repeated due to possible contamination. Echo pending. Exam Vital Signs Temp Pulse Resp BP Pulse Ox O2 Del Method O2 Flow Rate 97.1 F 88 20 110/82 100 Nasal Cannula 0.5 08/21/24 08:00 08/21/24 08:00 08/21/24 08:00 08/21/24 08:00 08/21/24 08:00 08/21/24 08:00 08/21/24 08:00 Narrative Exam Constitutional: Frail looking elderly, in no acute distress, lying in bed, hard of hearing HEENT: NCAT, EOMI, reactive round pupils b/l, patent nares b/l, moist mucous membranes Lung: Distant breath sounds on L side, no wheezing, no rhonchi Heart: Regular S1S2, no murmurs, gallops, or rubs Abdomen: Soft, non-distended, non-tender, bowel sounds present throughout Extremities: No cyanosis, clubbing, edema of LLE compared to right/cold, retracts due to pain in LE Neurologic: AOx1, unable to perform the rest due to mentation Skin: Warm, dry, purpura noticed throughout body. b/L whole arms dusky, loose skin on extremities and back Objective Labs 08/22/24 08:20 08/22/24 08:20 Labs: Laboratory Results - last 24 hr 08/20/24 08/20/24 08/20/24 09:25 14:17 16:55 WBC 5.7 RBC 2.82 L Hgb 9.6 L Hct 25.2 L MCV 89 MCH 34.0 MCHC 38.1 H RDW Std Deviation 43.9 Plt Count 29 L* D Neut % (Auto) 74 Lymph % (Auto) 18 Walker % (Auto) 6 Eos % (Auto) 2 Baso % (Auto) 0 Neut # (Auto) 4.2 Lymph # (Auto) 1.0 Walker # (Auto) 0.3 Eos # (Auto) 0.1 Baso # (Auto) 0.0 Immature Gran # (Auto) 0.04 H Absolute Nucleated RBC 0.02 H Immature Gran % 1 H Nucleated RBC % 0 Smear Path Review Not Performed. Retic Count (auto) 0.3 L Absolute Retic 8.5 L Immature Retic Fraction 0.8 L Retic Hgb Content CHr 40.2 H PT 12.0 INR 1.1 APTT 29.6 Fibrinogen 132 L Puncture Site ABG pH ABG pCO2 ABG pO2 ABG HCO3 ABG O2 Saturation ABG Base Excess FiO2 Sodium Potassium Chloride Carbon Dioxide Anion Gap BUN Creatinine Estim Creat Clear Calc eGFR BUN/Creatinine Ratio Glucose Calculated Osmolality Lactic Acid Calcium Corrected Calcium Phosphorus Magnesium Total Bilirubin AST ALT Alkaline Phosphatase Ammonia Lactate Dehydrogenase 112 L Total Protein Albumin Globulin Albumin/Globulin Ratio TSH Misc Test Result Platelets confirmed Blood Type A Positive Antibody Screen NEGATIVE Blood Bank Wristband ID Yes 08/21/24 08/21/24 08/21/24 01:20 01:32 05:14 WBC 6.6 8.2 RBC 3.45 L 3.24 L Hgb 11.5 L 11.0 L Hct 31.4 L 30.5 L MCV 91 94 MCH 33.3 34.0 MCHC 36.6 36.1 RDW Std Deviation 45.5 H 46.7 H Plt Count 62 L D 68 L Neut % (Auto) 94 H 93 H Lymph % (Auto) 4 L 5 L [place] % (Auto) 1 1 Eos % (Auto) 0 0 Baso % (Auto) 0 0 Neut # (Auto) 6.2 7.6 Lymph # (Auto) 0.3 L 0.4 L Walker # (Auto) 0.1 0.1 Eos # (Auto) 0.0 0.0 Baso # (Auto) 0.0 0.0 Immature Gran # (Auto) 0.03 H 0.06 H Absolute Nucleated RBC 0.00 0.00 Immature Gran % 1 H 1 H Nucleated RBC % 0 0 Smear Path Review Retic Count (auto) Absolute Retic Immature Retic Fraction Retic Hgb Content CHr PT INR APTT Fibrinogen Puncture Site Left Radial ABG pH 7.45 ABG pCO2 34 ABG pO2 71 L ABG HCO3 24 ABG O2 Saturation 94 ABG Base Excess 0 FiO2 21 Sodium 138 137 Potassium 3.5 D 3.9 Chloride 102 103 Carbon Dioxide 24.4 23.9 Anion Gap 12 10 BUN 14 11 Creatinine 0.6 0.6 Estim Creat Clear Calc 110.7 110.7 eGFR > 60 > 60 BUN/Creatinine Ratio 23 H 18 Glucose 141 H D 145 H Calculated Osmolality 278 276 Lactic Acid 2.9 H 2.6 H Calcium 7.7 L 7.7 L Corrected Calcium 8.9 9.0 Phosphorus 2.9 2.9 Magnesium 1.8 2.7 H Total Bilirubin 0.7 0.7 AST 23 21 ALT 16 13 Alkaline Phosphatase 100 D 99 Ammonia < 10 L Lactate Dehydrogenase Total Protein 5.2 L 4.9 L Albumin 2.5 L D 2.4 L Globulin 2.7 2.5 Albumin/Globulin Ratio 0.9 L 1.0 L TSH 1.32 Misc Test Result Platelets confirmed Platelets confirmed Blood Type Antibody Screen Blood Bank Wristband ID 08/21/24 09:43 WBC RBC Hgb Hct MCV MCH MCHC RDW Std Deviation Plt Count Neut % (Auto) Lymph % (Auto) [place] % (Auto) Eos % (Auto) Baso % (Auto) Neut # (Auto) Lymph # (Auto) [place] # (Auto) Eos # (Auto) Baso # (Auto) Immature Gran # (Auto) Absolute Nucleated RBC Immature Gran % Nucleated RBC % Smear Path Review Retic Count (auto) Absolute Retic Immature Retic Fraction Retic Hgb Content CHr PT INR APTT Fibrinogen Puncture Site ABG pH ABG pCO2 ABG pO2 ABG HCO3 ABG O2 Saturation ABG Base Excess FiO2 Sodium Potassium Chloride Carbon Dioxide Anion Gap BUN Creatinine Estim Creat Clear Calc eGFR BUN/Creatinine Ratio Glucose Calculated Osmolality Lactic Acid 2.7 H Calcium Corrected Calcium Phosphorus Magnesium Total Bilirubin AST ALT Alkaline Phosphatase Ammonia Lactate Dehydrogenase Total Protein Albumin Globulin Albumin/Globulin Ratio TSH Misc Test Result Blood Type Antibody Screen Blood Bank Wristband ID ABG Interpretation ABG results: 08/21/24 01:20 ABG pH 7.45 ABG pCO2 34 ABG pO2 71 L ABG HCO3 24 ABG O2 Saturation 94 ABG Base Excess 0 Quality Measures Quality Measures none Advance care planning discussed with:: other Assessment & Plan Assessment Current Active Medications: Generic Name Dose Route Start Last Admin Trade Name Freq PRN Reason Stop Dose Admin Acetaminophen 650 mg 08/19/24 17:50 Acetaminophen 325 Mg Tablet PO 09/18/24 17:49 Q6H PRN Fever >101.5 Albuterol/Ipratropium 3 ml 08/19/24 19:00 08/21/24 07:14 Albuterol/Ipratropium (Duoneb) Rt Lo 3 Ml Nebu INH 09/18/24 18:59 3 ml Q6HRRT TEE Administration Docusate Sodium 100 mg 08/19/24 17:55 Docusate Sod 100 Mg Capsule PO 09/18/24 17:54 QDAY PRN CONSTIPATION Protocol Fondaparinux 7.5 mg 08/20/24 13:45 08/21/24 09:45 Fondaparinux 2.5 Mg/0.5 Ml Syrg (Non-Formulary) SC 09/03/24 13:44 7.5 mg QDAY TEE Administration Sodium Chloride 1,000 mls @ 100 mls/hr 08/19/24 18:00 08/21/24 02:50 Ns IV 09/18/24 17:59 Not Given .Q10H TEE Ceftriaxone Sodium/Dextrose 2 gm in 50 mls @ 100 mls/hr 08/20/24 14:00 08/20/24 14:36 Rocephin/D5w 2gm IV 08/27/24 13:59 100 mls/hr QDAY@1400 TEE Administration Azithromycin 500 mg/ Sodium 250 mls @ 250 mls/hr 08/20/24 14:00 08/20/24 14:37 Chloride IV 08/27/24 13:59 250 mls/hr QDAY@1400 TEE Administration Methylprednisolone Sodium 266 mls @ 266 mls/hr 08/20/24 13:45 08/21/24 09:46 Succinate 1,000 mg/ Sodium IV 08/23/24 13:44 266 mls/hr Chloride QDAY TEE Administration Metoclopramide HCl 10 mg 08/19/24 17:50 Metoclopramide Inj 5 Mg/Ml Vial 2 Ml IVP 09/18/24 17:49 Q6H PRN NAUSEA OR VOMITING Protocol Pantoprazole Sodium 40 mg 08/20/24 09:00 08/21/24 09:45 Pantoprazole Inj 40 Mg Vial IVP 09/19/24 08:59 40 mg QDAY TEE Administration Pharmacy Consult 1 each 08/19/24 21:07 Pharmacy To Consult Pneumovacc XX 09/18/24 21:06 PRN PRN CONSULT Plan Matthew Perez is 78 y/o male patient with significant medical history for hypertension, GERD, severe osteoarthritis of bilateral knees and current smoker was brought to ED from home for symptoms of altered mental status and hypoxia. Patient admitted for AMS and PNA. #Acute encephalopathy likely due to #Pneumonia #Possible aspiration Patient with AMS for x1 day Patient also endorsing intermittent cough CXR showed diffuse left-sided infiltrate Plan: -Neurocheck Q4H -IV abx Azithro and Rocephin -repeat Blood culture pending -DuoNebs Q6H -Tylenol for fever -Aspiration precaution #DVT #Pulmonary embolism #Thrombocytopenia Patient immobile for last few months On physical exam LLE edematous compared to right Platelets decreased from 300K to 59K since May 2024 Wells score of 4.5 points, 16.2% chance of PE Venous doppler positive for DVT in left superficial femoral and popliteal veins. platelets further dropped from 56-->49-->29 CT angio chest positive for PE LDH 112 (low), retic count 0.3% (low), fibrinogen 132 (low) Plan: -cardiology consulted, recs pending -echo pending -platelets improved today to 68 after starting dexamethasone -hold heparin products - smear, haptoglobin, pending -continue dexamethasone 1 g daily for empiric treatment for ITP -continue fondaparinux 7.5mgSC daily for PE treatment -Follow up CBC #Hx of HTN #Hx of GERD Plan: -Currently BP WNL -Consider restarting home med after reconciliation -PPI prophylaxis Health Maintenance Dispo: abx, DVT, PE tx Diet: dysphagia after passing swallow eval DVT/PPx: no heparin, fondparanux 7.5mg daily GI ppx: Protonix Lines: PIV Code Status: DNR The patient's management plan was discussed with my attending physician Dr. Driscoll. Kellen Cruz, PGY-1 Attending Provider Attestation/Addendum I have discussed and was present for the essential components of the history, physical examination, diagnosis, and treatment plan with the resident. I agree with the patient's care as documented by the resident and amended herein by me. Raghavendra Driscoll DO. Although this document has been carefully reviewed, there may still be some phonetic and other typographical errors. These errors are purely grammatical due to imperfections in the software program and should not be construed in any way to compromise the substance of the patient's medical care during this visit.
--- NOTE | 2024-08-21 11:25 | ECHO_ITS ---
Transthoracic Echo Report Ht (in): 69 Wt (lb): 198 Exam Location: Echo Lab Status: Inpatient [facility] Operator: Comfort Winters Indications: Procedure Performed: BP: 121 / 91 HR: 100 MEASUREMENTS (Male / Female) Normal Values 2D ECHO LVOT Diameter 1.8 cm Aortic Root Diameter 2.9 cm LA Systolic Diameter LX 4.5 cm 3.0 - 4.0 / 2.7 - 3.8 cm DOPPLER AV Peak Velocity 172.0 cm/s AV Peak Gradient 11.8 mmHg AV Mean Gradient 6.0 mmHg AV Velocity Time Integral 34.0 cm LVOT Peak Velocity 76.1 cm/s LVOT Peak Gradient 2.3 mmHg LVOT Velocity Time Integral 19.4 cm LVOT Cardiac Index 2336.5 cm?/min?m? AV Area Cont Eq vti 1.5 cm? AV Area Cont Eq pk 1.1 cm? MR Peak Velocity 324.0 cm/s MR Peak Gradient 42.0 mmHg TR Peak Velocity 246.5 cm/s TR Peak Gradient 24.3 mmHg PV Peak Velocity 99.1 cm/s PV Peak Gradient 3.9 mmHg FINDINGS Left Ventricle Normal left ventricular size, wall thickness, systolic function with no obvious regional wall motion abnormalities. Normal left ventricular diastolic filling pattern for age. The ejection fraction is visually estimated at 50%. Right Ventricle The right ventricle is normal in size and systolic function. The estimated right ventricular systolic pressure, 42 mmHg. RAP 15. Left Atrium The left atrial cavity size is mildly increased. Right Atrium The right atrium is normal by two-dimensional imaging, color flow and Doppler imaging with no structural abnormalities, no thrombus formation present. Atrial Septum The interatrial septum appears normal with no evidence of a shunt. Aorta The aorta is normal by two-dimensional, color flow and Doppler interrogation. Mitral Valve [id number] mitral regurgitation. Aortic Valve The aortic valve is trileaflet and normal by two-dimensional, color flow and Doppler interrogation. There is no significant aortic valve regurgitation. Tricuspid Valve There is mild tricuspid valve regurgitation. Pulmonic Valve The pulmonic valve is not well visualized. There is no significant pulmonic valve regurgitation. Vessels Dilated inferior vena cava. Pericardium The pericardium is normal by two-dimensional imaging. There is no significant pericardial effusion. CONCLUSIONS Indication: PE Normal LV size and function. Estimated EF 50%. RV is normal in size and systolic function. Estimated RVSP, 42 mmHg. RAP 15. LA cavity size is mildly increased. [id number] MR. There is mild TR. Dilated IVC. Kayla Davenport (Electronically Signed) Final Date: 21 August 2024 23:20
--- NOTE | 2024-08-21 13:28 | PD.RESPRO ---
Documentation for date of: 08/21/24 Exam Vital Signs Temp Pulse Resp BP Pulse Ox O2 Del Method O2 Flow Rate 97.1 F 88 20 110/82 100 Nasal Cannula 0.5 08/21/24 08:00 08/21/24 08:00 08/21/24 08:00 08/21/24 08:00 08/21/24 08:00 08/21/24 08:00 08/21/24 08:00 Objective Labs 08/21/24 05:14 08/21/24 05:14 Labs: Laboratory Results - last 24 hr 08/20/24 08/20/24 08/21/24 14:17 16:55 01:20 WBC RBC Hgb Hct MCV MCH MCHC RDW Std Deviation Plt Count Neut % (Auto) Lymph % (Auto) [place] % (Auto) Eos % (Auto) Baso % (Auto) Neut # (Auto) Lymph # (Auto) [place] # (Auto) Eos # (Auto) Baso # (Auto) Immature Gran # (Auto) Absolute Nucleated RBC Immature Gran % Nucleated RBC % PT 12.0 INR 1.1 APTT 29.6 Puncture Site Left Radial ABG pH 7.45 ABG pCO2 34 ABG pO2 71 L ABG HCO3 24 ABG O2 Saturation 94 ABG Base Excess 0 FiO2 21 Sodium Potassium Chloride Carbon Dioxide Anion Gap BUN Creatinine Estim Creat Clear Calc eGFR BUN/Creatinine Ratio Glucose Calculated Osmolality Lactic Acid Calcium Corrected Calcium Phosphorus Magnesium Total Bilirubin AST ALT Alkaline Phosphatase Ammonia Total Protein Albumin Globulin Albumin/Globulin Ratio TSH Misc Test Result Blood Type A Positive Antibody Screen NEGATIVE Blood Bank Wristband ID Yes 08/21/24 08/21/24 08/21/24 01:32 05:14 09:43 WBC 6.6 8.2 RBC 3.45 L 3.24 L Hgb 11.5 L 11.0 L Hct 31.4 L 30.5 L MCV 91 94 MCH 33.3 34.0 MCHC 36.6 36.1 RDW Std Deviation 45.5 H 46.7 H Plt Count 62 L D 68 L Neut % (Auto) 94 H 93 H Lymph % (Auto) 4 L 5 L [place] % (Auto) 1 1 Eos % (Auto) 0 0 Baso % (Auto) 0 0 Neut # (Auto) 6.2 7.6 Lymph # (Auto) 0.3 L 0.4 L [place] # (Auto) 0.1 0.1 Eos # (Auto) 0.0 0.0 Baso # (Auto) 0.0 0.0 Immature Gran # (Auto) 0.03 H 0.06 H Absolute Nucleated RBC 0.00 0.00 Immature Gran % 1 H 1 H Nucleated RBC % 0 0 PT INR APTT Puncture Site ABG pH ABG pCO2 ABG pO2 ABG HCO3 ABG O2 Saturation ABG Base Excess FiO2 Sodium 138 137 Potassium 3.5 D 3.9 Chloride 102 103 Carbon Dioxide 24.4 23.9 Anion Gap 12 10 BUN 14 11 Creatinine 0.6 0.6 Estim Creat Clear Calc 110.7 110.7 eGFR > 60 > 60 BUN/Creatinine Ratio 23 H 18 Glucose 141 H D 145 H Calculated Osmolality 278 276 Lactic Acid 2.9 H 2.6 H 2.7 H Calcium 7.7 L 7.7 L Corrected Calcium 8.9 9.0 Phosphorus 2.9 2.9 Magnesium 1.8 2.7 H Total Bilirubin 0.7 0.7 AST 23 21 ALT 16 13 Alkaline Phosphatase 100 D 99 Ammonia < 10 L Total Protein 5.2 L 4.9 L Albumin 2.5 L D 2.4 L Globulin 2.7 2.5 Albumin/Globulin Ratio 0.9 L 1.0 L TSH 1.32 Misc Test Result Platelets confirmed Platelets confirmed Blood Type Antibody Screen Blood Bank Wristband ID ABG Interpretation ABG results: 08/21/24 01:20 ABG pH 7.45 ABG pCO2 34 ABG pO2 71 L ABG HCO3 24 ABG O2 Saturation 94 ABG Base Excess 0 Quality Measures Quality Measures none Assessment & Plan Assessment Current Active Medications: Generic Name Dose Route Start Last Admin Trade Name Freq PRN Reason Stop Dose Admin Acetaminophen 650 mg 08/19/24 17:50 Acetaminophen 325 Mg Tablet PO 09/18/24 17:49 Q6H PRN Fever >101.5 Albuterol/Ipratropium 3 ml 08/19/24 19:00 08/21/24 07:14 Albuterol/Ipratropium (Duoneb) Rt Lo 3 Ml Nebu INH 09/18/24 18:59 3 ml Q6HRRT TEE Administration Docusate Sodium 100 mg 08/19/24 17:55 Docusate Sod 100 Mg Capsule PO 09/18/24 17:54 QDAY PRN CONSTIPATION Protocol Fondaparinux 7.5 mg 08/20/24 13:45 08/21/24 09:45 Fondaparinux 2.5 Mg/0.5 Ml Syrg (Non-Formulary) SC 09/03/24 13:44 7.5 mg QDAY TEE Administration Sodium Chloride 1,000 mls @ 100 mls/hr 08/19/24 18:00 08/21/24 02:50 Ns IV 09/18/24 17:59 Not Given .Q10H TEE Ceftriaxone Sodium/Dextrose 2 gm in 50 mls @ 100 mls/hr 08/20/24 14:00 08/20/24 14:36 Rocephin/D5w 2gm IV 08/27/24 13:59 100 mls/hr QDAY@1400 TEE Administration Azithromycin 500 mg/ Sodium 250 mls @ 250 mls/hr 08/20/24 14:00 08/20/24 14:37 Chloride IV 08/27/24 13:59 250 mls/hr QDAY@1400 TEE Administration Methylprednisolone Sodium 266 mls @ 266 mls/hr 08/20/24 13:45 08/21/24 09:46 Succinate 1,000 mg/ Sodium IV 08/23/24 13:44 266 mls/hr Chloride QDAY TEE Administration Metoclopramide HCl 10 mg 08/19/24 17:50 Metoclopramide Inj 5 Mg/Ml Vial 2 Ml IVP 09/18/24 17:49 Q6H PRN NAUSEA OR VOMITING Protocol Nicotine 7 mg 08/21/24 13:00 Nicotine Patch 7 Mg/24 Hr Patch.Td24 TOP 09/20/24 12:59 QDAY TEE Pantoprazole Sodium 40 mg 08/20/24 09:00 08/21/24 09:45 Pantoprazole Inj 40 Mg Vial IVP 09/19/24 08:59 40 mg QDAY TEE Administration Pharmacy Consult 1 each 08/19/24 21:07 Pharmacy To Consult Pneumovacc XX 09/18/24 21:06 PRN PRN CONSULT
[2024-08-21] MEDS: NICOTINE PATCH 7 MG/24 HR PATCH.TD24 TOP (13:34)
[2024-08-21] MEDS: cefTRIAXone/D5w 2gm 2 GM/50 ML BAG IV (13:34)
[2024-08-21] MEDS: AZITHROMYCIN INJ 500 MG in SODIUM CHLORIDE 0.9% 250 ML 250 ML 250 MG IV (13:35)
--- NOTE | 2024-08-21 13:43 | ESCONSULT_ITS ---
<Statement entered by Neeta Yanez MD - 08/23/24 22:35> I personally examined the patient and evaluate the patient's overall health and evaluate the patient with PGY 2 Dr. Laure Leonard, PMD appears to be confused patient is difficult to get detailed history but clearly has pulmonary embolism and DVT right lower lobe pulmonary emboli is not large enough to be concerned no evidence of RV overload or pulmonary hypertension hence we will manage with IV heparin watch for bleeding signs. No indication for thrombolytic therapy or catheter-based intervention. Agree with the treatment plan recommendation as documented by Dr. Laure Leonard and will monitor the patient closely HPI Data of Consult Requesting Physician: Fadi Driscoll DO Admitting Provider: William Herrera MD Attending Provider: Fadi Driscoll DO Primary Care Provider: Rubén Triana MD Consult Narrative Reason for consult: PE History of present illness: Patient is a 78-year-old male with past medical history of hypertension, GERD, severe osteoarthritis of bilateral knees, and current smoker who was brought to ED on 08/19/2024 from home for symptoms of altered mental status and hypoxia. Patient is unable to answer any questions, daughter at bedside who provides further information. Patient had a hospitalization at [facility] last April for C. Diff, COVID, and flu after which he has been mostly bedbound. The patient is also still actively smoking 3-4 cigarettes daily. Grandson is the primary caregiver at home. At baseline the patient apparently was able to recognize and speak with family, although he is very [id number]. Around 5 days ago he was noted to have a decline in mentation and thus was brought in. Patient was admitted for AMS and pneumonia treatment. Review of the data shows hemodynamically stable vitals. HR 80-90s, BP in normal range. Patient is saturating 97% on room air. EKG on admission showed afib with a rate of 95. CXR showed diffuse left-sided infiltrate, possible bilateral pleural effusions. Head CT showed chronic diffuse cortical atrophy and chronic small vessel disease. Venous duplex US bilateral lower extremities showed extensive occlusive deep vein thrombus involving the left superficial femoral and popliteal veins. Chest CTA showed multiple pulmonary artery emboli right pulmonary artery branches, mild heart failure, pulmonary infarction right base, cirrhosis, and mild ascites. Labs showed thrombocytopenia with platelet count 68k (as low as 29k on 4/13), hypokalemia on admission to 2.6 which was corrected, lactic acid remaining around 2.6. Troponin negative <0.020, BNP 155. TSH normal 1.32. Creatinine normal 0.6. Procalcitonin normal 0.14. ABG done today showed slight hypoxia pO2 71 otherwise normal with pH 7.45. Cardiology was consulted in the setting of pulmonary embolism findings. 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 HEENT: Normocephalic, atraumatic, mucous membranes moist. Heart: Regular rate and rhythm, normal S1 and S2, no murmurs. Lungs: Clear to auscultation with no wheezing or crackles. Abdomen: Soft, obese, nondistended, nontender, positive bowel sounds. ?No guarding or rebound tenderness. Neurologic: Alert and oriented x0, no gross neurological deficit, and patient able to move all 4 extremities. Follows only some commands. Extremities: Bilateral lower extremity edema L>R. 3+ left leg pitting edema. Skin: No rash or ecchymoses. Results Labs 08/21/24 05:14 08/21/24 05:14 Labs: Short CBC 08/21/24 08/21/24 Range/Units 01:32 05:14 WBC 6.6 8.2 (3.8-10.6) Thou/mm3 Hgb 11.5 L 11.0 L (13.5-16.0) g/dL Hct 31.4 L 30.5 L (41.0-53.0) % Plt Count 62 L D 68 L (140-440) Thou/mm3 BMP 08/21/24 08/21/24 01:32 05:14 Sodium 138 137 Potassium 3.5 D 3.9 Chloride 102 103 Carbon Dioxide 24.4 23.9 BUN 14 11 Creatinine 0.6 0.6 Glucose 141 H D 145 H Calcium 7.7 L 7.7 L Liver Function 08/21/24 08/21/24 Range/Units 01:32 05:14 Total Bilirubin 0.7 0.7 (0.3-1.2) mg/dL AST 23 21 (0-34) U/L ALT 16 13 (10-49) U/L Alkaline Phosphatase 100 D 99 (46-116) U/L Albumin 2.5 L D 2.4 L (3.4-4.8) gm/dL ABG Interpretation ABG results: 08/21/24 01:20 ABG pH 7.45 ABG pCO2 34 ABG pO2 71 L ABG HCO3 24 ABG O2 Saturation 94 ABG Base Excess 0 Quality Measures Quality Measures none Advance care planning discussed with:: patient and child Medications Home Medications and Allergies Home Medications ?Medication ?Instructions ?Recorded ?Confirmed ?Type ibuprofen 800 mg tablet 800 mg PO TID PRN Pain 09/2508/19/24 History lisinopril 40 mg tablet 40 mg PO QDAY 03/05/2308/19 History albuterol sulfate 90 mcg/actuation 2 puff inhalation Q 4H PRN 08/19/24 08/19/24 History aerosol inhaler shortness of breath or wheez ing metoclopramide HCl 10 mg tablet 10 mg PO Q6H PRN nause a and 08/19/24 08/19/24 History vomiting ondansetron HCl 4 mg tablet 4 mg PO Q6H PRN nausea and vomiting 08/19/24 08/19/24 History Allergies Allergy/AdvReac Type Severity Reaction Status Date / Time aspirin Allergy Intermediate UPSET Verified 08/19/24 20:56 STOMACH Visit Medications Acetaminophen (Acetaminophen 325 Mg Tablet) 650 mg PO Q6H PRN PRN Reason: Fever >101.5 Stop: 09/18/24 17:49 Albuterol/Ipratropium (Albuterol/Ipratropium (Duoneb) Rt Lo 3 Ml Nebu) 3 ml INH Q6HRRT [facility] Stop: 09/18/24 18:59 Last Admin: 08/21/24 07:14 Dose: 3 ml Docusate Sodium (Docusate Sod 100 Mg Capsule) 100 mg PO QDAY PRN; Protocol PRN Reason: CONSTIPATION Stop: 09/18/24 17:54 Fondaparinux (Fondaparinux 2.5 Mg/0.5 Ml Syrg (Non-Formulary)) 7.5 mg SC QDAY [facility] Stop: 09/03/24 13:44 Last Admin: 08/21/24 09:45 Dose: 7.5 mg Sodium Chloride (Ns) 1,000 mls @ 100 mls/hr IV .Q10H [facility] Stop: 09/18/24 17:59 Last Admin: 08/21/24 02:50 Dose: Not Given Ceftriaxone Sodium/Dextrose (Rocephin/D5w 2gm) 2 gm in 50 mls @ 100 mls/hr IV QDAY@1400 [facility] Stop: 08/27/24 13:59 Last Admin: 08/21/24 13:34 Dose: 100 mls/hr Azithromycin 500 mg/ Sodium (Chloride) 250 mls @ 250 mls/hr IV QDAY@1400 [facility] Stop: 08/27/24 13:59 Last Admin: 08/21/24 13:35 Dose: 250 mls/hr Methylprednisolone Sodium Succinate 1,000 mg/ Sodium Chloride 266 mls @ 266 mls/hr IV QDAY [facility] Stop: 08/23/24 13:44 Last Admin: 08/21/24 09:46 Dose: 266 mls/hr Metoclopramide HCl (Metoclopramide Inj 5 Mg/Ml Vial 2 Ml) 10 mg IVP Q6H PRN; Protocol PRN Reason: NAUSEA OR VOMITING Stop: 09/18/24 17:49 Nicotine (Nicotine Patch 7 Mg/24 Hr Patch.Td24) 7 mg TOP QDAY [facility] Stop: 09/20/24 12:59 Last Admin: 08/21/24 13:34 Dose: 7 mg Pantoprazole Sodium (Pantoprazole Inj 40 Mg Vial) 40 mg IVP QDAY [facility] Stop: 09/19/24 08:59 Last Admin: 08/21/24 09:45 Dose: 40 mg Pharmacy Consult (Pharmacy To Consult Pneumovacc) 1 each XX PRN PRN PRN Reason: CONSULT Stop: 09/18/24 21:06 Discontinued Medications Dexamethasone Sodium Phosphate (Dexamethasone Sod Phos Inj 4 Mg/Ml Vial) 4 mg IV DAILY [facility]; Protocol Stop: 08/24/24 13:14 Heparin Sodium (Porcine) (Heparin Sod Inj 5000 Unit/Ml Vial) 5,000 unit SC Q8HR [facility] Stop: 09/02/24 21:59 Last Admin: 08/19/24 23:55 Dose: Not Given Ceftriaxone Sodium/Dextrose (Rocephin/D5w 1gm Iv Premix) 1 gm in 50 mls @ 100 mls/hr IV X1 ONE Stop: 08/19/24 16:50 Last Admin: 08/19/24 17:17 Dose: 100 mls/hr Azithromycin 500 mg/ Sodium (Chloride) 250 mls @ 250 mls/hr IV X1 ONE Stop: 08/19/24 17:20 Last Admin: 08/19/24 19:59 Dose: 250 mls/hr Potassium Chloride (Kcl Ivpb) 10 meq in 100 mls @ 100 mls/hr IV X1 ONE Stop: 08/19/24 17:21 Last Admin: 08/19/24 19:59 Dose: 100 mls/hr Lactated Ringer's (Lactated Ringers) 1,000 mls @ 999 mls/hr IV .Q1H1M ONE Stop: 08/19/24 17:37 Last Admin: 08/19/24 19:57 Dose: 999 mls/hr Azithromycin 500 mg/ Sodium (Chloride) 250 mls @ 250 mls/hr IV QDAY@1400 [facility] Stop: 08/27/24 13:59 Potassium Chloride (Kcl Ivpb) 10 meq in 100 mls @ 100 mls/hr IV Q1H [facility] Stop: 08/20/24 02:37 Last Admin: 08/20/24 01:53 Dose: 100 mls/hr Magnesium Sulfate (Magnesium Sulfate Ivpb) 4 gm in 50 mls @ 12.5 mls/hr IV X1 ONE Stop: 08/20/24 14:30 Last Admin: 08/20/24 10:59 Dose: 12.5 mls/hr Potassium Chloride (Kcl Ivpb) 10 meq in 100 mls @ 100 mls/hr IV Q1H TEE Stop: 08/20/24 18:52 Last Infusion: 08/21/24 01:15 Dose: Infused Potassium Chloride (Kcl Ivpb) 10 meq in 100 mls @ 100 mls/hr IV Q1H TEE Stop: 08/20/24 22:59 Last Admin: 08/21/24 06:37 Dose: Not Given Magnesium Sulfate (Magnesium Sulfate Ivpb) 4 gm in 50 mls @ 12.5 mls/hr IV X1 ONE Stop: 08/21/24 05:06 Last Infusion: 08/21/24 06:18 Dose: Infused Sodium Chloride (Ns) 250 mls @ 999 mls/hr IV .Q16M ONE Stop: 08/21/24 02:29 Last Admin: 08/21/24 05:16 Dose: Not Given Sodium Chloride (Ns) 500 mls @ 999 mls/hr IV .Q31M ONE Stop: 08/21/24 02:46 Last Infusion: 08/21/24 03:29 Dose: Infused Potassium Chloride (Kcl Ivpb) 10 meq in 100 mls @ 100 mls/hr IV Q1H TEE Stop: 08/21/24 08:34 Last Admin: 08/21/24 08:03 Dose: 100 mls/hr Methylprednisolone Sodium Succinate (Methylprednisolone Sod Succ 40 Mg Vial) 1,000 mg IVP DAILY TEE Stop: 08/23/24 13:29 Non-Formulary Medication (Argatroban) 1 mcg IV DAILY TEE Stop: 09/19/24 14:29 Pharmacy Consult (Pharmacy To Consult Patient) 1 each XX PRN PRN PRN Reason: CONSULT Stop: 09/18/24 21:06 Pneumococcal Polyvalent Vaccine (Pneumoc 20-Graciela Conj-Dip Crm/Pf 0.5 Ml Syringe) 0.5 ml IMi .ONCE ONE Stop: 08/20/24 09:01 Potassium Chloride (Potassium Chloride 20 Meq Tabcr) 40 meq PO X1 ONE Stop: 08/19/24 16:22 Potassium Chloride (Potassium Chloride 10% 20 Meq/15 Ml Udc) 40 meq PO X1 ONE Stop: 08/19/24 17:34 Last Admin: 08/19/24 19:53 Dose: 40 meq Potassium Chloride (Potassium Chloride 10% 20 Meq/15 Ml Udc) 40 meq PO X1 ONE Stop: 08/19/24 18:07 Last Admin: 08/19/24 21:37 Dose: Not Given Sodium Chloride (Sodium Chloride Rt 10% 15 Ml Nebu) 5 ml INH X1 ONE Stop: 08/19/24 17:56 Last Admin: 08/19/24 18:38 Dose: 5 ml Assessment & Plan Plan 78-year-old male with past medical history of hypertension, GERD, severe osteoarthritis of bilateral knees, and current smoker who was brought to ED from home for symptoms of altered mental status and hypoxia, subsequently admitted for community acquired pneumonia and later found to have acute PE, thus Cardiology was consulted. #Acute pulmonary emboli right pulmonary artery branches #Pulmonary infarction right base #Occlusive deep vein thrombus left superficial femoral and popliteal veins PE found on CTA chest and DVT positive on L venous doppler. Provoked likely secondary to significant bedbound status in the last several months as described by the family. Patient at present appears stable on room air, no evidence of right heart strain. 08/21/2024 Echo showed normal LV size and function. Estimated EF 50%. RV is normal in size and systolic function. Estimated RVSP, 42 mmHg. RAP 15. LA cavity size is mildly increased. [id number] MR. There is mild TR. Dilated IVC. -Continue therapeutic dose anticoagulation, may start patient on Eliquis 10 mg BID -No need for thrombectomy intervention given size of PE, hemodynamically stable, and no evidence of right heart strain Rest of conditions to continue current management per primary team: #Acute metabolic encephalopathy #History of dementia #Community acquired pneumonia #Thrombocytopenia #Chronic normocytic anemia #Current tobacco abuse Cardiology will continue to follow. Patient was discussed with the attending, Dr. Yanez. Thank you for allowing us to participate in the care of this patient. Elif Leonard, PGY-2
--- NOTE | 2024-08-21 15:49 | PC.SS ---
Pt is confused.? SS met with pt, dtr, Ericka, and his grandson, Johny regarding patient's d/c plan.? Pt is confused at this time.? Pt resides alone.? Per family pt is bedbound.? Pt has wheelchair.? Sebas is patient's [facility] caregiver 5-6 hours day (10-6) and family helps care for pt 24 hours at home.? Per family, pt being confused is not his normal baseline (normally pt is altert/oriented at home).? Dtr Ericka Perez states she is patients point of contact and her sister Estela Connerujillo.? SS provided verbal d/c options for d/c to home or SNF.? Isacc, Ericka and grandson are requesting pt go to SNF for short term and Ericka states she will inform the rest of the family.? Family is aware SNF referral will be sent out to the local SNF.? Isacc, Ericka declines [facility] Per Ericka, pt followed up with PCP in May,. DC Plan:? SNF Next of Kin:? Ericka Perez dtr, phone# [phone] or Estela Perez dtr, phone# [phone] PCP:? Rubén Triana Address:? [address] [place] [id number]
[2024-08-21] MEDS: ACETAMINOPHEN 325 MG TABLET 650 MG PO (19:58)
[2024-08-21] MEDS: MELATONIN 3 MG TABLET PO (22:48)
[2024-08-22] VITALS (11 sets, daily range): BP systolic 102–118; BP diastolic 71–89; PULSE 73–96; RESP 16–25; TEMP 35.4–36.1; O2SAT 93–100; BMI 29.3
[2024-08-22] MEDS: ALBUTEROL/IPRATROPIUM (Duoneb) RT SOL 3 ML NEBU INH ×3 (01:58→18:40)
[2024-08-22] MEDS: SODIUM CHLORIDE 0.9% 1000 ML 1,000 ML 100 ML IV ×2 (07:52→09:26)
[2024-08-22 09:07] LABS: Basophils % (Auto) 0 % (0-2.5); Eosinophils % (Auto) 0 % (0-10); Hematocrit 28.7 % (41.0-53.0); Hemoglobin 10.7 g/dL (13.5-16.0); Immature Granulocytes % (Auto) 1 % (0-0); Lymphocytes # (Auto) 0.7 Thou/mm3 (1.0-4.8); Lymphocytes % (Auto) 4 % (10-50); Mean Corpuscular HGB Conc 37.3 g/dl (31.0-37.0); Mean Corpuscular Hemoglobin 33.4 pg (25.0-35.0); Mean Corpuscular Volume 90 fL (80-100); Monocytes # (Auto) 0.3 Thou/mm3 (0.0-0.8); Monocytes % (Auto) 2 % (0-12); Neutrophils # (Auto) 17.7 Thou/mm3 (1.8-7.7); Neutrophils % (Auto) 94 % (37-80); Nucleated Red Blood Cell % 0 /100 WBC (0); RDW Standard Deviation 45.1 fL (35.1-43.9); White Blood Count 18.8 Thou/mm3 (3.8-10.6)
[2024-08-22 09:12] LABS: Platelet Count 47 Thou/mm3 (140-440)
--- NOTE | 2024-08-22 09:19 | PC.SS ---
SS has sent inquiry to the local SNF using [facility].
[2024-08-22 09:25] LABS: Alanine Aminotransferase 14 U/L (10-49); Albumin, Serum 2.5 gm/dL (3.4-4.8); Alkaline Phosphatase 107 U/L (46-116); Anion Gap 9 (7-16); Aspartate Amino Transferase 18 U/L (0-34); BUN/Creatinine Ratio 20 Ratio (12-20); Bilirubin,Total 0.6 mg/dL (0.3-1.2); Blood Urea Nitrogen 12 mg/dL (9-23); Calcium 7.5 mg/dL (8.3-10.6); Calcium (Corrected) 8.7 mg/dL (8.5-10.1); Carbon Dioxide 22.4 mMol/L (20.0-31.0); Chloride 105 mMol/L (98-107); Creatinine (Component) 0.6 mg/dL (0.6-1.3); Estimated Creatinine Clearance 110.7 mL/min (>60); Globulin 2.6 gm/dL (2.3-3.5); Glucose 123 mg/dL (74-106); Magnesium 2.3 mg/dL (1.6-2.6); Osmolality,Calculated 272 (275-295); Phosphorous 2.8 mg/dL (2.4-5.1); Potassium 3.6 mMol/L (3.4-5.1); Sodium 136 mMol/L (136-145); Total Protein 5.1 gm/dL (5.7-8.2); eGFR > 60 See Note
[2024-08-22] MEDS: NICOTINE PATCH 7 MG/24 HR PATCH.TD24 TOP (09:28)
[2024-08-22] MEDS: PANTOPRAZOLE INJ 40 MG VIAL IVP (09:29)
[2024-08-22] MEDS: FONDAPARINUX 2.5 MG/0.5 ML 7.5 MG SC (09:29)
[2024-08-22] MEDS: MethylPREDNISolone. 1,000 MG in SODIUM CHLORIDE 0.9% 250 ML 250 ML 266 MG IV (09:30)
[2024-08-22 09:41] LABS: Slide Review Platelets confirmed
[2024-08-22] MEDS: AZITHROMYCIN INJ 500 MG in SODIUM CHLORIDE 0.9% 250 ML 250 ML 250 MG IV (13:46)
--- NOTE | 2024-08-22 14:32 | ESPR_ITS ---
<Statement entered by Neeta Yanez MD - 08/28/24 08:30> I personally examined evaluated the patient with PGY 2 Dr[address] Laure Leonard MD patient appears to be not. I agree with the treatment plan recommendation as documented doing well no chest pain shortness of breath but have lower patient is having significant bleeding issues with anticoagulation which is discontinued recommending IVC filter placement to be scheduled prognosis poor because of multisystem problems by resident physician Documentation for date of: 08/22/24 Subjective Subjective Interval history: No acute events overnight.?Patient seen and examined at bedside this afternoon. Patient continues to be unable to answer any questions, per family at bedside he has not verbalized formed words and seems to only make sounds. Per nursing, multiple IV sites have been extravasating and going bad. Additionally, patient has bleeding from IV sites and forearm skin tears.?Therefore anticoagulant fondaparinux was held starting today. Labs and vitals were reviewed.?BP remains in normal range. RR 20-21. Patient continues to saturate above 93% on room air and there continues to be no evidence of respiratory distress. Platelets decreased again from 68k to 47k. WBC noted to uptrend greatly from 8.2 to 18.8 however patient is on steroids for ITP treatment. Due to the bleeding it is recommended that IVC filter be placed. Order placed for tomorrow procedure and NPO after midnight. Daughter at bedside updated on the plan and details of the disease process. She shared that patient would most likely be going to SNF at discharge. Review of systems otherwise negative except what is mentioned above. Exam Vital Signs Temp Pulse Resp BP Pulse Ox O2 Del Method O2 Flow Rate 96.2 F L 89 21 H 109/75 93 L Room Air 0.5 08/22/24 11:40 08/22/24 11:40 08/22/24 11:40 08/22/24 11:40 08/22/24 11:40 08/22/24 11:40 08/21/24 08:00 Narrative Exam Physical Exam General: Awake, localizes to voice, makes eye contact but unable to answer any questions, making sounds instead. HEENT: Normocephalic, atraumatic, mucous membranes moist. Heart: Regular rate and rhythm, normal S1 and S2, no murmurs. Lungs: Clear to auscultation with no wheezing or crackles. Abdomen: Soft, obese, nondistended, nontender, positive bowel sounds. ?No guarding or rebound tenderness. Neurologic: Alert and oriented x0, no gross neurological deficit, and patient able to move all 4 extremities. Follows only some commands. Extremities: Bilateral lower extremity edema L>R. Worsening 3+ left leg pitting edema. Skin: Bilateral upper extremities with significant ecchymoses and extravasation sites, open bleeding skin tear 1.5 cm left dorsal hand. Objective Labs 08/22/24 08:20 08/22/24 08:20 Labs: Laboratory Results - last 24 hr 08/22/24 08:20 WBC 18.8 H D RBC 3.20 L Hgb 10.7 L Hct 28.7 L MCV 90 MCH 33.4 MCHC 37.3 H RDW Std Deviation 45.1 H Plt Count 47 L D Neut % (Auto) 94 H Lymph % (Auto) 4 L [place] % (Auto) 2 Eos % (Auto) 0 Baso % (Auto) 0 Neut # (Auto) 17.7 H Lymph # (Auto) 0.7 L [place] # (Auto) 0.3 Eos # (Auto) 0.0 Baso # (Auto) 0.0 Immature Gran # (Auto) 0.10 H Absolute Nucleated RBC 0.00 Immature Gran % 1 H Nucleated RBC % 0 Sodium 136 Potassium 3.6 Chloride 105 Carbon Dioxide 22.4 Anion Gap 9 BUN 12 Creatinine 0.6 Estim Creat Clear Calc 110.7 eGFR > 60 BUN/Creatinine Ratio 20 Glucose 123 H Calculated Osmolality 272 L Calcium 7.5 L Corrected Calcium 8.7 Phosphorus 2.8 Magnesium 2.3 Total Bilirubin 0.6 AST 18 ALT 14 Alkaline Phosphatase 107 Total Protein 5.1 L Albumin 2.5 L Globulin 2.6 Albumin/Globulin Ratio 1.0 L Misc Test Result Platelets confirmed ABG Interpretation ABG results: 08/21/24 01:20 ABG pH 7.45 ABG pCO2 34 ABG pO2 71 L ABG HCO3 24 ABG O2 Saturation 94 ABG Base Excess 0 Quality Measures Quality Measures none Advance care planning discussed with:: patient Assessment & Plan Assessment Current Active Medications: Generic Name Dose Route Start Last Admin Trade Name Freq PRN Reason Stop Dose Admin Acetaminophen 650 mg 08/21/24 19:43 08/21/24 19:58 Acetaminophen 325 Mg Tablet PO 09/18/24 17:49 650 mg Q6H PRN Administration Fever >100.3 or pain 1-3 Albuterol/Ipratropium 3 ml 08/19/24 19:00 08/22/24 07:24 Albuterol/Ipratropium (Duoneb) Rt Lo 3 Ml Nebu INH 09/18/24 18:59 3 ml Q6HRRT TEE Administration Docusate Sodium 100 mg 08/19/24 17:55 Docusate Sod 100 Mg Capsule PO 09/18/24 17:54 QDAY PRN CONSTIPATION Protocol Fondaparinux 7.5 mg 08/20/24 13:45 08/22/24 09:29 Fondaparinux 2.5 Mg/0.5 Ml Syrg (Non-Formulary) SC 09/03/24 13:44 7.5 mg QDAY TEE Administration Sodium Chloride 1,000 mls @ 100 mls/hr 08/19/24 18:00 08/22/24 09:26 Ns IV 09/18/24 17:59 100 mls/hr .Q10H TEE Administration Ceftriaxone Sodium/Dextrose 2 gm in 50 mls @ 100 mls/hr 08/20/24 14:00 08/21/24 13:34 Rocephin/D5w 2gm IV 08/27/24 13:59 100 mls/hr QDAY@1400 TEE Administration Azithromycin 500 mg/ Sodium 250 mls @ 250 mls/hr 08/20/24 14:00 08/22/24 13:46 Chloride IV 08/27/24 13:59 250 mls/hr QDAY@1400 TEE Administration Methylprednisolone Sodium 266 mls @ 266 mls/hr 08/20/24 13:45 08/22/24 09:30 Succinate 1,000 mg/ Sodium IV 08/23/24 13:44 266 mls/hr Chloride QDAY TEE Administration Metoclopramide HCl 10 mg 08/19/24 17:50 Metoclopramide Inj 5 Mg/Ml Vial 2 Ml IVP 09/18/24 17:49 Q6H PRN NAUSEA OR VOMITING Protocol Nicotine 7 mg 08/21/24 13:00 08/22/24 09:28 Nicotine Patch 7 Mg/24 Hr Patch.Td24 TOP 09/20/24 12:59 7 mg QDAY TEE Administration Pantoprazole Sodium 40 mg 08/20/24 09:00 08/22/24 09:29 Pantoprazole Inj 40 Mg Vial IVP 09/19/24 08:59 40 mg QDAY TEE Administration Pharmacy Consult 1 each 08/19/24 21:07 Pharmacy To Consult Pneumovacc XX 09/18/24 21:06 PRN PRN CONSULT Plan 78-year-old male with past medical history of hypertension, GERD, severe osteoarthritis of bilateral knees, and current smoker who was brought to ED from home for symptoms of altered mental status and hypoxia, subsequently admitted for community acquired pneumonia and later found to have acute PE, thus Cardiology was consulted. #Acute pulmonary emboli right pulmonary artery branches #Pulmonary infarction right base #Occlusive deep vein thrombus left superficial femoral and popliteal veins Provoked likely secondary to significant bedbound status in the last several months as described by the family. Patient at present appears stable on room air, no evidence of right heart strain. 08/19/2024 L venous doppler showed extensive occlusive deep vein thrombus involving the left superficial femoral and popliteal veins. 08/21/2024 CTA chest showed multiple pulmonary artery emboli right pulmonary artery branches, pulmonary infarction of the right base. 08/21/2024 Echo showed normal LV size and function. Estimated EF 50%. RV is normal in size and systolic function. Estimated RVSP, 42 mmHg. RAP 15. LA cavity size is mildly increased. [id number] MR. There is mild TR. Dilated IVC. Plan: -No need for thrombectomy intervention given size of PE, hemodynamically stable, and no evidence of right heart strain -Chemical anticoagulation is stopped due to upper extremity bleeding -Recommend IVC filter placement due to source left leg DVT -Patient placed NPO after midnight, family updated Rest of conditions to continue current management per primary team: #Acute metabolic encephalopathy #History of dementia #Community acquired pneumonia #Thrombocytopenia #Chronic normocytic anemia #Current tobacco abuse Cardiology will continue to follow. Patient was discussed with the attending, Dr. Yanez. Thank you for allowing us to participate in the care of this patient. Elif Leonard, PGY-2
[2024-08-22] MEDS: cefTRIAXone/D5w 2gm 2 GM/50 ML BAG IV (15:42)
--- NOTE | 2024-08-22 19:56 | PD.RESPRO ---
Documentation for date of: 08/22/24 Subjective Subjective Interval history: Patient examined at bedside. No major events overnight. Patient is still nonverbal but opens eyes to sternal rub. Vitals are stable,CBC shows worsening leukocytosis from 8 to 18.8, platelets down trended to 47. Blood cultures are still pending. Echo showed EF 50% no evidence of heart strain. Cardiology was consulted for PE/DVT. Stated that patient is not a candidate for thrombectomy as there is no evidence of right heart strain. Order was placed by cardiology team for patient to get IVC filter tomorrow. Today's fondaparinux dose was held due to patient's excessive bleeding. Will continue dexamethasone 1 g for 1 more day and monitor platelets. Exam Vital Signs Temp Pulse Resp BP Pulse Ox O2 Del Method O2 Flow Rate 96.2 F L 86 16 102/71 100 Room Air 0.5 08/22/24 16:00 08/22/24 18:40 08/22/24 18:40 08/22/24 16:00 08/22/24 18:40 08/22/24 16:00 08/21/24 08:00 Narrative Exam Constitutional: Frail looking elderly, in no acute distress, lying in bed, hard of hearing HEENT: NCAT, EOMI, reactive round pupils b/l, patent nares b/l, moist mucous membranes Lung: Distant breath sounds on L side, no wheezing, no rhonchi Heart: Regular S1S2, no murmurs, gallops, or rubs Abdomen: Soft, non-distended, non-tender, bowel sounds present throughout Extremities: No cyanosis, clubbing, edema of LLE compared to right/cold, retracts due to pain in LE Neurologic: AOx1, unable to perform the rest due to mentation Skin: Warm, dry, purpura noticed throughout body. b/L whole arms dusky, loose skin on extremities and back, sites of IV extravasation Objective Labs 08/22/24 08:20 08/22/24 08:20 Labs: Laboratory Results - last 24 hr 08/22/24 08:20 WBC 18.8 H D RBC 3.20 L Hgb 10.7 L Hct 28.7 L MCV 90 MCH 33.4 MCHC 37.3 H RDW Std Deviation 45.1 H Plt Count 47 L D Neut % (Auto) 94 H Lymph % (Auto) 4 L [place] % (Auto) 2 Eos % (Auto) 0 Baso % (Auto) 0 Neut # (Auto) 17.7 H Lymph # (Auto) 0.7 L [place] # (Auto) 0.3 Eos # (Auto) 0.0 Baso # (Auto) 0.0 Immature Gran # (Auto) 0.10 H Absolute Nucleated RBC 0.00 Immature Gran % 1 H Nucleated RBC % 0 Sodium 136 Potassium 3.6 Chloride 105 Carbon Dioxide 22.4 Anion Gap 9 BUN 12 Creatinine 0.6 Estim Creat Clear Calc 110.7 eGFR > 60 BUN/Creatinine Ratio 20 Glucose 123 H Calculated Osmolality 272 L Calcium 7.5 L Corrected Calcium 8.7 Phosphorus 2.8 Magnesium 2.3 Total Bilirubin 0.6 AST 18 ALT 14 Alkaline Phosphatase 107 Total Protein 5.1 L Albumin 2.5 L Globulin 2.6 Albumin/Globulin Ratio 1.0 L Misc Test Result Platelets confirmed ABG Interpretation ABG results: 08/21/24 01:20 ABG pH 7.45 ABG pCO2 34 ABG pO2 71 L ABG HCO3 24 ABG O2 Saturation 94 ABG Base Excess 0 Quality Measures Quality Measures none Advance care planning discussed with:: child Assessment & Plan Assessment Current Active Medications: Generic Name Dose Route Start Last Admin Trade Name Freq PRN Reason Stop Dose Admin Acetaminophen 650 mg 08/21/24 19:43 08/21/24 19:58 Acetaminophen 325 Mg Tablet PO 09/18/24 17:49 650 mg Q6H PRN Administration Fever >100.3 or pain 1-3 Albuterol/Ipratropium 3 ml 08/19/24 19:00 08/22/24 18:40 Albuterol/Ipratropium (Duoneb) Rt Lo 3 Ml Nebu INH 09/18/24 18:59 3 ml Q6HRRT TEE Administration Docusate Sodium 100 mg 08/19/24 17:55 Docusate Sod 100 Mg Capsule PO 09/18/24 17:54 QDAY PRN CONSTIPATION Protocol Sodium Chloride 1,000 mls @ 100 mls/hr 08/19/24 18:00 08/22/24 09:26 Ns IV 09/18/24 17:59 100 mls/hr .Q10H TEE Administration Ceftriaxone Sodium/Dextrose 2 gm in 50 mls @ 100 mls/hr 08/20/24 14:00 08/22/24 15:42 Rocephin/D5w 2gm IV 08/27/24 13:59 100 mls/hr QDAY@1400 TEE Administration Azithromycin 500 mg/ Sodium 250 mls @ 250 mls/hr 08/20/24 14:00 08/22/24 13:46 Chloride IV 08/27/24 13:59 250 mls/hr QDAY@1400 TEE Administration Methylprednisolone Sodium 266 mls @ 266 mls/hr 08/20/24 13:45 08/22/24 09:30 Succinate 1,000 mg/ Sodium IV 08/23/24 13:44 266 mls/hr Chloride QDAY TEE Administration Metoclopramide HCl 10 mg 08/19/24 17:50 Metoclopramide Inj 5 Mg/Ml Vial 2 Ml IVP 09/18/24 17:49 Q6H PRN NAUSEA OR VOMITING Protocol Nicotine 7 mg 08/21/24 13:00 08/22/24 09:28 Nicotine Patch 7 Mg/24 Hr Patch.Td24 TOP 09/20/24 12:59 7 mg QDAY TEE Administration Pantoprazole Sodium 40 mg 08/20/24 09:00 08/22/24 09:29 Pantoprazole Inj 40 Mg Vial IVP 09/19/24 08:59 40 mg QDAY TEE Administration Pharmacy Consult 1 each 08/19/24 21:07 Pharmacy To Consult Pneumovacc XX 09/18/24 21:06 PRN PRN CONSULT Plan Matthew Perez is 78 y/o male patient with significant medical history for hypertension, GERD, severe osteoarthritis of bilateral knees and current smoker was brought to ED from home for symptoms of altered mental status and hypoxia. Patient admitted for AMS and PNA. #Acute encephalopathy likely due to #Pneumonia #Possible aspiration Patient with AMS for x1 day Patient also endorsing intermittent cough CXR showed diffuse left-sided infiltrate Plan: -Neurocheck Q4H -IV abx Azithro and Rocephin -repeat Blood culture pending -DuoNebs Q6H -Tylenol for fever -Aspiration precaution #DVT #Pulmonary embolism #Thrombocytopenia Patient immobile for last few months On physical exam LLE edematous compared to right Platelets decreased from 300K to 59K since May 2024 Wells score of 4.5 points, 16.2% chance of PE Venous doppler positive for DVT in left superficial femoral and popliteal veins. platelets further dropped from 56-->49-->29 CT angio chest positive for PE LDH 112 (low), retic count 0.3% (low), fibrinogen 132 (low) Echo normal LV size and function. Estimated EF 50%. RV is normal in size and systolic function. Estimated RVSP, 42 mmHg. RAP 15. LA cavity size is mildly increased. [id number] MR. There is mild TR. Dilated IVC. Plan: -cardiology consulted: pt will get IVC filter tomorrow. -hold heparin products - smear, haptoglobin, pending -continue dexamethasone 1 g daily for empiric treatment for ITP -hold fondaparinux 7.5mgSC daily for PE treatment due to UE bleeding -Follow up CBC #Hx of HTN #Hx of GERD Plan: -Currently BP WNL -Consider restarting home med after reconciliation -PPI prophylaxis Health Maintenance Dispo: abx, DVT, PE tx Diet: dysphagia after passing swallow eval DVT/PPx: no heparin, held fondparanux 7.5mg daily. IVC filter GI ppx: Protonix Lines: PIV Code Status: DNR The patient's management plan was discussed with my attending physician Dr. Driscoll. Kellen Cruz, PGY-1 Attending Provider Attestation/Addendum I have discussed and was present for the essential components of the history, physical examination, diagnosis, and treatment plan with the resident. I agree with the patient's care as documented by the resident and amended herein by me. Raghavendra Driscoll DO. Although this document has been carefully reviewed, there may still be some phonetic and other typographical errors. These errors are purely grammatical due to imperfections in the software program and should not be construed in any way to compromise the substance of the patient's medical care during this visit.
[2024-08-23] VITALS (16 sets, daily range): BP systolic 111–139; BP diastolic 69–95; PULSE 64–92; RESP 16–92; TEMP 35.9–36.1; O2SAT 92–100
--- NOTE | 2024-08-23 00:08 | PC.NURSE ---
Addendum entered by Gab Sargent RN 08/23/24 00:58: Per Dr. Kinsey, discontinue fluids. Addendum entered by Gab Sargent RN 08/23/24 00:16: Dr. Kinsey notified. Dr. Kinsey said she will look into the patients chart and call RN back weather if fluids should be stopped or continued. Original Note: Pt is running NS @ 100ml/hr. Pt is upper extremities, lower extremities, ankles, and foot are swollen. RN will contact hospitalists to ask if fluids should be continued or discontinued.
[2024-08-23] MEDS: ALBUTEROL/IPRATROPIUM (Duoneb) RT SOL 3 ML NEBU INH ×4 (00:40→18:50)
--- NOTE | 2024-08-23 08:00 | XR_ITS ---
Examination: Percutaneous placement retrievable inferior venacavogram filter Inferior venacavogram Fluoroscopy Selective catheterization inferior vena cava Ultrasound-guided venous access right common femoral vein. AP Abdomen, portable, 2 views Date: August 24, 2019 5:10 AM INDICATIONS: Venous Doppler August 19 2024 extensive occlusive deep vein thrombus involving the left lower extremity Informed consent provided. Time out performed Technique And Findings: Skin prepped over the right groin. 1 % Lidocaine administered for local anesthesia. Sterile drape applied. Maximum sterile barrier technique, hand hygiene, ultrasound sterile technique. Ultrasound utilized for localization right common femoral vein. Utilizing ultrasonographic guidance, puncture right common femoral vein with a 21-gauge needle. Placement 0.18 wire guide through the needle into the common femoral vein under fluoroscopic guidance. Placement 5 Kyrgyz introducer catheter over the wire guide. Core removed and 0.35 wire guide and placed in the IVC under fluoroscopic guidance. Percutaneous retrievable IVC filter deployment catheter then placed over the wire guide under fluoroscopic guidance to the level L4 level. Inferior venacavogram performed, hand injection 20 cc Isovue 300, serial filming 2 frames per second with the [facility] digital subtraction apparatus Normal caliber inferior vena cava and normal position renal veins. Retrievable IVC filter then deployed below the renal veins and above the IVC bifurcation. No complications observed. Impression: Successful percutaneous placement retrievable IVC filter Normal inferior vena cavogram. Selective catheterization inferior vena cava. Successful ultrasound-guided venous access right common femoral vein. Fluoroscopy 0.2 minute radiation dose 26.11 milligray 2 spot fluoroscopic abdomen films. AP abdomen completion procedure demonstrates satisfactory position IVC filter.
--- NOTE | 2024-08-23 08:41 | XR_ITS ---
Examination: AP chest single view Technique one AP portable semiupright chest single view Exam date and time: August 23, 2024 0904 hours Comparison August 21, 2024 FINDINGS: Prominent left pleural effusion Atelectasis and/or pneumonia throughout the left lung with volume loss Mild to moderate right pleural fluid Mild pneumonia right base IMPRESSION: Recommend ultrasound hemithoraces to confirm prominent left pleural effusion Atelectasis left lung with pneumonia Mild pneumonia right base
[2024-08-23] MEDS: PANTOPRAZOLE INJ 40 MG VIAL IVP (09:50)
[2024-08-23] MEDS: NICOTINE PATCH 7 MG/24 HR PATCH.TD24 TOP (09:50)
[2024-08-23] MEDS: fentaNYL CIT INJ 50 mCg/ML AMP 2ML 25 MCG IVP (11:01)
[2024-08-23] MEDS: HEPARIN SOD LOCK SYR 100 UNIT/ML 500 UNIT STFIELD (11:02)
[2024-08-23] MEDS: LIDOCAINE INJ PF 1% 30 ML VIAL 6 ML EPID (11:02)
--- NOTE | 2024-08-23 11:18 | PC.SS ---
SS spoke to pt dtr, Ericka Perez, phone# [phone] in regards to DC plan and SNF choices. Ericka #1 is [facility] and #2 is [facility]. SS reached out to Rosita at [facility] who stated they can accept pt today. SS pending update from team if pt is DC ready.
[2024-08-23] MEDS: MethylPREDNISolone. 1,000 MG in SODIUM CHLORIDE 0.9% 250 ML 250 ML 266 MG IV (13:27)
--- NOTE | 2024-08-23 13:58 | ESPR_ITS ---
<Statement entered by Neeta Yanez MD - 08/28/24 08:30> I evaluated the patient with the resident physician Dr. Laure Leonard, PGY 2 appears to be doing better underwent IVC filter placement anticoagulation was held because of excessive bleeding may consider Eliquis. Overall prognosis poor patient is overall condition not doing that well evaluate the patient with resident physician agree with the treatment plan recommendations Documentation for date of: 08/23/24 Subjective Subjective Interval history: No acute events overnight.?Patient seen and examined at bedside this afternoon following IR procedure, IVC filter placed successfully this morning. Patient mental status remains the same, he is responsive to voice and name but non- verbal. Patient's sisters at bedside report that he may have some improvement after he gets his hearing aids repaired. Otherwise plan is for discharge to SNF, patient has been accepted at [facility]. Vitals have been hemodynamically stable overnight, no labs drawn this morning, may be related to significant edema and difficult draw sites. Patient does not seem to be endorsing pain or discomfort. Review of systems otherwise negative except what is mentioned above. Exam Vital Signs Temp Pulse Resp BP Pulse Ox O2 Del Method O2 Flow Rate 96.9 F 70 18 139/87 H 97 Nasal Cannula 2 08/23/24 08:00 08/23/24 13:00 08/23/24 13:00 08/23/24 11:14 08/23/24 13:00 08/23/24 11:14 08/23/24 11:14 Narrative Exam Physical Exam General: Awake, localizes to voice, makes eye contact but unable to answer any questions, making sounds instead. HEENT: Normocephalic, atraumatic, mucous membranes moist. Heart: Regular rate and rhythm, normal S1 and S2, no murmurs. Lungs: Clear to auscultation with no wheezing or crackles. Abdomen: Soft, obese, nondistended, nontender, positive bowel sounds. ?No guarding or rebound tenderness. Neurologic: Alert and oriented x0, no gross neurological deficit, and patient able to move all 4 extremities. Follows only some commands. Extremities: Bilateral lower extremity edema L>R. Worsening 3+ left leg pitting edema, 2+ right pitting edema. Skin: Bilateral upper extremities with significant ecchymoses and extravasation sites, open bleeding skin tear 1.5 cm left dorsal hand. Non-pitting significant edema. Objective Labs 04/15/25 08:20 08/22/24 08:20 ABG Interpretation ABG results: 08/21/24 01:20 ABG pH 7.45 ABG pCO2 34 ABG pO2 71 L ABG HCO3 24 ABG O2 Saturation 94 ABG Base Excess 0 Quality Measures Quality Measures none Advance care planning discussed with:: patient and sibling Assessment & Plan Assessment Current Active Medications: Generic Name Dose Route Start Last Admin Trade Name Freq PRN Reason Stop Dose Admin Acetaminophen 650 mg 08/21/24 19:43 08/21/24 19:58 Acetaminophen 325 Mg Tablet PO 09/18/24 17:49 650 mg Q6H PRN Administration Fever >100.3 or pain 1-3 Albuterol/Ipratropium 3 ml 08/19/24 19:00 08/23/24 12:59 Albuterol/Ipratropium (Duoneb) Rt Lo 3 Ml Nebu INH 09/18/24 18:59 3 ml Q6HRRT TEE Administration Docusate Sodium 100 mg 08/19/24 17:55 Docusate Sod 100 Mg Capsule PO 09/18/24 17:54 QDAY PRN CONSTIPATION Protocol Ceftriaxone Sodium/Dextrose 2 gm in 50 mls @ 100 mls/hr 08/20/24 14:00 08/22/24 15:42 Rocephin/D5w 2gm IV 08/27/24 13:59 100 mls/hr QDAY@1400 TEE Administration Azithromycin 500 mg/ Sodium 250 mls @ 250 mls/hr 08/20/24 14:00 08/22/24 13:46 Chloride IV 08/27/24 13:59 250 mls/hr QDAY@1400 TEE Administration Metoclopramide HCl 10 mg 08/19/24 17:50 Metoclopramide Inj 5 Mg/Ml Vial 2 Ml IVP 09/18/24 17:49 Q6H PRN NAUSEA OR VOMITING Protocol Nicotine 7 mg 08/21/24 13:00 08/23/24 09:50 Nicotine Patch 7 Mg/24 Hr Patch.Td24 TOP 09/20/24 12:59 7 mg QDAY TEE Administration Pantoprazole Sodium 40 mg 08/20/24 09:00 08/23/24 09:50 Pantoprazole Inj 40 Mg Vial IVP 09/19/24 08:59 40 mg QDAY TEE Administration Pharmacy Consult 1 each 08/19/24 21:07 Pharmacy To Consult Pneumovacc XX 09/18/24 21:06 PRN PRN CONSULT Plan 78-year-old male with past medical history of hypertension, GERD, severe osteoarthritis of bilateral knees, and current smoker who was brought to ED from home for symptoms of altered mental status and hypoxia, subsequently admitted for community acquired pneumonia and later found to have acute PE, thus Cardiology was consulted. #Acute pulmonary emboli right pulmonary artery branches #Pulmonary infarction right base #Occlusive deep vein thrombus left superficial femoral and popliteal veins Provoked likely secondary to significant bedbound status in the last several months as described by the family. Patient at present appears stable on room air, no evidence of right heart strain. 08/19/2024 L venous doppler showed extensive occlusive deep vein thrombus involving the left superficial femoral and popliteal veins. 08/21/2024 CTA chest showed multiple pulmonary artery emboli right pulmonary artery branches, pulmonary infarction of the right base. 08/21/2024 Echo showed normal LV size and function. Estimated EF 50%. RV is normal in size and systolic function. Estimated RVSP, 42 mmHg. RAP 15. LA cavity size is mildly increased. [id number] MR. There is mild TR. Dilated IVC. 08/23/2024 IVC filter placement completed due to source left leg DVT Plan: -No need for thrombectomy intervention given size of PE, hemodynamically stable, and no evidence of right heart strain -Chemical anticoagulation is stopped due to upper extremity bleeding Rest of conditions to continue current management per primary team: #Acute metabolic encephalopathy #History of dementia #Community acquired pneumonia #Thrombocytopenia #Chronic normocytic anemia #Current tobacco abuse Cardiology will continue to follow. Patient was discussed with the attending, Dr. Yanez. Thank you for allowing us to participate in the care of this patient. Elif Leonard, PGY-2
[2024-08-23] MEDS: cefTRIAXone/D5w 2gm 2 GM/50 ML BAG IV (14:50)
[2024-08-23] MEDS: AZITHROMYCIN INJ 500 MG in SODIUM CHLORIDE 0.9% 250 ML 250 ML 250 MG IV (14:51)
--- NOTE | 2024-08-23 15:42 | PC.SS ---
Rounding: Pt receieved IVC Filter today for PE, 2-3 days before DC. DC plan is [facility].
--- NOTE | 2024-08-23 16:03 | PD.RESPRO ---
Documentation for date of: 08/23/24 Subjective Subjective Interval history: Patient examined at bedside. Overnight team stopped fluids after patient appeared to be volume overloaded on physical exam. S/p placement of IVC filter for DVT in setting of acute bleeding. Continuing to hold fondaparinux due to open wounds with active bleeding. Continue azithromycin and Rocefin for two more days in setting in PNA. Repeat blood cultures are pending. Monitor CBC closely to trend platelets. Exam Vital Signs Temp Pulse Resp BP Pulse Ox O2 Del Method O2 Flow Rate 96.9 F 70 18 139/87 H 97 Nasal Cannula 2 08/23/24 08:00 08/23/24 13:00 08/23/24 13:00 08/23/24 11:14 08/23/24 13:00 08/23/24 11:14 08/23/24 11:14 Narrative Exam Constitutional: Frail looking elderly, in no acute distress, lying in bed, hard of hearing HEENT: NCAT, EOMI, reactive round pupils b/l, patent nares b/l, moist mucous membranes Lung: Distant breath sounds on L side, no wheezing, no rhonchi Heart: Regular S1S2, no murmurs, gallops, or rubs Abdomen: Soft, non-distended, non-tender, bowel sounds present throughout Extremities: No cyanosis, clubbing, edema of LLE compared to right/cold, retracts due to pain in LE Neurologic: AOx1, unable to perform the rest due to mentation Skin: open wounds with bleeding on b/l hands, purpura noticed throughout body. b/L whole arms dusky, loose skin on extremities and back, sites of IV extravasation Objective Labs 08/24/24 12:22 08/24/24 05:40 ABG Interpretation ABG results: 08/21/24 01:20 ABG pH 7.45 ABG pCO2 34 ABG pO2 71 L ABG HCO3 24 ABG O2 Saturation 94 ABG Base Excess 0 Quality Measures Quality Measures none Advance care planning discussed with:: child Assessment & Plan Assessment Current Active Medications: Generic Name Dose Route Start Last Admin Trade Name Freq PRN Reason Stop Dose Admin Acetaminophen 650 mg 08/21/24 19:43 08/21/24 19:58 Acetaminophen 325 Mg Tablet PO 09/18/24 17:49 650 mg Q6H PRN Administration Fever >100.3 or pain 1-3 Albuterol/Ipratropium 3 ml 08/19/24 19:00 08/23/24 12:59 Albuterol/Ipratropium (Duoneb) Rt Lo 3 Ml Nebu INH 09/18/24 18:59 3 ml Q6HRRT TEE Administration Docusate Sodium 100 mg 08/19/24 17:55 Docusate Sod 100 Mg Capsule PO 09/18/24 17:54 QDAY PRN CONSTIPATION Protocol Ceftriaxone Sodium/Dextrose 2 gm in 50 mls @ 100 mls/hr 08/20/24 14:00 08/23/24 14:50 Rocephin/D5w 2gm IV 08/27/24 13:59 100 mls/hr QDAY@1400 TEE Administration Azithromycin 500 mg/ Sodium 250 mls @ 250 mls/hr 08/20/24 14:00 08/23/24 14:51 Chloride IV 08/27/24 13:59 250 mls/hr QDAY@1400 TEE Administration Metoclopramide HCl 10 mg 08/19/24 17:50 Metoclopramide Inj 5 Mg/Ml Vial 2 Ml IVP 09/18/24 17:49 Q6H PRN NAUSEA OR VOMITING Protocol Nicotine 7 mg 08/21/24 13:00 08/23/24 09:50 Nicotine Patch 7 Mg/24 Hr Patch.Td24 TOP 09/20/24 12:59 7 mg QDAY TEE Administration Pantoprazole Sodium 40 mg 08/20/24 09:00 08/23/24 09:50 Pantoprazole Inj 40 Mg Vial IVP 09/19/24 08:59 40 mg QDAY TEE Administration Pharmacy Consult 1 each 08/19/24 21:07 Pharmacy To Consult Pneumovacc XX 09/18/24 21:06 PRN PRN CONSULT Plan Matthew Perez is 78 y/o male patient with significant medical history for hypertension, GERD, severe osteoarthritis of bilateral knees and current smoker was brought to ED from home for symptoms of altered mental status and hypoxia. Patient admitted for AMS and PNA. #Acute encephalopathy likely due to #Pneumonia #Possible aspiration Patient with AMS for x1 day Patient also endorsing intermittent cough CXR showed diffuse left-sided infiltrate Plan: -Neurocheck Q4H -IV abx Azithro and Rocephin for two more days -repeat Blood culture pending -DuoNebs Q6H -Tylenol for fever -Aspiration precaution #DVT #Pulmonary embolism #Thrombocytopenia #s/p IVC filter Patient immobile for last few months On physical exam LLE edematous compared to right Platelets decreased from 300K to 59K since May 2024 Wells score of 4.5 points, 16.2% chance of PE Venous doppler positive for DVT in left superficial femoral and popliteal veins. platelets further dropped from 56-->49-->29 CT angio chest positive for PE LDH 112 (low), retic count 0.3% (low), fibrinogen 132 (low) Echo normal LV size and function. Estimated EF 50%. RV is normal in size and systolic function. Estimated RVSP, 42 mmHg. RAP 15. LA cavity size is mildly increased. [id number] MR. There is mild TR. Dilated IVC. Plan: -cardiology consulted: pt had IVC filter placed today due to DVT and setting of active bleeding. -hold heparin products - smear, haptoglobin, pending -Methylprednisone 1g three day course completed for empiric treatment for ITP -hold fondaparinux 7.5mgSC daily for PE treatment due to active bleeding -Follow up CBC #Hx of HTN #Hx of GERD Plan: -Currently BP WNL -Consider restarting home med after reconciliation -PPI prophylaxis Health Maintenance Dispo: abx, DVT, PE tx Diet: dysphagia after passing swallow eval DVT/PPx: no heparin, held fondparanux 7.5mg daily. IVC filter GI ppx: Protonix Lines: PIV Code Status: DNR The patient's management plan was discussed with my attending physician Dr. Driscoll. Kellen Cruz, PGY-1 Attending Provider Attestation/Addendum I have discussed and was present for the essential components of the history, physical examination, diagnosis, and treatment plan with the resident. I agree with the patient's care as documented by the resident and amended herein by me. Raghavendra Driscoll DO. Although this document has been carefully reviewed, there may still be some phonetic and other typographical errors. These errors are purely grammatical due to imperfections in the software program and should not be construed in any way to compromise the substance of the patient's medical care during this visit.
[2024-08-23 16:32] LABS: Basophils % (Auto) 0 % (0-2.5); Eosinophils % (Auto) 0 % (0-10); Hematocrit 25.2 % (41.0-53.0); Hemoglobin 9.5 g/dL (13.5-16.0); Immature Granulocytes % (Auto) 0 % (0-0); Immature Granulocytes Auto 0.06 Thou/mm3 (0.00-0.00); Lymphocytes # (Auto) 0.4 Thou/mm3 (1.0-4.8); Lymphocytes % (Auto) 2 % (10-50); Mean Corpuscular HGB Conc 37.7 g/dl (31.0-37.0); Mean Corpuscular Hemoglobin 33.9 pg (25.0-35.0); Mean Corpuscular Volume 90 fL (80-100); Monocytes # (Auto) 0.2 Thou/mm3 (0.0-0.8); Monocytes % (Auto) 2 % (0-12); Neutrophils # (Auto) 13.8 Thou/mm3 (1.8-7.7); Neutrophils % (Auto) 96 % (37-80); Nucleated Red Blood Cell % 0 /100 WBC (0); RDW Standard Deviation 46.2 fL (35.1-43.9); White Blood Count 14.5 Thou/mm3 (3.8-10.6)
[2024-08-23 16:33] LABS: Platelet Count 29 Thou/mm3 (140-440)
[2024-08-23 16:54] LABS: Alanine Aminotransferase 16 U/L (10-49); Albumin, Serum 2.1 gm/dL (3.4-4.8); Alkaline Phosphatase 95 U/L (46-116); Anion Gap 9 (7-16); Aspartate Amino Transferase 23 U/L (0-34); BUN/Creatinine Ratio 20 Ratio (12-20); Bilirubin,Total 0.6 mg/dL (0.3-1.2); Blood Urea Nitrogen 16 mg/dL (9-23); Calcium (Corrected) 8.5 mg/dL (8.5-10.1); Chloride 108 mMol/L (98-107); Creatinine (Component) 0.8 mg/dL (0.6-1.3); Estimated Creatinine Clearance 81.6 mL/min (>60); Globulin 2.2 gm/dL (2.3-3.5); Glucose 137 mg/dL (74-106); Osmolality,Calculated 278 (275-295); Potassium 3.7 mMol/L (3.4-5.1); Sodium 138 mMol/L (136-145); Total Protein 4.3 gm/dL (5.7-8.2); eGFR > 60 See Note
[2024-08-23 17:52] LABS: Slide Review Platelets confirmed
--- NOTE | 2024-08-23 22:58 | XR_ITS ---
Examination: Abdomen AP single view Technique: AP portable supine abdomen, single view Exam date and time: August 23, 2024 11:23 PM Indications: Onset abdominal pain today. Findings: Multiple air distended small bowel loops Contrast in the bladder No free air detected Impression: Multiple air distended small bowel loops, differential would include small bowel obstruction, clinical correlation advised
--- NOTE | 2024-08-23 22:58 | XR_ITS ---
Examination: Ultrasound soft tissue extremity right groin Technique: Grayscale sonographic images soft tissue right groin Exam date and time: August 24, 2024 0024 hrs. Indications: Status post IVC filter placement August 23, 2024 Findings: No right groin hematoma or pseudoaneurysm Impression: No right groin hematoma or pseudoaneurysm
--- NOTE | 2024-08-23 22:58 | XR_ITS ---
Examination: AP chest single view Technique one AP portable upright chest single view Exam date and time: August 23, 2024 11:30 PM Comparison August 23, 2024 0904 hrs. Indications: Shortness of breath today. Findings: Extensive left lung pneumonia Large left pleural effusion Atelectasis versus mild pneumonia right base Intact osseous structures Impression: Extensive left lung pneumonia Large left pleural effusion
[2024-08-24] VITALS (12 sets, daily range): BP systolic 80–132; BP diastolic 47–82; PULSE 50–120; RESP 10–95; TEMP 32.3–36.1; O2SAT 88–98
[2024-08-24] MEDS: ALBUTEROL/IPRATROPIUM (Duoneb) RT SOL 3 ML NEBU INH ×3 (00:08→12:36)
[2024-08-24] MEDS: KETOROLAC INJ 30 MG/ML VIAL 15 MG IVP (00:36)
[2024-08-24 06:41] LABS: Alanine Aminotransferase 24 U/L (10-49); Albumin, Serum 2.4 gm/dL (3.4-4.8); Alkaline Phosphatase 110 U/L (46-116); Anion Gap 11 (7-16); Aspartate Amino Transferase 36 U/L (0-34); BUN/Creatinine Ratio 22 Ratio (12-20); Bilirubin,Total 0.9 mg/dL (0.3-1.2); Blood Urea Nitrogen 20 mg/dL (9-23); Calcium 7.5 mg/dL (8.3-10.6); Calcium (Corrected) 8.8 mg/dL (8.5-10.1); Carbon Dioxide 19.6 mMol/L (20.0-31.0); Chloride 108 mMol/L (98-107); Creatinine (Component) 0.9 mg/dL (0.6-1.3); Estimated Creatinine Clearance 72.5 mL/min (>60); Globulin 2.4 gm/dL (2.3-3.5); Glucose 119 mg/dL (74-106); LDH (Lactate Dehydrogenase) 245 U/L (120-246); Osmolality,Calculated 281 (275-295); Potassium 3.8 mMol/L (3.4-5.1); Sodium 139 mMol/L (136-145); Total Protein 4.8 gm/dL (5.7-8.2); eGFR > 60 See Note
[2024-08-24 07:37] LABS: Basophils % (Auto) 0 % (0-2.5); Eosinophils % (Auto) 0 % (0-10); Hematocrit 28.4 % (41.0-53.0); Hemoglobin 10.7 g/dL (13.5-16.0); Immature Granulocytes % (Auto) 0 % (0-0); Immature Granulocytes Auto 0.06 Thou/mm3 (0.00-0.00); Lymphocytes # (Auto) 0.5 Thou/mm3 (1.0-4.8); Lymphocytes % (Auto) 3 % (10-50); Mean Corpuscular HGB Conc 37.7 g/dl (31.0-37.0); Mean Corpuscular Hemoglobin 33.9 pg (25.0-35.0); Mean Corpuscular Volume 90 fL (80-100); Monocytes # (Auto) 0.2 Thou/mm3 (0.0-0.8); Monocytes % (Auto) 1 % (0-12); Neutrophils # (Auto) 16.3 Thou/mm3 (1.8-7.7); Neutrophils % (Auto) 96 % (37-80); Nucleated Red Blood Cell # 0.03 Thou/mm3 (0.00-0.00); Nucleated Red Blood Cell % 0 /100 WBC (0); RDW Standard Deviation 45.1 fL (35.1-43.9); Red Blood Count 3.16 Miln/mm3 (4.50-5.90); White Blood Count 17.1 Thou/mm3 (3.8-10.6)
[2024-08-24 07:40] LABS: Platelet Count 25 Thou/mm3 (140-440)
[2024-08-24 08:01] LABS: Vitamin B12 1397 pg/mL (211-911)
--- NOTE | 2024-08-24 08:03 | XR_ITS ---
Examination: Abdomen sonogram, complete Date and time of exam: August 24, 2024 0831 hours INDICATIONS: Clinical diagnosis splenomegaly, history abdominal pain. Technique: Multiple real-time grayscale transabdominal sonographic images of the abdomen have been obtained. Findings: No diagnostic visualization gallbladder Common bile 0.2 cm Pancreas aorta obscured by bowel gas Liver 15 cm irregular contour Mild ascites Normal hepatopedal portal venous flow Patent IVC Right kidney 9.7 cm cortex 1.1 cm Moderate renal parenchymal scar formation Left kidney spleen obscured by bowel gas IMPRESSION: Limited study Cirrhosis Moderate right renal parenchymal scar formation
[2024-08-24] MEDS: PIPER/TAZO INJ 4.5 GM in SODIUM CHLORIDE 0.9% (POP) 100 ML IV (09:05)
[2024-08-24] MEDS: NICOTINE PATCH 7 MG/24 HR PATCH.TD24 TOP (09:06)
[2024-08-24] MEDS: PANTOPRAZOLE INJ 40 MG VIAL IVP (09:06)
[2024-08-24 09:25] LABS: Slide Review Platelets confirmed
[2024-08-24 09:26] LABS: Hepatitis A Antibody IgM Non Reactive (Non React); Hepatitis B Core Antibody IgM Non Reactive (Non React); Hepatitis B Surface Antigen Non Reactive (Non React); Hepatitis C Antibody Non Reactive (Non React)
[2024-08-24 09:58] LABS: HIV (1&2) Antibody Rapid Non-Reactive
--- NOTE | 2024-08-24 10:40 | PC.SS ---
Rounding: Platletts are low, on IV ABX, DC plan remains RWCC once pt is stable
[2024-08-24 12:56] LABS: Misc Send Out* See Sep Rpt
--- NOTE | 2024-08-24 14:11 | ESPR_ITS ---
<Statement entered by Neeta Yanez MD - 08/28/24 08:31> I personally examined the patient evaluated the patient patient's not doing that well patient made into DNR status and comfort care agree with treatment plan recommendation as documented PGY 2 Dr. Laure Leonard agree with the teams of recommendation as to comfort care because of poor prognosis. The patient has severe thrombocytopenia anticoagulation is relatively contraindicated already had IVC filter placed Documentation for date of: 08/24/24 Subjective Subjective Interval history: No acute events overnight.?Patient seen and examined at bedside this AM. No family at bedside at this time.?Patient continues to be nonverbal, but arousable to voice and makes eye contact. Patient continues to have weeping of the arms and some bloody leakage around skin tears. Left leg appears to have progressive increased swelling. Labs and vitals were reviewed. Patient was noted to be on oxygen at about 2-3 L increased from the previous days when he had been saturating well on room air. BP remained stable. Platelet levels unfortunately continue to drop again, this morning at 25k. Hgb level however is stable at 10.7. We will hold off on any anticoagulation at this time. Primary team is consulting hematology, patient has additional studies pending for HIT workup and DIC. Review of systems otherwise negative except what is mentioned above. Exam Vital Signs Temp Pulse Resp BP Pulse Ox O2 Del Method O2 Flow Rate 90.6 F L 50 L 10 L 80/47 L 88 L Nasal Cannula 10 08/24/24 20:00 08/24/24 20:00 08/24/24 20:00 08/24/24 20:00 08/24/24 20:00 08/24/24 11:44 08/24/24 15:16 Narrative Exam Physical Exam General: Awake, localizes to voice, makes eye contact but unable to answer any questions, making sounds instead. HEENT: Normocephalic, atraumatic, mucous membranes moist. Heart: Regular rate and rhythm, normal S1 and S2, no murmurs. Lungs: Clear to auscultation with no wheezing or crackles. Abdomen: Soft, obese, nondistended, nontender, positive bowel sounds. ?No guarding or rebound tenderness. Neurologic: Alert and oriented x0, no gross neurological deficit, and patient able to move all 4 extremities. Follows only some commands. Extremities: Bilateral lower extremity edema L>R. Worsening 4+ left leg pitting edema, 2+ right pitting edema. Skin: Bilateral upper extremities with significant ecchymoses and extravasation sites, open bleeding skin tear 1.5 cm left dorsal hand with steri-strips. Non- pitting significant edema. Objective Labs 08/24/24 12:22 08/24/24 05:40 Labs: Laboratory Results - last 24 hr 08/24/24 08/24/24 08/24/24 12:22 14:18 15:13 WBC 16.1 H RBC 3.10 L Hgb 10.4 L Hct 28.5 L MCV 92 MCH 33.5 MCHC 36.5 RDW Std Deviation 46.4 H Plt Count 29 L* Neut % (Auto) 95 H Lymph % (Auto) 3 L Titus % (Auto) 2 Eos % (Auto) 0 Baso % (Auto) 0 Neut # (Auto) 15.2 H Lymph # (Auto) 0.5 L Titus # (Auto) 0.3 Eos # (Auto) 0.0 Baso # (Auto) 0.0 Immature Gran # (Auto) 0.10 H Absolute Nucleated RBC 0.03 H Immature Gran % 1 H Nucleated RBC % 0 PT 13.1 H INR 1.2 APTT 35.0 Fibrinogen 111 L D-Dimer 1020 H Lactic Acid 5.8 H* Coccidioides IgM Ab Negative Misc Test Result Platelets confirmed ABG Interpretation ABG results: 08/21/24 01:20 ABG pH 7.45 ABG pCO2 34 ABG pO2 71 L ABG HCO3 24 ABG O2 Saturation 94 ABG Base Excess 0 Quality Measures Quality Measures none Advance care planning discussed with:: patient and child Assessment & Plan Assessment Current Active Medications: Generic Name Dose Route Start Last Admin Trade Name Freq PRN Reason Stop Dose Admin Acetaminophen 650 mg 08/21/24 19:43 08/21/24 19:58 Acetaminophen 325 Mg Tablet PO 09/18/24 17:49 650 mg Q6H PRN Administration Fever >100.3 or pain 1-3 Albuterol/Ipratropium 3 ml 08/19/24 19:00 08/23/24 12:59 Albuterol/Ipratropium (Duoneb) Rt Lo 3 Ml Nebu INH 09/18/24 18:59 3 ml Q6HRRT TEE Administration Docusate Sodium 100 mg 08/19/24 17:55 Docusate Sod 100 Mg Capsule PO 09/18/24 17:54 QDAY PRN CONSTIPATION Protocol Ceftriaxone Sodium/Dextrose 2 gm in 50 mls @ 100 mls/hr 08/20/24 14:00 08/22/24 15:42 Rocephin/D5w 2gm IV 08/27/24 13:59 100 mls/hr QDAY@1400 TEE Administration Azithromycin 500 mg/ Sodium 250 mls @ 250 mls/hr 08/20/24 14:00 08/22/24 13:46 Chloride IV 08/27/24 13:59 250 mls/hr QDAY@1400 TEE Administration Metoclopramide HCl 10 mg 08/19/24 17:50 Metoclopramide Inj 5 Mg/Ml Vial 2 Ml IVP 09/18/24 17:49 Q6H PRN NAUSEA OR VOMITING Protocol Nicotine 7 mg 08/21/24 13:00 08/23/24 09:50 Nicotine Patch 7 Mg/24 Hr Patch.Td24 TOP 09/20/24 12:59 7 mg QDAY TEE Administration Pantoprazole Sodium 40 mg 08/20/24 09:00 08/23/24 09:50 Pantoprazole Inj 40 Mg Vial IVP 09/19/24 08:59 40 mg QDAY TEE Administration Pharmacy Consult 1 each 08/19/24 21:07 Pharmacy To Consult Pneumovacc XX 09/18/24 21:06 PRN PRN CONSULT Plan 78-year-old male with past medical history of hypertension, GERD, severe osteoarthritis of bilateral knees, and current smoker who was brought to ED from home for symptoms of altered mental status and hypoxia, subsequently admitted for community acquired pneumonia and later found to have acute PE, thus Cardiology was consulted. #Acute pulmonary emboli right pulmonary artery branches #Pulmonary infarction right base #Occlusive deep vein thrombus left superficial femoral and popliteal veins Provoked likely secondary to significant bedbound status in the last several months as described by the family. Patient at present appears stable on room air, no evidence of right heart strain. 08/19/2024 L venous doppler showed extensive occlusive deep vein thrombus involving the left superficial femoral and popliteal veins. 08/21/2024 CTA chest showed multiple pulmonary artery emboli right pulmonary artery branches, pulmonary infarction of the right base. 08/21/2024 Echo showed normal LV size and function. Estimated EF 50%. RV is normal in size and systolic function. Estimated RVSP, 42 mmHg. RAP 15. LA cavity size is mildly increased. [id number] MR. There is mild TR. Dilated IVC. No need for thrombectomy intervention given size of PE, hemodynamically stable, and no evidence of right heart strain 08/23/2024 IVC filter placement completed due to source left leg DVT Plan: -Patient not thrombectomy candidate at this time -Chemical anticoagulation is held due to upper extremity bleeding and severe thrombocytopenia -Agree with hematology consult Rest of conditions to continue current management per primary team: #Acute metabolic encephalopathy #History of dementia #Community acquired pneumonia #Thrombocytopenia #Chronic normocytic anemia #Current tobacco abuse Patient was discussed with the attending, Dr. Yanez. Thank you for allowing us to participate in the care of this patient. Elif Leonard, PGY-2
[2024-08-24 14:44] LABS: Basophils % (Auto) 0 % (0-2.5); Eosinophils % (Auto) 0 % (0-10); Hematocrit 28.5 % (41.0-53.0); Hemoglobin 10.4 g/dL (13.5-16.0); Immature Granulocytes % (Auto) 1 % (0-0); Lymphocytes # (Auto) 0.5 Thou/mm3 (1.0-4.8); Lymphocytes % (Auto) 3 % (10-50); Mean Corpuscular HGB Conc 36.5 g/dl (31.0-37.0); Mean Corpuscular Hemoglobin 33.5 pg (25.0-35.0); Mean Corpuscular Volume 92 fL (80-100); Monocytes # (Auto) 0.3 Thou/mm3 (0.0-0.8); Monocytes % (Auto) 2 % (0-12); Neutrophils # (Auto) 15.2 Thou/mm3 (1.8-7.7); Neutrophils % (Auto) 95 % (37-80); Nucleated Red Blood Cell # 0.03 Thou/mm3 (0.00-0.00); Nucleated Red Blood Cell % 0 /100 WBC (0); RDW Standard Deviation 46.4 fL (35.1-43.9); White Blood Count 16.1 Thou/mm3 (3.8-10.6)
[2024-08-24 14:52] LABS: Fibrinogen 111 mg/dL (175-375); INR 1.2 (0.9-1.3); Prothrombin Time 13.1 Seconds (9.0-12.2)
[2024-08-24 15:05] LABS: Platelet Count 29 Thou/mm3 (140-440)
[2024-08-24 15:30] LABS: D-Dimer 1020 ng/mL (<600)
[2024-08-24 15:37] LABS: Lactate (Lactic Acid) 5.8 mMol/L (0.4-2.0)
[2024-08-24 16:43] LABS: Slide Review Platelets confirmed
--- NOTE | 2024-08-24 17:17 | PC.SS ---
SS follow: spoke with patient's daughter, Ericka regarding hospice services. Family would like to pursue with home hospice, no preferred. Hospice agency of the day: [facility]. Referral was sent to them via [employer]. Patient's family requesting hospital bed and oxygen. Discharging address will be: [address] [facility] [address]. Plan is to discharge the patient home tomorrow with hospice services. Patient is now in ICU. Dr. Frazier was updated on discharging plan.
--- NOTE | 2024-08-24 18:04 | PC.CC ---
FELTONW, was contacted by [facility] in need of H&P and facesheet for patient. ASW uploaded clinicals via [employer] for [facility].
[2024-08-24 18:23] LABS: Reflex Lactate? Y
--- NOTE | 2024-08-24 18:45 | ESDS_ITS ---
Planned Discharge Date 08/24/24 DS: Providers Provider Date of admission: 08/19/24 17:45 Primary care physician: Rubén Triana MD Admitting Provider: William Herrera MD Attending Provider on Admission: Fadi Driscoll DO Consults: 08/24/24 16:55 Referral Hospice Stat Comment: Attending Provider on DC: Fadi Driscoll DO Discharging Provider: Fadi Driscoll DO DS: Diagnosis Problem List Completed Was Problem List Reviewed/Reconciled?: Yes Hospital Course Hospital Course Hospital course: Reason for hospitalization: altered mental status, PNA, Matthew Perez is 78 yr male with PMH of HTN, GERD, severe osteoarthritis of bilateral knees, current smoker, failure to thrive who presented to [facility] ED on 08/19/24 due to worsening fatigue, somnolence, weight loss, and unilateral leg swelling. Patient found to be hypoxic when picked up by EMS. Further history was obtained from daughter at bedside stating that his health started declining in past months with increased immobility. Workup in ED showed significant drop in platelts from previous admission in May 2024 (300K to 56k). Lactic acid was 2.6, UA negative, Head CT was negative for acute hemorrhage or midline shift, chest x-ray reading indicated: Diffuse left-sided infiltrate. Possible bilateral pleural effusions. U/s LE was positive for DVT. Patient was started on antibioti cs, fondaparinux, and Solu-Medrol 1 g daily for empiric treatment for possible ITP. CT angio chest was positive for PE. Cardiology Dr. Yanez was consulted. Their was no need for throbectomy as echo completed showed EF 50% and no evidence of right heart strain. Patient completed 3 days of Solu-Medrol therapy with no improvement in platelets. Slowly downtrending to 25. Fondaparinux was held on day two of admission due to extreme upper extremity bleeding. IV extravasation occurring in both arms and extensive bruising. IVC filter was placed on 08/23 as DVT prophylaxis. During hospitalization, pneumonia worsened as evidenced on CT and clinically with increase oxygen requirements. Extensive workup including hepatitits panel, cocci, and HIV were negative. DIC panel, HIT plt ab, rbc folate, haptoglobin are pending. Blood cultures were negative. Nutritional demands were not met as patient was also refusing food/unable to eat. Overall prognosis continued to worsen with lactic acid increasing, core body temperature dropping (90.1), hypotension, mottling in LE, and cold extremities. Family was updated about patient's status and decision was made to stop all invasive measures. Patient to be discharged home with hospice. Hospital Diagnoses: #Acute encephalopathy likely due to #Pneumonia #Possible aspiration #DVT #Pulmonary embolism #Thrombocytopenia #s/p IVC filter #Smoking The patient's management plan was discussed with my attending physician Dr. Driscoll. Kellen Cruz MD, PGY-1 Time Spent with Patient Time attestation: Total time spent providing and/or coordinating discharge services: Time spent: Less than 30 minutes Exam Vital Signs Temp Pulse Resp BP Pulse Ox O2 Del Method O2 Flow Rate 90.1 F L 94 16 104/74 90 L Nasal Cannula 10 08/24/24 15:16 08/24/24 15:16 08/24/24 15:16 08/24/24 15:16 08/24/24 15:16 08/24/24 11:44 08/24/24 15:16 Narrative Exam Constitutional: Frail looking elderly, in some distress, lying in bed, hard of hearing HEENT: NCAT, EOMI, reactive round pupils b/l, patent nares b/l, dry mucous membranes Lung: Distant breath sounds on L side, no wheezing, no rhonchi Heart: Regular S1S2, no murmurs, gallops, or rubs Abdomen: Soft, non-distended, non-tender, bowel sounds present throughout Extremities: some mottling in LE, cold, pale, swollen LE Neurologic: AOx1, unable to perform the rest due to mentation Skin: open wounds with bleeding on b/l hands, purpura noticed throughout body. b/L whole arms dusky, loose skin on extremities and back, sites of IV extravasation Discharge Plan Plan Patient Disposition: Home w/HOSPICE Prescriptions/Referrals Prescriptions/Med Rec: No Action lidocaine HCl [Xylocaine] 10 mg/mL (1 %) solution 20 ml Infiltration X1 Qty: 20 0RF triamcinolone acetonide 40 mg/mL suspension 40 mg intra-articular .x2 Qty: 1 0RF lisinopril 40 mg tablet 40 mg PO QDAY ibuprofen 800 mg Tablet 800 mg PO TID PRN (Reason: Pain) ondansetron HCl 4 mg tablet 4 mg PO Q6H PRN (Reason: nausea and vomiting) Patient Comments: TAKE 1 TABLET ORAL EVERY 6 HOURS FOR NAUSEA NEEDED albuterol sulfate 90 mcg/actuation HFA aerosol inhaler 2 puff INHALATION Q4H PRN (Reason: shortness of breath or wheezing) Patient Comments: TAKE 2 PUFFS BY MOUTH EVERY 4 HOURS NEEDED metoclopramide HCl 10 mg tablet 10 mg PO Q6H PRN (Reason: nausea and vomiting) Rx Instructions: if zofran ineffective pantoprazole [Protonix] 40 mg tablet,delayed release (DR/EC) 40 mg PO QDAY Qty: 20 0RF furosemide [Lasix] 20 mg tablet 20 mg PO QAM Qty: 4 0RF zinc oxide 22 % cream 1 applic topical .Twice daily Qty: 113 0RF Referrals: Rubén Triana MD [Primary Care Provider] - Patient/Caregiver Discharge Instructions Print Language: Mongolian Stand Alone Forms: [place] Award Info., Patient Portal Info Letter Quality Discharge Quality Measures none MD Attestestation MD Attestation Patient not discharged today as expected with home hospice, will be discharged on 08/25 as the patient's family home is not prepared as of yet to accommodate the patient.
--- NOTE | 2024-08-24 19:28 | PC.NURSE ---
called Dr. Hartley to clarify regarding patient's code status and comfort care orders, per Dr. Hartley will talk to primary team to regaridng this and to put in orders.
--- NOTE | 2024-08-24 20:38 | PC.NURSE ---
Instructed nurse Daniels to obtain clarification order of pt's Code Status. Pt has multiple family members at bedside. I spoke with patient's daughter and other family members in the room to clarify patient's the code status. Ericka states we want nothing done, no meds, no oxygen or no pain med at all. Pt is awake at times and family attempting to converse with him but pt is hard of hearing. Pt appears comfortable, no signs of distress. Patient moved to room 350 closer to the waiting room per family request.
--- NOTE | 2024-08-24 21:00 | PC.NURSE ---
Dr. Hartley at bedside with the patient and his two daughters and one son to discuss his plan of care.
--- NOTE | 2024-08-24 21:29 | EVENTNT_ITS ---
Documentation for date of: 08/24/24 Event Note Event Note: Around 9 PM, nurse taking care of the patient called me and reported me that the family wants to talk with her doctor. I responded immediately, and the patient's family were at bedside. 3 of his children were at bedside, 2 da ughters and 1 son, and they have been making the decision for the patient collaboratively. The primary hospitalist team already had goals of care discussion during daytime, and patient was supposed to go home with hospice. However, the patient was having agonal breathing, and family acknowledged that the patient is not going to return back from this condition. Couple months ago, they also had discussion with the patient, and the patient had mentioned that if the condition comes from where the possibility of returning back to healthy life is very low, he would like To Be kept comfortable. They were explained about the comfort care measures with morphine drip and they agreed with the plans. We respected patient's family wishes, and proceeded with comfort measures. The patient's management plan was discussed with my attending physician MD Lawson Sears MD, PGY2
--- NOTE | 2024-08-24 23:09 | PD.EVENT ---
Documentation for date of: 08/24/24 Event Note Event Note: No acute events overnight per the patient, presently being treated for community-acquired pneumonia, DVT, pulmonary embolism, severe thrombocytopenia possibly secondary from chronic DIC versus ITP versus TTP. Significant labs this morning demonstrated persistent elevated leukocyte count of 17, hemoglobin stable 10.7, platelets did drop again to 25, slight metabolic acidosis noted with a bicarb of 19, several additional labs were ordered to try to determine the cause of the patient's thrombocytopenia to include medication causes versus other infectious etiologies, hepatitis panel HIV ordered which was negative, we did order an additional HIT panel, DIC panel, cocci, ultrasound of the patient's abdomen to assess for any splenomegaly, and haptoglobin which are pending. I also orderedan ADAMS13 to assess for TTP considering PLASMIC score was moderate risk. The patient already completed a short course of steroids, Solu-Medrol 1 g daily in which the patient's platelets initially did improve however began to decline once again. We consulted hematology, Dr. Lamar today who agreed to see the patient. Considering the patient's persistent leukocytosis, I did repeat blood cultures and switched the patient's antibiotics to Zosyn, 4.5 g every 6 hours considering his extensive left lobe pneumonia. The patient did have an IVC filter placed yesterday and per hematology recommendations, will continue to hold anticoagulation patient at this time considering extremity bleeding and weeping. I did meet with the family in the morning to include the patient's son and 2 daughters. Patient's son wanted the patient to proceed home with home hospice, stating that his father did not want any aggressive workup or management. 1 daughter was somewhat indecisive and the patient's other daughter Ericka wanted to proceed with further workup and management. I told them of my plan for additional serologies and infectious workup, switching of antibiotics and the hematology consult. I explained to them that the patient did have very serious conditions and that his prognosis may be poor however it may be reasonable to get this workup done and reassess in a day or 2 in which they agreed before deciding on hospice. A couple of hours later, a rapid response was called for the patient in which his temperature was noted to be approximately 90 ?F. At that time I decided to transfer the patient to telemetry proceed with active and passive warming measures. Considering no bed availability, the patient would be placed on telemetry in the ICU. When the patient did arrive in the ICU, his blood pressure became soft, his MAP was noted to be about 50-55. IV access was also lost. We explained to the patient's family that we may have to place the patient on pressor support for hemodynamic instability, and a central line would have to be placed. We explained all the risks and benefits however the family decided that time that they would rather proceed with making the patient comfortable in proceeding with hospice care at that time. We respected the patient's wishes, we put an order in for hospice care and discontinued all unnecessary labs and treatment modalities. I did have a automation qa tester come to bedside per family's request which he did. The patient stated they needed the day to accommodate the patient at their home and make it ready for his arrival hence discharge home with home hospice will occur on 08/25. Hematology and cardiology was notified of the plan as they are consulted.
[2024-08-24] MEDS: SCOPOLAMINE 1 MG TDSY TOP (23:15)
[2024-08-24] MEDS: Morphine IV Drip 100mg/100ml 100 ML IV (23:20)
--- NOTE | 2024-08-24 23:23 | PC.NURSE ---
called Dr. Street regarding discussion with family regarding the patient's code status, what they want to be done for the patient while he is here at the hospital, doctor to come up to see the patient and family to discuss his care.
--- NOTE | 2024-08-25 02:18 | PD.DPN ---
Documentation for date of: 08/25/24 Pronouncement Note Date and Time of Date of : 08/25/24 Time of : 02:11 PCOD Preliminary cause of : Cardiopulmonary arrest Contributing Factors (1) Pneumonia: (2) Pulmonary embolism: Summary Additional details: At 2:06 am I reveived a call from RN regarding the patient's pulse not able to be felt. I immediately responded. The patient did not had any pulse, auscultation revealed no respiration, no heart rate and pupils were fixed and dilated. I pronounced the patient being at 2:11 am. RN at bedside, and asked her to inform the family members, and provide condolences. Additional Data Confirmation of : no pulse, no respirations, no heart sounds and pupils fixed and dilated Family: contacted Additional persons at bedside: other (RN) Attending physician: Fadi Driscoll, DO Was code activated?: No (DNR/Comfort care) Advance directives: Yes
--- NOTE | 2024-08-25 02:30 | PC.NURSE ---
rounded on patient at 0200 in room, found patient unresponsive to speech, pain, shaking. Called Dr. Kinsey regarding patient might have passed. Dr. Hartley at bedside assessed the patient, Dr. Hartley pronounced time of at 0211. No family member present at bedside at this time, will call family.
--- NOTE | 2024-08-25 03:10 | PC.NURSE ---
called [facility] at 0247 regarding patient's passing, talked to Marlen ID number [id number].
--- NOTE | 2024-08-25 03:40 | PC.NURSE ---
[facility] called regarding picking belt operator time, EST for picking belt operator of remains at 0440. Family made aware.
--- NOTE | 2024-08-25 04:43 | PC.NURSE ---
[facility] [place] as family decided thi is where patient's remains to be released. Talked to Lien about patient's passing and provided information about the patient.
--- NOTE | 2024-08-25 05:29 | PC.NURSE ---
[facility] [place] [facility] picked up patient's remains at 0450.
[2024-08-25 12:50] LABS: Cocci Serology, IgM Negative (Negative)
--- NOTE | 2024-08-25 16:47 | PD.DDS ---
Documentation for date of: 08/25/24 Summary Date and Time Date of admission: 08/19/24 17:45 Date of : 08/25/24 Time of : 02:11 Summary Details: At 2:06 call received from RN regarding the patient's weak pulse. At bedside, no pulse palpated, auscultation revealed no respiration, no heart rate, and pupils were fixed and dilated. Patient's time of at 2:11 am. RN at bedside. Family was informed and condolences given. Hospital Course: Matthew Perez is 78 yr male with PMH of HTN, GERD, severe osteoarthritis of bilateral knees, current smoker, failure to thrive who presented to [facility] ED on 08/19/24 due to worsening fatigue, somnolence, weight loss, and unilateral leg swelling. Patient found to be hypoxic when picked up by EMS. Further history was obtained from daughter at bedside stating that his health started declining in past months with increased immobility. Workup in ED showed significant drop in platelts from previous admission in May 2024 (300K to 56k). Lactic acid was 2.6, UA negative, Head CT was negative for acute hemorrhage or midline shift, chest x-ray reading indicated: Diffuse left-sided infiltrate. Possible bilateral pleural effusions. U/s LE was positive for DVT. Patient was started on antibiotics, fondaparinux, and Solu-Medrol 1 g daily for empiric treatment for possible ITP. CT angio chest was positive for PE. Cardiology Dr. Yanez was consulted. Their was no need for thrombectomy as echo completed showed EF 50% and no evidence of right heart strain. Patient completed 3 days of Solu-Medrol therapy with no improvement in platelets. Slowly downtrending to 25. Fondaparinux was held on day two of admission due to extreme upper extremity bleeding. IV extravasation occurring in both arms and extensive bruising. IVC filter was placed on 08/23 as DVT prophylaxis. During hospitalization, pneumonia worsened as evidenced on CT and clinically with increase oxygen requirements. Extensive workup including hepatitits panel, cocci, and HIV were negative. DIC panel, HIT plt ab, rbc folate, haptoglobin were ordered however results were pending. Blood cultures were negative. Nutritional demands were not met as patient was also refusing food/unable to eat. Overall prognosis continued to worsen with lactic acid increasing, core body temperature dropping (90.1), hypotension, mottling in LE, and cold extremities. Family was updated about patient's status and decision was made to stop all invasive measures and pursue hospice care and eventually comfort measures only in the hospital when he further declined. Patient was to be discharged home with home hospice on 08/25. However overnight, condition worsened with agonal breathing and family decided to switch to comfort care measures on the night of 08/24. Patient passed soon after at 2:11AM on 08/25. Family was informed and condolences given. Additional Data Attending physician: Fadi Driscoll, Visit Providers Provider Primary care physician: Rubén Triana MD Consults: 08/24/24 16:55 Referral Hospice Stat Comment: Diagnosis Contributing Factors (1) Pneumonia: (2) Pulmonary embolism: Discharge Plan Plan Patient Disposition: Prescriptions/Referrals Referrals: Rubén Triana MD [Primary Care Provider] - Patient/Caregiver Discharge Instructions Print Language: Peruvian Stand Alone Forms: [facility] Award Info., Patient Portal Info Letter
[2024-08-26 11:10] LABS: Cocci Serology, IgG Negative (Negative)
[2024-08-28 08:15] LABS: Heparin-Induced PLT AB NEGATIVE (NEGATIVE)
[2024-08-28 08:16] LABS: Haptoglobin* 114 mg/dL (43-212)
[2024-08-29 06:36] LABS: Folate, RBC* 518 ng/mL RBC (>280)
== END 2024-08-25 02:11 | disposition expired | DRG 177 ==
LOC: SERX 17:47 → SERHOLD 18:10 → S3SX 20:10 → S2SX 08-24 15:46 → S3SX 08-24 17:58 → S3NX 08-24 20:12
PROVIDERS: Internal Medicine; Nurse Practitioner Family; Student in an Organized Health Care Education/Training Program; Admitting Provider Student in an Organized Health Care Education/Training Program; Emergency Provider Emergency Medicine; PCP Internal Medicine; Visit Provider Student in an Organized Health Care Education/Training Program
DX: J15.29 Pneumonia due to other staphylococcus (principal); G93.41 Metabolic encephalopathy; I26.99 Other pulmonary embolism without acute cor pulmonale; R18.8 Other ascites; I82.412 Acute embolism and thrombosis of left femoral vein; D69.3 Immune thrombocytopenic purpura; J69.0 Pneumonitis due to inhalation of food and vomit; J10.08 Influenza due to other identified influenza virus with other specified pneumonia; M17.0 Bilateral primary osteoarthritis of knee; K21.9 Gastro-esophageal reflux disease without esophagitis; D69.6 Thrombocytopenia, unspecified; R09.02 Hypoxemia; F17.210 Nicotine dependence, cigarettes, uncomplicated; I11.0 Hypertensive heart disease with heart failure; I50.9 Heart failure, unspecified; I48.91 Unspecified atrial fibrillation; Z66 Do not resuscitate; K74.60 Unspecified cirrhosis of liver; R62.7 Adult failure to thrive; D64.9 Anemia, unspecified; E87.6 Hypokalemia; F03.90 Unspecified dementia, unspecified severity, without behavioral disturbance, psychotic disturbance, mood disturbance, and anxiety; I95.9 Hypotension, unspecified; I46.8 Cardiac arrest due to other underlying condition; Z51.5 Encounter for palliative care; Z74.01 Bed confinement status; Z90.49 Acquired absence of other specified parts of digestive tract; Z95.828 Presence of other vascular implants and grafts
CPT/HCPCS: 36415; 36600; 70450; 71045; 71275; 74018; 76700; 76882; 80048; 80053; 80074; 81001; 82140; 82270; 82607; 82747; 82803; 83010; 83605; 83615; 83735; 83880; 84100; 84132; 84145; 84443; 84484; 85007; 85025; 85027; 85046; 85379; 85384; 85610; 85730; 86022; 86140; 86331; 86635; 86703; 86850; 86900; 86901; 87040; 87077; 87081; 87186; 89220; 93005; 93225; 93306; 93970; 94640; 94762; 99285; A4649; A9270; C1769; C1880; C1894; J0456; J0696; J1642; J1652; J1885; J2270; J2470; J2543; J2919; J3010; J3475; J3480; J3490; J7030; J7040; J7050; J7120; Q9967